=== PATIENT | female | born 1940 | race Caucasian/White ===

== ENCOUNTER 2018-02-23 13:32 | Inpatient (IN) | payer OTHER, MEDICARE ==
[~2018-02-23] VITALS: Ht 170.2 cm; Wt 103.4 kg
[~2018-02-23 13:32] MED LIST: ACTOS15 MG PO; ACTOS45 MG PO; FERROUS SULFATE65 MG PO; FISH OIL1000 MG PO; FUROSEMIDE40 MG PO; GEMFIBROZIL600 MG PO; GLIPIZIDE XL10 MG PO; LEVOTHYROXIN0.075 M1 PO; LOSARTAN POTASS50 MG PO; METFORMIN ER500 MG PO; MORPHINE SULFAT15 M2 PO; OXYCONTIN10 MG PO; PERCOCET 325 MG1 TA2 PO; POTASSIUM CHLO10 MEQ PO; ROZEREM8 MG PO; TRAMADOL HCL50 MG PO; TYLENOL #31 TAB PO; VITAMIN B-121000 MCG PO; VITAMIN D3 202000 IU PO; WARFARIN SODIUM5 MG PO
--- NOTE | 2018-02-23 13:56 | ED SYNCOPE COMPLAINT ---
History of Present Illness General Chief Complaint: Syncope and Near-Syncope Stated Complaint: BIBA SYNCOPE Source: patient, family, old records Exam Limitations: no limitations Vital Signs & Intake/Output Vital Signs & Intake/Output Vital Signs Date Time Temp Pulse Resp B/P B/P Pulse O2 O2 Flow FiO2 Mean Ox Delivery Rate 02/23 1523 155/67 02/23 1448 73 97/47 100 Room Air 02/23 1425 97.0 72 20 105/52 100 Room Air 02/23 1340 74 16 139/60 100 Room Air 02/23 1338 100 Room Air Allergies Coded Allergies: NO KNOWN ALLERGIES (06/01/14) Reconcile Medications Allopurinol 300 MG TABLET 1 TAB PO DAILY GOUT (Reported) Exenatide Microspheres (Bydureon Pen) (Unknown Strength) PEN.INJCTR (Unknown Dose) SC QWED DM (Reported) Furosemide 40 MG TABLET 2 TAB PO QAM DIURETIC (Reported) Gemfibrozil 600 MG TABLET 1 TAB PO BID CHOLESTEROL (Reported) Glipizide (Glipizide ER) 2.5 MG TAB.ER.24 1 TAB PO DAILY DM (Reported) Levothyroxine Sodium 75 MCG TABLET 1 TAB PO DAILY THYROID (Reported) Losartan Potassium 50 MG TABLET 1 TAB PO DAILY BP (Reported) Metformin HCl (Metformin HCl ER) 500 MG TAB.ER.24H 2 TAB PO BID DM (Reported) Potassium Chloride 10 MEQ CAPSULE.ER 1 CAP PO DAILY SUPPLEMENT (Reported) Warfarin Sodium 5 MG TABLET 7.5 MG PO MOWETRFRSASU BLOOD THINNER (Reported) Warfarin Sodium (Coumadin) 10 MG TABLET 1 TAB PO QTUES BLOOD THINNER ( Reported) Triage Note: 78 y/o FEMALE [facility]ODRIGUE[facility]IT[facility]ED SYNCOPE DURING SERVICES. PER FAMILY MEMBER WHO WAS PRESENT, STATES "SHE GOT UP OUT OF THE CAR AND JUST WENT DOWN. A DELICATESSEN DEPARTMENT MANAGER ASSISTED HER DOWN TO THE GROUND. HER LIPS TURNED BLUE AND SHE WAS COLD". PT AROUSABLE, ALERT AND ORIENTED X 3 UPON EMS ARRIVAL. [facility]. ARRIVES TO ED C/O L FLANK PAIN AND NAUSEA. DRY HEAVING IN ROOM EKG IN PROGESSS MD AT BEDSIDE Triage Nurses Notes Reviewed? yes HPI: Patient was at the of her grandson. [place] she is certainly felt very lightheaded and had a syncopal episode. Patient was caught and lowered to the ground. Patient states that while in the religious she developed a sharp stabbing pain in the left side of her back. The pain was constant however, it got much worse with any movement or deep breath. There is no radiation of the pain. At its worst the pain is 10 out of 10 however if she stays still the pain as a 4 out of 10. There is slight nausea but no vomiting. Past History Travel History Traveled to [place] past 21 day No Medical History Any Pertinent Medical History? 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 No Review of Systems Review of Systems Constitutional: Reports: no symptoms. EENTM: Reports: no symptoms. Respiratory: Reports: no symptoms. Cardiovascular: Reports: no symptoms. GI: Reports: see HPI, nausea. Genitourinary: Reports: no symptoms. Musculoskeletal: Reports: see HPI, back pain. Skin: Reports: no symptoms. Neurological/Psychological: Reports: no symptoms. All Other Systems: Reviewed and Negative Physical Exam Physical Exam General Appearance: well developed/nourished, alert, awake, anxious, moderate distress Head: atraumatic, normal appearance Eyes: Bilateral: PERRL, EOMI. Ears, Nose, Throat: normal pharynx, normal ENT inspection, DRY MUCOSA Neck: normal inspection, supple, full range of motion Respiratory: normal breath sounds, chest non-tender, no respiratory distress, lungs clear Cardiovascular: regular rate/rhythm, normal peripheral pulses Gastrointestinal: normal bowel sounds, soft, non-tender, no organomegaly Back: muscle spasm Extremities: normal inspection, normal capillary refill, normal range of motion, no edema Psychiatric: awake, alert, oriented x 3 Cranial Nerves: normal hearing, normal speech, PERRL Motor/Sensory: no motor/sensory deficits Skin: intact, normal color, diaphoresis Core Measures ACS in differential dx? Yes CVA/TIA Diagnosis: No Sepsis Present: No Sepsis Focused Exam Completed? No Progress Differential Diagnosis: AMI, aortic dissection, drug induced syncope, orthostatic syncope, pulmonary embolus, sick sinus syndrome Plan of Care: Orders Procedure Date/time Status Heart Healthy Diet 02/23 D Active ED Holding Orders 02/24 1600 Active Admit to inpatient 02/23 1600 Active Vital Signs 02/23 1600 Active Code Status 02/23 1600 Active PARTIAL THROMBOPLASTIN TIME 02/23 1355 Complete PROTHROMBIN TIME 02/23 1355 Complete URINALYSIS 02/23 1354 Complete TROPONIN LEVEL 02/23 1354 Complete COMPREHENSIVE METABOLIC PANEL 02/23 1354 Complete CBC WITHOUT DIFFERENTIAL 02/23 1354 Complete EKG 02/23 1333 Active Current Medications Sig/Mauro Start time Last Medication Dose Stop Time Status Admin Hydromorphone HCl 0.5 MG ONCE ONE 02/23 1600 AC (Dilaudid) 02/23 1601 Sodium Chloride 1,000 ML ONCE ONE 02/23 1415 AC 02/23 (Normal Saline 0.9%) 02/23 2214 1430 Morphine Sulfate 2 MG ONCE ONE 02/23 1400 CAN (MORPHINE SULFATE) 02/23 1401 Laboratory Tests 02/23/18 1452: Urinalysis LIGHT H, Urine Color YEL, Urine Clarity HAZY H, Urine pH 6.5, Ur Specific [place] 1.010, Urine Protein NEG, Urine Ketones NEG, Urine Nitrite NEG, Urine Bilirubin NEG, Urine Urobilinogen 0.2, Ur Leukocyte Esterase MOD H, Ur Microscopic SEDIMENT EXAMINED, Urine RBC RARE, Urine WBC 5-10 H, Ur Epithelial Cells MANY H, Urine Bacteria FEW H, Urine Mucus RARE, Urine Hemoglobin NEG, Urine Glucose NEG 02/23/18 1403: Anion Gap 14, Estimated GFR 33 L, BUN/Creatinine Ratio 28.7 H, Glucose 254 H, Calcium 9.5, Total Bilirubin 0.6, AST 40 H, ALT 30, Alkaline Phosphatase 74, Troponin I 0.15 *H, Total Protein 6.1 L, Albumin 3.7, Globulin 2.4, Albumin/ Globulin Ratio 1.5, PT 74.5 *H, INR 6.70 *H, APTT 68 H, CBC w Diff NO MAN DIFF REQ, RBC 3.23 L, MCV 95.1, MCH 31.7 H, MCHC 33.4, RDW 15.2 H, MPV 8.6, Gran % 84.4 H, Lymphocytes % 8.5 L, Monocytes % 6.3, Eosinophils % 0.3, Basophils % 0.5, Absolute Granulocytes 12.1 H, Absolute Lymphocytes 1.2, Absolute Monocytes 0.9 H, Absolute Eosinophils 0, Absolute Basophils 0.1 Diagnostic Imaging: Viewed by Me: CT Scan. Discussed w/RAD: CT Scan. Radiology Impression: PATIENT: JAKE MCCANN PRESENT AGE: 78 PATIENT ACCOUNT NO: [id number] : 38 LOCATION: [facility] ORDERING PHYSICIAN: Kodak Lund MD SERVICE DATE: 02/23/18 EXAM TYPE: CAT - CT ABD & PELVIS W/O IV CONTRAS EXAMINATION: CT ABDOMEN AND PELVIS WITHOUT CONTRAST CLINICAL INFORMATION: Flank pain. Syncope. COMPARISON: Pelvic CT 2013. TECHNIQUE: Multidetector volumetric imaging was performed from the superior aspect of the liver through the pubic symphysis. Sagittal and coronal reformatted images were obtained on the technologist's workstation. DLP: 1331 mGy-cm FINDINGS: LUNG BASES: Suspect mild subsegmental atelectasis in the left lower lobe and lingula. Possible trace left pleural fluid without large effusion. Small hiatal hernia. LIVER, GALLBLADDER, AND BILIARY TREE: Suspect mild focal fatty infiltration in segment 4 adjacent to the falciform ligament. There are calculi in the gallbladder fossa, either within the cystic duct or decompressed gallbladder (if no prior history of cholecystectomy). No significant biliary ductal dilatation. PANCREAS: Unremarkable. SPLEEN: Unremarkable. ADRENAL GLANDS: Unremarkable. KIDNEYS AND URETERS: There is heterogeneous material within and abutting the left kidney as well as extending within the left perinephric space. Favor a component of this heterogeneous material represents blood product. Local left perinephric stranding is demonstrated. There is either a heterogeneous fluid collection or mass arising from the posterior aspect of the left mid to lower kidney, measuring approximately 7.1 x 5.0 cm transaxially on image 36/98. Other seemingly loculated/organized fluid tracks along the posterior left pararenal space into the pelvis. No hydronephrosis. No renal or ureteral calculi. BLADDER: No focal abnormality. GASTROINTESTINAL TRACT: Bowel gas pattern is nonobstructive. No evidence of acute bowel inflammation. There are scattered clonic diverticula without evidence of diverticulitis. The appendix is unremarkable. ABDOMINAL WALL : No significant hernia is appreciated. LYMPH NODES: No bulky adenopathy. VASCULAR: Scattered atherosclerotic disease including coronary artery calcification. No AAA. PELVIC VISCERA: No free pelvic fluid. Calcified uterine fibroid. No suspicious adnexal mass. OSSEOUS STRUCTURES: No acute osseous abnormality. Multilevel degenerative changes of the spine. Right proximal femoral hardware is redemonstrated. Healed right pubic bone fracture. IMPRESSION : 1. Heterogeneous abnormal radiodensity extending from the left posterior kidney into the left pararenal space. Findings are concerning for local heterogeneous hemorrhage. The etiology is uncertain, and hemorrhage secondary to supratherapeutic INR or underlying neoplasm can be considered (i.e. renal cell carcinoma or AML). An infectious process is considered less likely. Consider correlation with urinalysis/urine cytology. Recommend short-term followup abdominal MRI or CT scan without and with contrast to assess for an underlying enhancing mass lesion. 2. No AAA. 3. Other nonacute findings as above. Findings and recommendations discussed with Dr. Lund at 3:35 PM on 02/23/2018. 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 <Electronically signed in Other Vendor System> SIGNED BY: Mahamed Driver MD 02/23/18 7444 Initial ED EKG: AFIB, nonspecific ST T wave chg Prior EKG: unchanged Departure Departure Disposition: STILL A PATIENT Condition: Guarded Clinical Impression Primary Impression: Supratherapeutic INR Secondary Impressions: Elevated troponin, Retroperitoneal bleed, Syncope Referrals: Nina Montalvo APRN (PCP/Family) Departure Forms: Customer Survey General Discharge Information Admission Note Spoke With: Samantha Baerd MD Documentation of Exam: Documentation of any treatments & extenuating circumstances including Concerns Regarding Discharge (functional status, medication knowledge or non-compliance, living conditions, etc.) that warrant an admission rather than observation: [ Admit to telemetry, hold Coumadin, cardiology consultation, urology consultation , pain control] Critical Care Note Critical Care Note Critical Care Time: mins: (90MIN)
[2018-02-23 14:35] LABS: ABSOLUTE BASOPHIL COUNT 0.1 /CUMM (0.0-0.2); ABSOLUTE EOSINOPHIL COUNT 0 /CUMM (0.0-0.7); ABSOLUTE GRANULOCYTE CT 12.1 /CUMM (1.4-6.5); ABSOLUTE LYMPH COUNT 1.2 /CUMM (1.2-3.4); ABSOLUTE MONOCYTE COUNT 0.9 /CUMM (0.10-0.60); BASOPHIL % 0.5 % (0.0-2.0); EOSINOPHIL % 0.3 % (0-5); GRANULOCYTE % 84.4 % (42.2-75.2); HEMATOCRIT 30.7 % (37-47); MEAN CORPUSCULAR HGB 31.7 PG (27.0-31.0); MEAN CORPUSCULAR HGB CONC 33.4 G/DL (33.0-37.0); MEAN CORPUSCULAR VOLUME 95.1 FL (81.0-99.0); MEAN PLATELET VOLUME 8.6 FL (7.4-10.4); PLATELET COUNT 264 /CUMM (130-400); RBC DISTRIBUTION WIDTH 15.2 % (11.5-14.5); RED BLOOD CELL CT 3.23 /CUMM (4.20-5.40); WHITE BLOOD CELL COUNT 14.3 /CUMM (4.8-10.8)
[2018-02-23 14:51] LABS: PTT 68 SEC (25-37)
[2018-02-23 14:54] LABS: PT 74.5 SEC (9.4-12.5)
[2018-02-23] MEDS ORDERED: FUROSEMIDE40 M1 PO (15:47)
[2018-02-23] MEDS ORDERED: WARFARIN SODIUM5 M1 PO (15:48)
[2018-02-23] MEDS ORDERED: COUMADIN10 M1 PO (15:48)
[2018-02-23] MEDS ORDERED: GEMFIBROZIL600 M1 PO (15:49)
[2018-02-23] MEDS ORDERED: LOSARTAN POTASS50 M1 PO (15:49)
[2018-02-23] MEDS ORDERED: GLIPIZIDE ER2.5 M1 PO (15:49)
[2018-02-23] MEDS ORDERED: ALLOPURINOL300 M1 PO (15:49)
[2018-02-23] MEDS ORDERED: POTASSIUM CHLO10 ME3 PO (15:49)
[2018-02-23] MEDS ORDERED: LEVOTHYROXINE75 MCG PO (15:49)
[2018-02-23] MEDS ORDERED: METFORMIN HCL500 M4 PO (15:50)
[2018-02-23] MEDS ORDERED: BYDUREON P2 MG/0.65 SC (15:51)
--- NOTE | 2018-02-23 15:52 | CT SCAN REPORT ---
EXAMINATION: CT ABDOMEN AND PELVIS WITHOUT CONTRAST CLINICAL INFORMATION: Flank pain. Syncope. COMPARISON: Pelvic CT 05/31/2014. TECHNIQUE: Multidetector volumetric imaging was performed from the superior aspect of the liver through the pubic symphysis. Sagittal and coronal reformatted images were obtained on the technologist's workstation. DLP: 1331 mGy-cm FINDINGS: LUNG BASES: Suspect mild subsegmental atelectasis in the left lower lobe and lingula. Possible trace left pleural fluid without large effusion. Small hiatal hernia. LIVER, GALLBLADDER, AND BILIARY TREE: Suspect mild focal fatty infiltration in segment 4 adjacent to the falciform ligament. There are calculi in the gallbladder fossa, either within the cystic duct or decompressed gallbladder (if no prior history of cholecystectomy). No significant biliary ductal dilatation. PANCREAS: Unremarkable. SPLEEN: Unremarkable. ADRENAL GLANDS: Unremarkable. KIDNEYS AND URETERS: There is heterogeneous material within and abutting the left kidney as well as extending within the left perinephric space. Favor a component of this heterogeneous material represents blood product. Local left perinephric stranding is demonstrated. There is either a heterogeneous fluid collection or mass arising from the posterior aspect of the left mid to lower kidney, measuring approximately 7.1 x 5.0 cm transaxially on image 36/98. Other seemingly loculated/organized fluid tracks along the posterior left pararenal space into the pelvis. No hydronephrosis. No renal or ureteral calculi. BLADDER: No focal abnormality. GASTROINTESTINAL TRACT: Bowel gas pattern is nonobstructive. No evidence of acute bowel inflammation. There are scattered clonic diverticula without evidence of diverticulitis. The appendix is unremarkable. ABDOMINAL WALL: No significant hernia is appreciated. LYMPH NODES: No bulky adenopathy. VASCULAR: Scattered atherosclerotic disease including coronary artery calcification. No AAA. PELVIC VISCERA: No free pelvic fluid. Calcified uterine fibroid. No suspicious adnexal mass. OSSEOUS STRUCTURES: No acute osseous abnormality. Multilevel degenerative changes of the spine. Right proximal femoral hardware is redemonstrated. Healed right pubic bone fracture. IMPRESSION: 1. Heterogeneous abnormal radiodensity extending from the left posterior kidney into the left pararenal space. Findings are concerning for local heterogeneous hemorrhage. The etiology is uncertain, and hemorrhage secondary to supratherapeutic INR or underlying neoplasm can be considered (i.e. renal cell carcinoma or AML). An infectious process is considered less likely. Consider correlation with urinalysis/urine cytology. Recommend short-term followup abdominal MRI or CT scan without and with contrast to assess for an underlying enhancing mass lesion. 2. No AAA. 3. Other nonacute findings as above. Findings and recommendations discussed with Dr. Lund at 3:35 PM on 02/23/2018.
--- NOTE | 2018-02-23 18:05 | PN- Att Addend ---
Attending Addendum Attending Brief Note 78-year-old female with history of atrial fibrillation on anticoagulation therapy brought in by ambulance for evaluation of syncope episode of low blood pressure. Apparently patient was at the of her grandson earlier on today when she complained of left flank pain. Later on she had a syncopal episode was assisted down by bystanders. She denies any trauma at the time of syncope. She denies any trauma prior to that. In the emergency room she was found to have a supratherapeutic INR. Imaging done to evaluate the cause of her abdominal pain raise concern for left-sided retroperitoneal hemorrhage. She was then referred to medical service for further management. Evaluation emergency room patient was lethargic. She had apparently received doses of morphine and then Dilaudid for pain control. Blood pressure was borderline in the low 100s. She was not tachycardic. EKG showed atrial fibrillation with no ischemic changes. Laboratory data shows hemoglobin of around 10. Examination she is lethargic but oriented 3. Complained of left-sided flank pain during the exam. Pupils were equal and reactive. Heart rate was regular. Lungs are clear to auscultation. Abdomen was soft nontender with normal bowel sounds. She did have left flank tenderness. She had no peripheral edema. Problems: 1. Abnormal troponin; probably secondary to demand ischemia. 2. Hypotension; with concern for hemorrhagic loss 3. Syncope 4. Retroperitoneal hemorrhage 5. Supratherapeutic INR 6. Atrial fibrillation on anticoagulation Plan: -Admit to inpatient medical service for further management. -Further management in the intensive care unit on account of concern for hemorrhage. -Urology Consultation. Differential from renal imaging include malignancy. -Administer 10 mg of vitamin K orally. Transfuse 2 units of FFP. -Place ayers and monitor urine output. -Hold Coumadin therapy for now in view of retroperitoneal hemorrhage and drop in hemoglobin level. -Type and screen 2 units of packed red blood cells. Transfuse for hemoglobin level less than 8. -Repeat CBC now and monitor CBC every 8 hours. -Trend troponins, obtain echocardiogram, cardiology consultation.
[2018-02-23 18:18] LABS: ABSOLUTE BASOPHIL COUNT 0 /CUMM (0.0-0.2); ABSOLUTE EOSINOPHIL COUNT 0 /CUMM (0.0-0.7); ABSOLUTE GRANULOCYTE CT 10.9 /CUMM (1.4-6.5); ABSOLUTE LYMPH COUNT 0.9 /CUMM (1.2-3.4); ABSOLUTE MONOCYTE COUNT 0.8 /CUMM (0.10-0.60); BASOPHIL % 0.3 % (0.0-2.0); EOSINOPHIL % 0 % (0-5); MEAN CORPUSCULAR HGB 31.8 PG (27.0-31.0); MEAN CORPUSCULAR HGB CONC 33.7 G/DL (33.0-37.0); MEAN CORPUSCULAR VOLUME 94.4 FL (81.0-99.0); MEAN PLATELET VOLUME 8.5 FL (7.4-10.4); PLATELET COUNT 266 /CUMM (130-400); RBC DISTRIBUTION WIDTH 15.1 % (11.5-14.5); WHITE BLOOD CELL COUNT 12.7 /CUMM (4.8-10.8)
[2018-02-23 18:33] LABS: HEMATOCRIT 20.7 % (37-47)
[2018-02-23 18:34] LABS: RED BLOOD CELL CT 2.19 /CUMM (4.20-5.40)
[2018-02-23 18:54] LABS: GRANULOCYTE % 86.2 % (42.2-75.2)
--- NOTE | 2018-02-23 19:05 | History & Physical ---
General Information and HPI MD Statement: I have seen and personally examined JAKE MCCANN and documented this H&P. The patient is a 78 year old F who presented with a patient stated chief complaint of [syncope]. Source of Information: patient, family Exam Limitations: no limitations History of Present Illness: Patient is 78 year old female with past medical history significant for atrial fibrillation on Coumadin, diabetes mellitus and spinal stenosis who presented to ED after a syncopal attack. The patient was attending a servces of her grandson who committed suicide last week, while she was in the hindu she felt dizzy and blurry vision, when she was stepping out from the car in the [place] she suddenly lost consciousness didn't fall as he was caught by her family. LOC for 1-2 minutes, when she woke up she was alert oriented, no seizure or urine and stool incontinence. Blood sugar was measured and it was 244, blood pressure was on low side. Patient denied any shortness of breath, chest pain, palpitation. Denied any similar past history. Reportedly patient had a poor oral intake and sleep over the last week because of the tragdy. During interview patient stated feeling blurry vision and feeling nauseated. She was very pale however she was alert oriented 3 and responded appropriately to all my questions. Also patient reported sudden onset of left flank pain while she was in the hindu, she didn't mention anything to the family because she didn't want to scare them, pain was on and off precipitated by emotional feelings. ED pain was severe. No burning with urination, no history of hematuria. Patient usually measured high INR at the cancer center, last visit was 2 weeks ago INR was 2.2. Patient reported education compliance denied any overdose on the warfarin. Allergies/Medications Allergies: Coded Allergies: NO KNOWN ALLERGIES (06/01/14) Home Med list Allopurinol 300 MG TABLET 1 TAB PO DAILY GOUT (Reported) Exenatide Microspheres (Bydureon Pen) (Unknown Strength) PEN.INJCTR (Unknown Dose) SC QWED DM (Reported) Furosemide 40 MG TABLET 2 TAB PO QAM DIURETIC (Reported) Gemfibrozil 600 MG TABLET 1 TAB PO BID CHOLESTEROL (Reported) Glipizide (Glipizide ER) 2.5 MG TAB.ER.24 1 TAB PO DAILY DM (Reported) Levothyroxine Sodium 75 MCG TABLET 1 TAB PO DAILY THYROID (Reported) Losartan Potassium 50 MG TABLET 1 TAB PO DAILY BP (Reported) Metformin HCl (Metformin HCl ER) 500 MG TAB.ER.24H 2 TAB PO BID DM (Reported) Potassium Chloride 10 MEQ CAPSULE.ER 1 CAP PO DAILY SUPPLEMENT (Reported) Warfarin Sodium 5 MG TABLET 7.5 MG PO MOWETRFRSASU BLOOD THINNER (Reported) Warfarin Sodium (Coumadin) 10 MG TABLET 1 TAB PO QTUES BLOOD THINNER ( Reported) Past History Travel History Traveled to [place] past 21 day No Medical History Neurological: NONE EENT: NONE Cardiovascular: AFIB, hypertension Respiratory: NONE Gastrointestinal: NONE Hepatic: NONE Renal: NONE Musculoskeletal: HIP FX Psychiatric: NONE Endocrine: diabetes Blood Disorders: NONE 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 EENTM: Reports: blurred vision. Denies: ear redness. Cardiovascular: Denies: chest pain, orthopena, palpitations, peripheral edema. Respiratory: Denies: cough, hemoptysis, orthopnea, short of breath. GI: Reports: nausea. Denies: abdominal pain, constipation, vomiting. Genitourinary: Denies: discharge, dysuria, frequency. Musculoskeletal: Denies: back pain, joint swelling. Skin: Denies: moles, rash. Neurological/Psychological: Denies: confusion, depressed, dementia. Hematologic/Endocrine: Denies: bruising, bleeding, polyuria. Exam & Diagnostic Data Last 24 Hrs of Vital Signs/I&O Vital Signs Date Time Temp Pulse Resp B/P B/P Pulse O2 O2 Flow FiO2 Mean Ox Delivery Rate 02/23 2056 93 Nasal 3.0L Cannula 02/23 1904 80 19 116/56 100 02/23 1814 110/53 02/23 181 99.1 81 29 114/50 100 02/23 1628 100 13 117/56 100 Room Air 02/23 1523 155/67 02/23 1448 73 97/47 100 Room Air 02/23 1425 97.0 72 20 105/52 100 Room Air 02/23 1340 74 16 139/60 100 Room Air 02/23 1338 100 Room Air Intake & Output 02/23 1600 02/23 0800 02/23 0000 Intake Total Output Total Balance Patient 75.75 kg Weight Weight Reported by Patient Measurement Method Physical Exam General Appearance Alert, Oriented X3, Cooperative, No Acute Distress Skin No Rashes, No Breakdown, No Significant Lesion Skin Temp/Moisture Exam: Warm/Dry HEENT Atraumatic, PERRLA, EOMI, Mucous Membr. moist/pink, Pale conjunctiva Neck Supple Cardiovascular Normal S1, Normal S2, No Murmurs, irregular irregular Lungs Clear to Auscultation, Normal Air Movement Abdomen Normal Bowel Sounds, Soft, No Tenderness, right flank tenderness Neurological Normal Speech, Strength at 5/5 X4 Ext, Normal Tone, Sensation Intact, Cranial Nerves 3-12 NL, Reflexes 2+ Extremities No Clubbing, No Cyanosis, No Edema, Normal Pulses Assessment/Plan Assessment: Patient is 78 year old female with past medical history significant for atrial fibrillation on Coumadin, diabetes mellitus and spinal stenosis who presented to ED after a syncopal attack. Problem list Syncopal attack Spontaneous retroperitoneal hemorrhage Atrial fibrillation with supratherapeutic INR Diabetes Plan Admit to ICU Vitals every hour 2 large IV ports Blood crossmatch Repeat CBC stat Vitamin K and fresh frozen plasma Blood transfusion if hemoglobin less than 8 Stat cardio consultation Stat urology consultation IV fluid bolus 500 mL Nothing by mouth Accu-Chek and NovoLog sliding scale Q6 hours Tramadol for severe pain Echocardiogram Troponins EKG Folic acid CODE STATUS DNR/DNI. CODE STATUS confirmed with the patient's daughter according to the filed living well As Ranked By This Provider Problem List: 1. ATRIAL FIBRILATION 2. Syncope 3. Elevated troponin 4. Retroperitoneal bleed 5. Supratherapeutic INR Core Measures/Misc (06/03) Acute Coronary Syndrome ACS Diagnosis: No Congestive Heart Failure Congestive Heart Failure Diagnosis No Cerebrovascular Accident CVA/TIA Diagnosis: No VTE (View Protocol) VTE Risk Factors Age>40 No Mechanical VTE Prophylaxis d/t N/A MechProphylax Ordered No VTE Pharm Prophylaxis d/t Bleeding (Active) Sepsis (View protocol) Sepsis Present: No If YES complete Sepsis Event Note If YES complete Sepsis Event Note
--- NOTE | 2018-02-23 20:07 | Cons- Cardiology ---
General Information and HPI Consulting Request Date of Consult: 02/23/18 Requested By: Samantha Beard MD Reason for Consult: Retroperitoneal bleed on anticoagulation for permanent atrial fibrillation. Source of Information: patient, old records Exam Limitations: clinical condition History of Present Illness: Mrs. Amna Giron is an 78-year-old female with a history of hypertension, dyslipidemia, diabetes mellitus, obstructive sleep apnea on CPAP, pulmonary nodules, chronic bilateral lower extremity edema, and permanent atrial fibrillation on warfarin anticoagulation who [place] following a witnessed syncopal episode while attending her grandson's service with subsequent complaints of left flank pain and who was discovered to be markedly anemic (hemoglobin 7.0 g/dl), supratherapeutic (INR 6.7), and acute renal failure, and with a positive troponin I (0.19 ng/ml) with a CT of the abdomen/pelvis suspicious for a retroperitoneal hematoma. Allergies/Medications Allergies: Coded Allergies: NO KNOWN ALLERGIES (06/01/14) Home Med List: Allopurinol 300 MG TABLET 1 TAB PO DAILY GOUT (Reported) Exenatide Microspheres (Bydureon Pen) (Unknown Strength) PEN.INJCTR (Unknown Dose) SC QWED DM (Reported) Furosemide 40 MG TABLET 2 TAB PO QAM DIURETIC (Reported) Gemfibrozil 600 MG TABLET 1 TAB PO BID CHOLESTEROL (Reported) Glipizide (Glipizide ER) 2.5 MG TAB.ER.24 1 TAB PO DAILY DM (Reported) Levothyroxine Sodium 75 MCG TABLET 1 TAB PO DAILY THYROID (Reported) Losartan Potassium 50 MG TABLET 1 TAB PO DAILY BP (Reported) Metformin HCl (Metformin HCl ER) 500 MG TAB.ER.24H 2 TAB PO BID DM (Reported) Potassium Chloride 10 MEQ CAPSULE.ER 1 CAP PO DAILY SUPPLEMENT (Reported) Warfarin Sodium 5 MG TABLET 7.5 MG PO MOWETRFRSASU BLOOD THINNER (Reported) Warfarin Sodium (Coumadin) 10 MG TABLET 1 TAB PO QTUES BLOOD THINNER ( Reported) Past History Travel History Traveled to [place] past 21 day No Medical History Neurological: NONE EENT: NONE Cardiovascular: AFIB, hypertension Respiratory: NONE Gastrointestinal: NONE Hepatic: NONE Renal: NONE Musculoskeletal: HIP FX Psychiatric: NONE Endocrine: diabetes Blood Disorders: NONE 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 Surgical History Surgical History: none, non-contributory Family History Relations & Conditions If Any: Relation not specified for: *No pertinent family history Psychosocial History Services at Home: None ETOH Use: denies use Illicit Drug Use: denies illicit drug use Exam & Diagnostic Data Vital Signs and I&O Vital Signs Date Time Temp Pulse Resp B/P B/P Pulse O2 O2 Flow FiO2 Mean Ox Delivery Rate 02/23 1904 80 19 116/56 100 02/23 1814 110/53 02/23 1812 99.1 81 29 114/50 100 02/23 1628 100 13 117/56 100 Room Air 02/23 1523 155/67 02/23 1448 73 97/47 100 Room Air 02/23 1425 97.0 72 20 105/52 100 Room Air 02/23 1340 74 16 139/60 100 Room Air 02/23 1338 100 Room Air Intake & Output 02/23 1600 09 0800 / 0000 / 1600 02/22 0800 /08 0000 Intake Total Output Total Balance Patient 167 lb Weight Weight Reported by Patient Measurement Method Physical Exam: Pale appearing elderly female in mild distress with nasal O2 in place. Vital signs: See above. HEENT: Normocephalic, atraumatic, EOMI, slightly dry mucous membranes. Neck: No JVD, no bruits. Lungs: Clear to auscultation anteriorly. Heart: S1, S2 with grade 1-2/6 systolic murmur best heard near the base. No gallop or rub. Abdomen: Soft, nontender, positive bowel sounds. Extremities: No edema. Labs/Sharan Results: Laboratory Tests 02/23 02/23 1810 1452 Chemistry Troponin I (< 0.11 ng/ml) 0.19 *H Hematology CBC w Diff NO MAN DIFF REQ WBC (4.8 - 10.8 /CUMM) 12.7 H RBC (4.20 - 5.40 /CUMM) 2.19 L Hgb (12.0 - 16.0 G/DL) 7.0 *L Hct (37 - 47 %) 20.7 L MCV (81.0 - 99.0 FL) 94.4 MCH (27.0 - 31.0 PG) 31.8 H MCHC (33.0 - 37.0 G/DL) 33.7 RDW (11.5 - 14.5 %) 15.1 H Plt Count (130 - 400 /CUMM) 266 MPV (7.4 - 10.4 FL) 8.5 Gran % (42.2 - 75.2 %) 86.2 H Lymphocytes % (20.5 - 51.1 %) 7.3 L Monocytes % (1.7 - 9.3 %) 6.2 Eosinophils % (0 - 5 %) 0 Basophils % (0.0 - 2.0 %) 0.3 Absolute Granulocytes (1.4 - 6.5 /CUMM) 10.9 H Absolute Lymphocytes (1.2 - 3.4 /CUMM) 0.9 L Absolute Monocytes (0.10 - 0.60 /CUMM) 0.8 H Absolute Eosinophils (0.0 - 0.7 /CUMM) 0 Absolute Basophils (0.0 - 0.2 /CUMM) 0 Urines Urinalysis LIGHT H Urine Color (YEL,AMB,STR) YEL Urine Clarity (CLEAR) HAZY H Urine pH (5.0 - 8.0) 6.5 Ur Specific [place] (1.001 - 1.035) 1.010 Urine Protein (NEG,<30 MG/DL) NEG Urine Ketones (NEG) NEG Urine Nitrite (NEG) NEG Urine Bilirubin (NEG) NEG Urine Urobilinogen (0.1 - 1.0 EU/dl) 0.2 Ur Leukocyte Esterase (NEG) MOD H Ur Microscopic SEDIMENT EXAMINED Urine RBC (0 - 5 /HPF) RARE Urine WBC (0 - 2 /HPF) 5-10 H Ur Epithelial Cells (NONE,FEW) MANY H Urine Bacteria (NEG/NONE) FEW H Urine Mucus (FEW,NONE) RARE Urine Hemoglobin (NEG) NEG Urine Glucose (N MG/DL) NEG 02/23 1403 Chemistry Sodium (137 - 145 mmol/L) 135 L Potassium (3.5 - 5.1 mmol/L) 4.0 Chloride (98 - 107 mmol/L) 100 Carbon Dioxide (22 - 30 mmol/L) 21 L Anion Gap (5 - 16) 14 BUN (7 - 17 mg/dL) 43 H Creatinine (0.5 - 1.0 mg/dL) 1.5 H Estimated GFR (>60 ml/min) 33 L BUN/Creatinine Ratio (7 - 25 %) 28.7 H Glucose (65 - 99 mg/dL) 254 H Calcium (8.4 - 10.2 mg/dL) 9.5 Total Bilirubin (0.2 - 1.3 mg/dL) 0.6 AST (14 - 36 U/L) 40 H ALT (9 - 52 U/L) 30 Alkaline Phosphatase (<127 U/L) 74 Troponin I (< 0.11 ng/ml) 0.15 *H Total Protein (6.3 - 8.2 g/dL) 6.1 L Albumin (3.5 - 5.0 g/dL) 3.7 Globulin (1.9 - 4.2 gm/dL) 2.4 Albumin/Globulin Ratio (1.1 - 2.2 %) 1.5 Coagulation PT (9.4 - 12.5 SEC) 74.5 *H INR (0.90 - 1.19) 6.70 *H APTT (25 - 37 SEC) 68 H Hematology CBC w Diff NO MAN DIFF REQ WBC (4.8 - 10.8 /CUMM) 14.3 H RBC (4.20 - 5.40 /CUMM) 3.23 L Hgb (12.0 - 16.0 G/DL) 10.3 L Hct (37 - 47 %) 30.7 L MCV (81.0 - 99.0 FL) 95.1 MCH (27.0 - 31.0 PG) 31.7 H MCHC (33.0 - 37.0 G/DL) 33.4 RDW (11.5 - 14.5 %) 15.2 H Plt Count (130 - 400 /CUMM) 264 MPV (7.4 - 10.4 FL) 8.6 Gran % (42.2 - 75.2 %) 84.4 H Lymphocytes % (20.5 - 51.1 %) 8.5 L Monocytes % (1.7 - 9.3 %) 6.3 Eosinophils % (0 - 5 %) 0.3 Basophils % (0.0 - 2.0 %) 0.5 Absolute Granulocytes (1.4 - 6.5 /CUMM) 12.1 H Absolute Lymphocytes (1.2 - 3.4 /CUMM) 1.2 Absolute Monocytes (0.10 - 0.60 /CUMM) 0.9 H Absolute Eosinophils (0.0 - 0.7 /CUMM) 0 Absolute Basophils (0.0 - 0.2 /CUMM) 0.1 Diagnostic Data EKG Results Atrial fibrillation, nondiagnostic ST segment depression, cannot exclude ischemia. Faster rate when compared to previous tracing from 06/08/2016. Other Results CT abdomen/pelvis 02/23/2018: 1. Heterogeneous abnormal radiodensity extending from the left posterior kidney into the left pararenal space. Findings are concerning for local heterogeneous hemorrhage. The etiology is uncertain, and hemorrhage secondary to supratherapeutic INR or underlying neoplasm can be considered (i.e. renal cell carcinoma or AML). An infectious process is considered less likely. Consider correlation with urinalysis/urine cytology. Recommend short-term followup abdominal MRI or CT scan without and with contrast to assess for an underlying enhancing mass lesion. 2. No AAA. 3. Other nonacute findings as above. Assessment/Plan Assessment/Plan [id number] w/ hx HTN, HLD, DM, GERSON on CPAP, pul nodules, ch bilat LE edema, & perm AF on warfarin AC who presented to the ED following a witnessed syncopal episode w/ subsequent c/o L flank pain & who was discovered to be pale, markedly anemic (hemoglobin 7.0 g/dl), w/ a supratherapeutic (INR 6.7), w/ acute renal failure, and a positive troponin I (0.19 ng/ml) w/ a CT of the abd/pelvis suspicious for a retroperitoneal hematoma. Recommendations: * ICU admission, follow-up troponins, follow-up ECGs. * Hold warfarin anticoagulation for the short-term and give fresh frozen plasma. * Hold diuretic, potassium supplements, & angiotensin receptor mi for the short-term. * Continue w/ volume resuscitation, packed red blood cell transfusion, etc. and frequent follow-up labs. * Surgical consultation. * Echocardiogram to assess left ventricular systolic function, given necessity for large amounts of volume. * Obtain CXR now and in a.m. * Mechanical DVT prophylaxis. Further recommendations will follow, Thank you. Consult Acknowledgment - Thank you for your consult request.
--- NOTE | 2018-02-23 20:21 | Cons- Urology ---
General Information and HPI Consulting Request Date of Consult: 02/23/18 Requested By: Kisha TERRY,Samantha Reason for Consult: Retroperitoneal bleed Source of Information: family, old records Exam Limitations: no limitations History of Present Illness: 78 year old female who developed L flank pain while at a and had subsequent syncopal episode. She was brought to the [facility] ER and a CT revealed a L perinephric hematoma with the origin being the posterolateral aspect of the L kidney. No obvious renal lesion seen on the non contrast CT scan. She has hx of A-fib and was found to have INR of 6.7. Initial hematocrit was 30.7 with baseline being 34-37. Hct four hours later was 20.7. There is no hx of gross hematuria and no hx of trauma to the area. Creat is 1.5 and troponin was mildly elevated. She has A-fib, DM, HTN, dyslipidemia and sleep apnea. Allergies/Medications Allergies: Coded Allergies: NO KNOWN ALLERGIES (06/01/14) Home Med List: Allopurinol 300 MG TABLET 1 TAB PO DAILY GOUT (Reported) Exenatide Microspheres (Bydureon Pen) (Unknown Strength) PEN.INJCTR (Unknown Dose) SC QWED DM (Reported) Furosemide 40 MG TABLET 2 TAB PO QAM DIURETIC (Reported) Gemfibrozil 600 MG TABLET 1 TAB PO BID CHOLESTEROL (Reported) Glipizide (Glipizide ER) 2.5 MG TAB.ER.24 1 TAB PO DAILY DM (Reported) Levothyroxine Sodium 75 MCG TABLET 1 TAB PO DAILY THYROID (Reported) Losartan Potassium 50 MG TABLET 1 TAB PO DAILY BP (Reported) Metformin HCl (Metformin HCl ER) 500 MG TAB.ER.24H 2 TAB PO BID DM (Reported) Potassium Chloride 10 MEQ CAPSULE.ER 1 CAP PO DAILY SUPPLEMENT (Reported) Warfarin Sodium 5 MG TABLET 7.5 MG PO MOWETRFRSASU BLOOD THINNER (Reported) Warfarin Sodium (Coumadin) 10 MG TABLET 1 TAB PO QTUES BLOOD THINNER ( Reported) Current Medications: Current Medications Sig/Mauro Start time Last Medication Dose Route Stop Time Status Admin Acetaminophen 650 MG Q6P PRN 02/23 1915 AC PO Acetaminophen 1,000 MG Q6P PRN 02/23 1915 AC IV Acetaminophen 1,000 MG ONCE ONE 02/23 1415 DC 02/23 N/A 1 UNIT IV 02/23 1429 1405 Acetaminophen 0 .STK-MED ONE 02/23 1410 DC IV Dextrose/Sodium 1,000 ML Q13H 02/23 1930 DC Chloride IV 02/24 2129 Hydromorphone HCl 0 .STK-MED ONE 02/23 1606 DC .ROUTE Hydromorphone HCl 0.5 MG ONCE ONE 02/23 1600 DC / IV 02/23 1601 1600 Insulin Aspart 0 TIDAC 02/24 0800 CANr SC Insulin Human Regular 0 Q6 02/23 2359 AC SC Morphine Sulfate 0 .STK-MED ONE 02/23 1536 DC .ROUTE Morphine Sulfate 2 MG ONCE ONE 02/23 1530 DC / IV 02/23 1531 1531 Morphine Sulfate 2 MG ONCE ONE 02/23 1445 DC / IV 02/23 1446 1438 Morphine Sulfate 0 .STK-MED ONE 02/23 1441 DC .ROUTE Morphine Sulfate 2 MG ONCE ONE 02/23 1400 CAN IV 02/23 1401 Ondansetron HCl 0 .STK-MED ONE 02/23 1407 DC .ROUTE Ondansetron HCl 4 MG ONCE ONE 02/23 1400 DC / IV 02/23 1401 1405 Phytonadione 10 MG DAILY 02/23 1744 AC 02/23 PO 1811 Sodium Chloride 500 ML BOLUS ONE 02/23 2015 UNVr IV / 2114 Sodium Chloride 1,000 ML Q10H 02/24 2000 UNVr IV / 1559 Sodium Chloride 500 ML BOLUS ONE 02/23 1745 DC / IV / 1844 1754 Sodium Chloride 1,000 ML ONCE ONE 02/23 1415 AC / IV 02/23 2214 1430 Sodium Chloride 1,000 ML BOLUS ONE 02/23 1400 DC / IV 02/23 1459 1409 Tramadol HCl 50 MG Q4 PRN 02/23 1915 AC PO Past History Medical History Neurological: NONE EENT: NONE Cardiovascular: AFIB, hypertension Respiratory: NONE Gastrointestinal: NONE Hepatic: NONE Renal: NONE Musculoskeletal: HIP FX Psychiatric: NONE Endocrine: diabetes Blood Disorders: NONE 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 Surgical History Pertinent Surgical History: none, non-contributory Family History Relations & Conditions If Any: Relation not specified for: *No pertinent family history Psychosocial History Services at Home: None ETOH Use: denies use Illicit Drug Use: denies illicit drug use Exam & Diagnostic Data Vital Signs and I&O Vital Signs Date Time Temp Pulse Resp B/P B/P Pulse O2 O2 Flow FiO2 Mean Ox Delivery Rate 02/23 1904 80 19 116/56 100 02/23 1814 110/53 02/23 1812 99.1 81 29 114/50 100 / 1628 100 13 117/56 100 Room Air 02/23 1523 155/67 02/23 1448 73 97/47 100 Room Air 02/23 1425 97.0 72 20 105/52 100 Room Air 02/23 1340 74 16 139/60 100 Room Air 02/23 1338 100 Room Air Intake & Output 02/23 1600 02/23 0800 02/23 0000 02/22 1600 02/22 0800 02/22 0000 Intake Total Output Total Balance Patient 167 lb Weight Weight Reported by Patient Measurement Method Back: No CVA tenderness Abd: soft, LUQ tenderness. No definite mass Laboratory Tests 02/23 02/23 1810 1452 Chemistry Troponin I (< 0.11 ng/ml) 0.19 *H Hematology CBC w Diff NO MAN DIFF REQ WBC (4.8 - 10.8 /CUMM) 12.7 H RBC (4.20 - 5.40 /CUMM) 2.19 L Hgb (12.0 - 16.0 G/DL) 7.0 *L Hct (37 - 47 %) 20.7 L MCV (81.0 - 99.0 FL) 94.4 MCH (27.0 - 31.0 PG) 31.8 H MCHC (33.0 - 37.0 G/DL) 33.7 RDW (11.5 - 14.5 %) 15.1 H Plt Count (130 - 400 /CUMM) 266 MPV (7.4 - 10.4 FL) 8.5 Gran % (42.2 - 75.2 %) 86.2 H Lymphocytes % (20.5 - 51.1 %) 7.3 L Monocytes % (1.7 - 9.3 %) 6.2 Eosinophils % (0 - 5 %) 0 Basophils % (0.0 - 2.0 %) 0.3 Absolute Granulocytes (1.4 - 6.5 /CUMM) 10.9 H Absolute Lymphocytes (1.2 - 3.4 /CUMM) 0.9 L Absolute Monocytes (0.10 - 0.60 /CUMM) 0.8 H Absolute Eosinophils (0.0 - 0.7 /CUMM) 0 Absolute Basophils (0.0 - 0.2 /CUMM) 0 Urines Urinalysis LIGHT H Urine Color (YEL,AMB,STR) YEL Urine Clarity (CLEAR) HAZY H Urine pH (5.0 - 8.0) 6.5 Ur Specific [place] (1.001 - 1.035) 1.010 Urine Protein (NEG,<30 MG/DL) NEG Urine Ketones (NEG) NEG Urine Nitrite (NEG) NEG Urine Bilirubin (NEG) NEG Urine Urobilinogen (0.1 - 1.0 EU/dl) 0.2 Ur Leukocyte Esterase (NEG) MOD H Ur Microscopic SEDIMENT EXAMINED Urine RBC (0 - 5 /HPF) RARE Urine WBC (0 - 2 /HPF) 5-10 H Ur Epithelial Cells (NONE,FEW) MANY H Urine Bacteria (NEG/NONE) FEW H Urine Mucus (FEW,NONE) RARE Urine Hemoglobin (NEG) NEG Urine Glucose (N MG/DL) NEG 02/23 1403 Chemistry Sodium (137 - 145 mmol/L) 135 L Potassium (3.5 - 5.1 mmol/L) 4.0 Chloride (98 - 107 mmol/L) 100 Carbon Dioxide (22 - 30 mmol/L) 21 L Anion Gap (5 - 16) 14 BUN (7 - 17 mg/dL) 43 H Creatinine (0.5 - 1.0 mg/dL) 1.5 H Estimated GFR (>60 ml/min) 33 L BUN/Creatinine Ratio (7 - 25 %) 28.7 H Glucose (65 - 99 mg/dL) 254 H Calcium (8.4 - 10.2 mg/dL) 9.5 Total Bilirubin (0.2 - 1.3 mg/dL) 0.6 AST (14 - 36 U/L) 40 H ALT (9 - 52 U/L) 30 Alkaline Phosphatase (<127 U/L) 74 Troponin I (< 0.11 ng/ml) 0.15 *H Total Protein (6.3 - 8.2 g/dL) 6.1 L Albumin (3.5 - 5.0 g/dL) 3.7 Globulin (1.9 - 4.2 gm/dL) 2.4 Albumin/Globulin Ratio (1.1 - 2.2 %) 1.5 Coagulation PT (9.4 - 12.5 SEC) 74.5 *H INR (0.90 - 1.19) 6.70 *H APTT (25 - 37 SEC) 68 H Hematology CBC w Diff NO MAN DIFF REQ WBC (4.8 - 10.8 /CUMM) 14.3 H RBC (4.20 - 5.40 /CUMM) 3.23 L Hgb (12.0 - 16.0 G/DL) 10.3 L Hct (37 - 47 %) 30.7 L MCV (81.0 - 99.0 FL) 95.1 MCH (27.0 - 31.0 PG) 31.7 H MCHC (33.0 - 37.0 G/DL) 33.4 RDW (11.5 - 14.5 %) 15.2 H Plt Count (130 - 400 /CUMM) 264 MPV (7.4 - 10.4 FL) 8.6 Gran % (42.2 - 75.2 %) 84.4 H Lymphocytes % (20.5 - 51.1 %) 8.5 L Monocytes % (1.7 - 9.3 %) 6.3 Eosinophils % (0 - 5 %) 0.3 Basophils % (0.0 - 2.0 %) 0.5 Absolute Granulocytes (1.4 - 6.5 /CUMM) 12.1 H Absolute Lymphocytes (1.2 - 3.4 /CUMM) 1.2 Absolute Monocytes (0.10 - 0.60 /CUMM) 0.9 H Absolute Eosinophils (0.0 - 0.7 /CUMM) 0 Absolute Basophils (0.0 - 0.2 /CUMM) 0.1 CT scan images reviewed with findings discussed above Assessment/Plan Assessment/Plan Imp: 1. Spontaneous L perinephric/retroperitoneal hematoma in setting of supratherapeutic INR with significant anemia Plan: 1. Hold coumadin and reverse coagulopathy with FFP 2. Transfuse PRBC's 3. Place ayers 4. Maintain at least 2 large bore IV's at all times 5. Treatment for retroperitoneal hematoma is conservative with fluid resusitation and transfusion. If patient continues to bleed when coagulopathy is corrected then next step is angiography and selective embolization by IR 6. Once patien recovers will need further imaging of kidneys with either CT or MRI without and with IV contrast Consult Acknowledgment - Thank you for your consult request.
--- NOTE | 2018-02-23 21:21 | RADIOLOGY REPORT ---
EXAMINATION: XR CHEST, PORTABLE CLINICAL INFORMATION: Right chest pain. Retroperitoneal bleeding. COMPARISON: Chest radiography 10/15/2017. TECHNIQUE: Portable frontal view of the chest was obtained. FINDINGS: The lungs are well expanded. Linear opacification in the left lower lung suggesting subsegmental atelectasis. Suspect a degree of bronchovascular crowding over the right lower lung (less likely consolidation). No pneumothorax or pleural effusion. No pulmonary edema. No mediastinal widening. No acute osseous abnormalities. Healed bilateral rib fractures. IMPRESSION: 1. Suspected focal bronchovascular crowding versus less likely parenchymal opacification overlying the right lower lung, which is of indeterminate/doubtful clinical significance. 2. Left lower lung subsegmental atelectasis.
[2018-02-24] VITALS: BP 80/40
[2018-02-24 05:34] LABS: ABSOLUTE BASOPHIL COUNT 0 /CUMM (0.0-0.2); ABSOLUTE EOSINOPHIL COUNT 0 /CUMM (0.0-0.7); ABSOLUTE GRANULOCYTE CT 16.4 /CUMM (1.4-6.5); ABSOLUTE MONOCYTE COUNT 1.2 /CUMM (0.10-0.60); BASOPHIL % 0.1 % (0.0-2.0); EOSINOPHIL % 0 % (0-5); GRANULOCYTE % 88.2 % (42.2-75.2); HEMATOCRIT 25.3 % (37-47); MEAN CORPUSCULAR HGB 31.2 PG (27.0-31.0); MEAN CORPUSCULAR HGB CONC 33.8 G/DL (33.0-37.0); MEAN CORPUSCULAR VOLUME 92.5 FL (81.0-99.0); MEAN PLATELET VOLUME 8.6 FL (7.4-10.4); PLATELET COUNT 198 /CUMM (130-400); RBC DISTRIBUTION WIDTH 15.6 % (11.5-14.5); RED BLOOD CELL CT 2.73 /CUMM (4.20-5.40); WHITE BLOOD CELL COUNT 18.6 /CUMM (4.8-10.8)
[2018-02-24 05:40] LABS: PT 34.7 SEC (9.4-12.5)
--- NOTE | 2018-02-24 07:19 | RADIOLOGY REPORT ---
EXAMINATION: XR PORTABLE CHEST CLINICAL INFORMATION: Syncope, right chest pain. COMPARISON: February 23, 2018 and October 15, 2017 TECHNIQUE: Portable frontal view of the chest was obtained. FINDINGS: There are small lung volumes. There is some scarring noted within the left lung. No definite acute parenchymal disease is identified. No pneumothorax or significant pleural effusion. The cardiopericardial silhouette appears mildly enlarged. No evidence of pulmonary edema. Old healed right rib fractures present. IMPRESSION: No acute disease.
--- NOTE | 2018-02-24 08:22 | PN- Att Addend ---
Attending Addendum Attending Brief Note Patient seen and examined. Blood pressure has improved although occasionally low. She received a total of 2 units of blood yesterday. She also received FFP transfusion and vitamin K. She reports that her left flank pain has improved with analgesic therapy although still present. Anxiety plays however urine output is significantly decreased. Gen. appearance: Not in acute distress. Heart: S1-S2 irregular Lungs: Adequate entry bilaterally with no added sounds. Abdomen: Obese, soft, left flank tenderness. No rebound or guarding. Extremities: No pedal edema. Skin: Intact Laboratory Tests 02/24/18 0903: Lactic Acid 1.8 02/24/18 0600: CBC w Diff Cancelled, WBC Cancelled, RBC Cancelled, Hgb Cancelled, Hct Cancelled , MCV Cancelled, MCH Cancelled, MCHC Cancelled, RDW Cancelled, Plt Count Cancelled, MPV Cancelled 02/24/18 0517: Lactic Acid 3.2 H 02/24/18 0517: Anion Gap 15, Estimated GFR 21 L, Glucose 175 H, Calcium 9.0, Phosphorus 7.2 H, Magnesium 2.7 H, Total Bilirubin 1.1, AST 151 H, ALT 79 H, Troponin I 0.23 *H, [id number] Pept 83459 H, Albumin 3.3 L, PT 34.7 H, INR 3.15 H, CBC w Diff NO MAN DIFF REQ, RBC 2.73 L, MCV 92.5, MCH 31.2 H, MCHC 33.8, RDW 15.6 H, MPV 8.6, Gran % 88.2 H, Lymphocytes % 5.5 L, Monocytes % 6.2, Eosinophils % 0, Basophils % 0.1, Absolute Granulocytes 16.4 H, Absolute Lymphocytes 1.0 L, Absolute Monocytes 1.2 H, Absolute Eosinophils 0, Absolute Basophils 0 02/24/18 0443: Gue-U-Qvydcafkipo Pept Cancelled 02/24/18 0047: Troponin I 0.23 *H 02/24/18 0047: Lactic Acid 8.8 H 02/23/18 1810: Troponin I 0.19 *H, CBC w Diff NO MAN DIFF REQ, RBC 2.19 L, MCV 94.4, MCH 31.8 H, MCHC 33.7, RDW 15.1 H, MPV 8.5, Gran % 86.2 H, Lymphocytes % 7.3 L, Monocytes % 6.2, Eosinophils % 0, Basophils % 0.3, Absolute Granulocytes 10.9 H , Absolute Lymphocytes 0.9 L, Absolute Monocytes 0.8 H, Absolute Eosinophils 0 , Absolute Basophils 0 02/23/18 1452: Urinalysis LIGHT H, Urine Color YEL, Urine Clarity HAZY H, Urine pH 6.5, Ur Specific [place] 1.010, Urine Protein NEG, Urine Ketones NEG, Urine Nitrite NEG, Urine Bilirubin NEG, Urine Urobilinogen 0.2, Ur Leukocyte Esterase MOD H, Ur Microscopic SEDIMENT EXAMINED, Urine RBC RARE, Urine WBC 5-10 H, Ur Epithelial Cells MANY H, Urine Bacteria FEW H, Urine Mucus RARE, Urine Hemoglobin NEG, Urine Glucose NEG 02/23/18 1403: Anion Gap 14, Estimated GFR 33 L, BUN/Creatinine Ratio 28.7 H, Glucose 254 H, Calcium 9.5, Total Bilirubin 0.6, AST 40 H, ALT 30, Alkaline Phosphatase 74, Troponin I 0.15 *H, Total Protein 6.1 L, Albumin 3.7, Globulin 2.4, Albumin/ Globulin Ratio 1.5, PT 74.5 *H, INR 6.70 *H, APTT 68 H, CBC w Diff NO MAN DIFF REQ, RBC 3.23 L, MCV 95.1, MCH 31.7 H, MCHC 33.4, RDW 15.2 H, MPV 8.6, Gran % 84.4 H, Lymphocytes % 8.5 L, Monocytes % 6.3, Eosinophils % 0.3, Basophils % 0.5, Absolute Granulocytes 12.1 H, Absolute Lymphocytes 1.2, Absolute Monocytes 0.9 H, Absolute Eosinophils 0, Absolute Basophils 0.1 Microbiology 02/24 545 BLOOD: Blood Culture - RECD 02/24 05 BLOOD: Blood Culture - RECD 02/24 0047 STOOL: Clostridium difficile Toxin A & B - RECD 02/23 2100 UPPER RESP: Surveillance Culture - RECD 02/23 1846 URINE ROUT: Urine Culture - COLB Problems: 1. Acute blood loss anemia 2. Demand ischemia 3. Retroperitoneal hematoma 4. Supratherapeutic INR 5. Acute kidney injury 6. Hypotension; resolved Plan: -Hemoglobin level improved following transfusion of 2 units of packed red blood cells yesterday. Repeat hemoglobin level at noon today. Transfuse to keep hemoglobin level greater than 8. -INR has improved following FFP transfusion and vitamin K administration yesterday. Continue to monitor INR daily. Hold off further reversal unless patient is showing signs of active bleeding. -Continue to trend troponin levels daily until trending downwards. Follow-up echocardiogram to evaluate for wall motion abnormality or other evidence of significant myocardial injury. Continue telemetry monitoring for now. -Patient reported to have low urine output overnight. Keep Christianson catheter in place. Continue to monitor input output. Continue fluid resuscitation. Repeat serum chemistry this afternoon. Follow-up with the urology service. -Obtain renal consultation given her poor urine output. Follow-up potassium level on repeat labs. No evidence of pulmonary congestion on x-ray this morning. -Continue current pain regimen with tramadol with Dilaudid for breakthrough. Discontinue IV Tylenol for now. -DVT prophylaxis with bilateral compression device. -
--- NOTE | 2018-02-24 08:44 | PN- Housestaff ---
Subjective Follow-up For: Supratherapeutic INR retroperitoneal hematoma Demand ischemia Complaints: pain scale (0-10), complaining of pain in the left side of the abdomen Tele-Events Since Last Visit: She had episodes of bradycardia in the range of 39, today, EKG showed atrial fibrillation with controlled ventricular rate, ST segment depression in flexion, aVF, V4. Review of Systems Constitutional: Reports: no symptoms. Gastrointestinal: Reports: abdominal pain, diarrhea, nausea, vomiting. Objective Last 24 Hrs of Vital Signs/I&O Vital Signs Date Time Temp Pulse Resp B/P B/P Pulse O2 O2 Flow FiO2 Mean Ox Delivery Rate 02/24 0910 97.4 90 30 102/58 98 Nasal 2.0L Cannula 02/24 0800 98 Room Air 02/24 0353 100 CPAP 2.0L 02/24 0018 100 CPAP 2.0L 02/24 0000 96.2 83 13 80/40 100 CPAP 2.0L 02/24 0000 100 CPAP 2.0L 02/23 2056 93 Nasal 3.0L Cannula 02/23 1904 80 19 116/56 100 02/23 1814 110/53 02/23 1812 99.1 81 29 114/50 100 / 1628 100 13 117/56 100 Room Air 02/23 1523 155/67 02/23 1448 73 97/47 100 Room Air 02/23 1425 97.0 72 20 105/52 100 Room Air 02/23 1340 74 16 139/60 100 Room Air 02/23 1338 100 Room Air Intake & Output 02/24 1600 /10 0800 02/24 0000 Intake Total 1226 2250 Output Total 210 200 Balance 1016 2049 Intake, Blood 694 650 Product Intake, IV 532 1600 Intake, Oral 0 0 Number 3 2 Bowel Movements Output, 150 Emesis Output, Urine 60 200 Patient 98 kg Weight Weight Bed scale Measurement Method Physical Exam General Appearance: Alert, Oriented X3, Cooperative, No Acute Distress Skin: No Rashes, pale HEENT: Atraumatic, PERRLA, EOMI Neck: Supple, No JVD Cardiovascular: Normal S1, Normal S2 Lungs: Clear to Auscultation, Normal Air Movement Abdomen: Soft, tender left flank Neurological: Normal Speech Extremities: No Clubbing, No Cyanosis, No Edema Vascular: Normal Pulses, Pulses Symmetrical Current Medications: Current Medications Sig/Mauro Start time Last Medication Dose Route Stop Time Status Admin Acetaminophen 650 MG Q6P PRN 02/23 1915 DC PO Acetaminophen 1,000 MG Q6P PRN 02/23 1915 DC 02/24 IV 0157 Acetaminophen 1,000 MG ONCE ONE 02/23 1415 DC 02/23 N/A 1 UNIT IV 02/23 1429 1405 Acetaminophen 0 .STK-MED ONE 02/23 1410 DC IV Dextrose/Sodium 1,000 ML Q13H 02/23 1930 DC Chloride IV 02/24 2129 Furosemide 20 MG ONCE ONE 02/24 0645 DC 02/24 IV 02/24 0646 0639 Hydromorphone HCl 0.2 MG Q4P PRN 02/24 1045 UNVr IV Hydromorphone HCl 0.5 MG ONCE ONE 02/24 0630 DC 02/24 IV 02/24 0631 0628 Hydromorphone HCl 0.5 MG ONCE ONE 02/24 0345 DC 02/24 IV 02/24 0346 0334 Hydromorphone HCl 0 .STK-MED ONE 02/23 1606 DC .ROUTE Hydromorphone HCl 0.5 MG ONCE ONE 02/23 1600 DC 02/23 IV 02/23 1601 1600 Insulin Aspart 0 TIDAC 02/24 0800 CAN SC Insulin Human Regular 0 Q6 02/23 2359 AC 02/24 SC 0613 Morphine Sulfate 0 .STK-MED ONE 02/23 1536 DC .ROUTE Morphine Sulfate 2 MG ONCE ONE 02/23 1530 DC 02/23 IV 02/23 1531 1531 Morphine Sulfate 2 MG ONCE ONE 02/23 1445 DC 02/23 IV 02/23 1446 1438 Morphine Sulfate 0 .STK-MED ONE 02/23 1441 DC .ROUTE Morphine Sulfate 2 MG ONCE ONE 02/23 1400 CAN IV 02/23 1401 Ondansetron HCl 4 MG Q6P PRN 02/24 1045 UNVr IV Ondansetron HCl 0 .STK-MED ONE 02/23 1407 DC .ROUTE Ondansetron HCl 4 MG ONCE ONE 02/23 1400 DC 02/23 IV 02/23 1401 1405 Phytonadione 10 MG DAILY 02/23 1744 r 02/24 PO 02/25 0901 0942 Sodium Chloride 500 ML BOLUS ONE 02/24 1045 UNVr 02/24 IV 06/10 1144 1049 Sodium Chloride 250 ML BOLUS ONE 02/24 0445 CAN IV 02/24 0624 Sodium Chloride 500 ML BOLUS ONE 02/23 2015 DC 02/23 IV 02/23 2114 2021 Sodium Chloride 1,000 ML Q10H 02/23 2000 r 02/24 IV 02/24 1359 0610 Sodium Chloride 500 ML BOLUS ONE 02/23 1745 DC / IV 02/23 1844 1754 Sodium Chloride 1,000 ML ONCE ONE 02/23 1415 DC 02/23 IV 02/23 2214 1430 Sodium Chloride 1,000 ML BOLUS ONE 02/23 1400 DC 02/23 IV 02/23 1459 1409 Tramadol HCl 50 MG Q6 02/24 1200 CANr PO Tramadol HCl 50 MG Q4 PRN 02/23 1915 DC 02/24 PO 0902 Trimethobenzamide HCl 200 MG ONCE ONE 02/23 2345 DC 02/23 IM 02/23 2346 2352 Last 24 Hrs of Lab/Sharan Results Last 24 Hrs of Labs/Mics: Laboratory Tests 02/24/18 0903: Lactic Acid 1.8 02/24/18 0600: CBC w Diff Cancelled, WBC Cancelled, RBC Cancelled, Hgb Cancelled, Hct Cancelled , MCV Cancelled, MCH Cancelled, MCHC Cancelled, RDW Cancelled, Plt Count Cancelled, MPV Cancelled 02/24/18 0517: Lactic Acid 3.2 H 02/24/18 0517: Anion Gap 15, Estimated GFR 21 L, Glucose 175 H, Calcium 9.0, Phosphorus 7.2 H, Magnesium 2.7 H, Total Bilirubin 1.1, AST 151 H, ALT 79 H, Troponin I 0.23 *H, Stx-E-Vzakpcmsgza Pept 65358 H, Albumin 3.3 L, PT 34.7 H, INR 3.15 H, CBC w Diff NO MAN DIFF REQ, RBC 2.73 L, MCV 92.5, MCH 31.2 H, MCHC 33.8, RDW 15.6 H, MPV 8.6, Gran % 88.2 H, Lymphocytes % 5.5 L, Monocytes % 6.2, Eosinophils % 0, Basophils % 0.1, Absolute Granulocytes 16.4 H, Absolute Lymphocytes 1.0 L, Absolute Monocytes 1.2 H, Absolute Eosinophils 0, Absolute Basophils 0 02/24/18 0443: Xgs-C-Vqtvglhince Pept Cancelled 02/24/18 0047: Troponin I 0.23 *H 02/24/18 0047: Lactic Acid 8.8 H 02/23/18 1810: Troponin I 0.19 *H, CBC w Diff NO MAN DIFF REQ, RBC 2.19 L, MCV 94.4, MCH 31.8 H, MCHC 33.7, RDW 15.1 H, MPV 8.5, Gran % 86.2 H, Lymphocytes % 7.3 L, Monocytes % 6.2, Eosinophils % 0, Basophils % 0.3, Absolute Granulocytes 10.9 H , Absolute Lymphocytes 0.9 L, Absolute Monocytes 0.8 H, Absolute Eosinophils 0 , Absolute Basophils 0 02/23/18 1452: Urinalysis LIGHT H, Urine Color YEL, Urine Clarity HAZY H, Urine pH 6.5, Ur Specific [place] 1.010, Urine Protein NEG, Urine Ketones NEG, Urine Nitrite NEG, Urine Bilirubin NEG, Urine Urobilinogen 0.2, Ur Leukocyte Esterase MOD H, Ur Microscopic SEDIMENT EXAMINED, Urine RBC RARE, Urine WBC 5-10 H, Ur Epithelial Cells MANY H, Urine Bacteria FEW H, Urine Mucus RARE, Urine Hemoglobin NEG, Urine Glucose NEG 02/23/18 1403: Anion Gap 14, Estimated GFR 33 L, BUN/Creatinine Ratio 28.7 H, Glucose 254 H, Calcium 9.5, Total Bilirubin 0.6, AST 40 H, ALT 30, Alkaline Phosphatase 74, Troponin I 0.15 *H, Total Protein 6.1 L, Albumin 3.7, Globulin 2.4, Albumin/ Globulin Ratio 1.5, PT 74.5 *H, INR 6.70 *H, APTT 68 H, CBC w Diff NO MAN DIFF REQ, RBC 3.23 L, MCV 95.1, MCH 31.7 H, MCHC 33.4, RDW 15.2 H, MPV 8.6, Gran % 84.4 H, Lymphocytes % 8.5 L, Monocytes % 6.3, Eosinophils % 0.3, Basophils % 0.5, Absolute Granulocytes 12.1 H, Absolute Lymphocytes 1.2, Absolute Monocytes 0.9 H, Absolute Eosinophils 0, Absolute Basophils 0.1 Microbiology 02/24 545 BLOOD: Blood Culture - RECD 02/24 517 BLOOD: Blood Culture - RECD 06/10 0047 STOOL: Clostridium difficile Toxin A & B - RECD 02/23 2100 UPPER RESP: Surveillance Culture - RECD 02/23 1846 URINE ROUT: Urine Culture - COLB Assessment/Plan Assessment: Patient is an 78-year-old female with significant past medical history of hypertension, hyperlipidemia, hypothyroidism, type 2 diabetes, obstructive sleep apnea on CPAP, hereditary Vitiligo, chronic atrial fibrillation on Coumadin, presented after an episode of emotional stress ( of grandson), leading to syncopal episode and left flank pain and found to have left-sided retroperitoneal/perinephric hematoma. Vital signs-afebrile, heart rate in the range of 86, blood pressure 111/44, SPO2 100%, intake/output-3476/410. Left retroperitoneal hematoma adjacent to left mid to lower kidney/left perinephric space - * She was complaining of pain, on the left flank region and nausea. * We will give inj Dilaudid, 0.2 mgs every 6 when necessary. Supratherapeutic INR - * Today's PT/INR is 2.15, after 2 units of FFP and Tab vitamin K 10 milligrams * We will repeat PT/INR tomorrow * Tab Vit K 10mg x 3 days. * Watch for bleeding. Type II IA, Demand ischemia - * Her troponins is now stabilized 0.23, we will recheck in the afternoon. Currently, EKG showing ST segment depression in second, third aVF and V4. * We will follow the echocardiogram -superficial report is preserved ejection fraction and no regional wall motion abnormality * We'll follow the cardiology recommendation Acute kidney injury, oliguric - * Her last echocardiogram shows ejection fraction of 65%(2012). * We gave injection normal saline 500 mL bolus, followed by normal saline 125 cc per hour. * We placed nephrology consultation and follow the recommendation * Strict intake output charting. * Continue Christianson catheterization. * Avoid nephrotoxic medication including NSAIDs Atrial fibrillation with controlled ventricular rate, Coumadin on hold - * Her primary mixer lever operator is Dr. Corley and she had follow-up on 02/27/2018 * We will follow echocardiogram. * We will follow cardiology recommendation and inform Dr. Corley tomorrow Type 2 diabetes mellitus- * Nothing by mouth * Blood sugar charting every 6 hourly. * NovoLog according to the sliding scale. * After IV fluids we will start patient on D5 half normal saline 50 mL per hour Chronic medical condition-hypothyroidism, hypertension, hyperlipidemia, obstructive sleep apnea- * We will start on tablet levothyroxin 75mcg daily * We will hold antihypertensive for now until she stabilized * CPAP overnight CODE STATUS -DNR/DNI. DVT prophylaxis -ALPS, avoid Coumadin, heparin Diet -nothing by mouth for now,if hemoglobin remained stable than will start on clear liquid diet Problem List: 1. Hypothyroidism 2. Obstructive sleep apnea syndrome 3. Supratherapeutic INR 4. Retroperitoneal bleed 5. Elevated troponin 6. Syncope Pain Ratin Pain Location: Left-sided flank Pain Goal: Remain pain free Pain Plan: Avoid NSAIDs Tomorrow's Labs & Rationales: Follow-up with CBC, BEP, magnesium, PT/INR DVT/Prophylaxis: mechanical Consulting Request: Consulting Specialty: Nephrology
--- NOTE | 2018-02-24 08:46 | PN- Urology ---
Subjective Subjective: No acute distress BP somewhat variable but more stable than last PM Objective Vital Signs and I&Os Vital Signs Date Time Temp Pulse Resp B/P B/P Pulse O2 O2 Flow FiO2 Mean Ox Delivery Rate 02/24 0353 100 CPAP 2.0L 02/24 0018 100 CPAP 2.0L 02/24 0000 96.2 83 13 80/40 100 CPAP 2.0L 02/24 0000 100 CPAP 2.0L 02/23 2056 93 Nasal 3.0L Cannula 02/23 1904 80 19 116/56 100 02/23 1814 110/53 02/23 1812 99.1 81 29 114/50 100 02/23 1628 100 13 117/56 100 Room Air 02/23 1523 155/67 02/23 1448 73 97/47 100 Room Air 02/23 1425 97.0 72 20 105/52 100 Room Air 02/23 1340 74 16 139/60 100 Room Air 02/23 1338 100 Room Air Intake & Output 02/24 1600 02/24 0800 02/24 0000 02/23 1600 02/23 0800 02/23 0000 Intake Total 1226 2250 1000 Output Total 210 200 Balance 1016 2050 1000 Intake, Blood 694 650 Product Intake, IV 532 1600 1000 Intake, Oral 0 0 Number 3 2 Bowel Movements Output, 150 Emesis Output, Urine 60 200 Patient 216 lb 167 lb Weight Weight Bed scale Reported by Patient Measurement Method Abd: soft, LUQ tenderness. No palpable mass Genitalia: ayers in place. Urine output is low Hct responded to 2 units of PRBC's. INR improved to 3.15 Laboratory Tests 02/24 02/24 02/24 0600 0517 0517 Chemistry Sodium (137 - 145 mmol/L) 137 Potassium (3.5 - 5.1 mmol/L) 5.2 H Chloride (98 - 107 mmol/L) 103 Carbon Dioxide (22 - 30 mmol/L) 19 L Anion Gap (5 - 16) 15 BUN (7 - 17 mg/dL) 52 H Creatinine (0.5 - 1.0 mg/dL) 2.2 H Estimated GFR (>60 ml/min) 21 L Glucose (65 - 99 mg/dL) 175 H Lactic Acid (0.7 - 2.1 mmol/L) 3.2 H Calcium (8.4 - 10.2 mg/dL) 9.0 Phosphorus (2.5 - 4.5 mg/dL) 7.2 H Magnesium (1.6 - 2.3 mg/dL) 2.7 H Total Bilirubin (0.2 - 1.3 mg/dL) 1.1 AST (14 - 36 U/L) 151 H ALT (9 - 52 U/L) 79 H Troponin I (< 0.11 ng/ml) 0.23 *H Tse-M-Vzhetbvcixw Pept (<125 pg/mL) 03090 H Albumin (3.5 - 5.0 g/dL) 3.3 L Coagulation PT (9.4 - 12.5 SEC) 34.7 H INR (0.90 - 1.19) 3.15 H Hematology CBC w Diff Cancelled NO MAN DIFF REQ WBC (4.8 - 10.8 /CUMM) Cancelled 18.6 H RBC (4.20 - 5.40 /CUMM) Cancelled 2.73 L Hgb (12.0 - 16.0 G/DL) Cancelled 8.5 L Hct (37 - 47 %) Cancelled 25.3 L MCV (81.0 - 99.0 FL) Cancelled 92.5 MCH (27.0 - 31.0 PG) Cancelled 31.2 H MCHC (33.0 - 37.0 G/DL) Cancelled 33.8 RDW (11.5 - 14.5 %) Cancelled 15.6 H Plt Count (130 - 400 /CUMM) Cancelled 198 MPV (7.4 - 10.4 FL) Cancelled 8.6 Gran % (42.2 - 75.2 %) 88.2 H Lymphocytes % (20.5 - 51.1 %) 5.5 L Monocytes % (1.7 - 9.3 %) 6.2 Eosinophils % (0 - 5 %) 0 Basophils % (0.0 - 2.0 %) 0.1 Absolute Granulocytes (1.4 - 6.5 /CUMM) 16.4 H Absolute Lymphocytes (1.2 - 3.4 /CUMM) 1.0 L Absolute Monocytes (0.10 - 0.60 /CUMM) 1.2 H Absolute Eosinophils (0.0 - 0.7 /CUMM) 0 Absolute Basophils (0.0 - 0.2 /CUMM) 0 02/24 02/24 02/24 0443 0047 0047 Chemistry Lactic Acid (0.7 - 2.1 mmol/L) 8.8 H Troponin I (< 0.11 ng/ml) 0.23 *H Xac-M-Aqygpininfo Pept Cancelled 02/23 02/23 1810 1452 Chemistry Troponin I (< 0.11 ng/ml) 0.19 *H Hematology CBC w Diff NO MAN DIFF REQ WBC (4.8 - 10.8 /CUMM) 12.7 H RBC (4.20 - 5.40 /CUMM) 2.19 L Hgb (12.0 - 16.0 G/DL) 7.0 *L Hct (37 - 47 %) 20.7 L MCV (81.0 - 99.0 FL) 94.4 MCH (27.0 - 31.0 PG) 31.8 H MCHC (33.0 - 37.0 G/DL) 33.7 RDW (11.5 - 14.5 %) 15.1 H Plt Count (130 - 400 /CUMM) 266 MPV (7.4 - 10.4 FL) 8.5 Gran % (42.2 - 75.2 %) 86.2 H Lymphocytes % (20.5 - 51.1 %) 7.3 L Monocytes % (1.7 - 9.3 %) 6.2 Eosinophils % (0 - 5 %) 0 Basophils % (0.0 - 2.0 %) 0.3 Absolute Granulocytes (1.4 - 6.5 /CUMM) 10.9 H Absolute Lymphocytes (1.2 - 3.4 /CUMM) 0.9 L Absolute Monocytes (0.10 - 0.60 /CUMM) 0.8 H Absolute Eosinophils (0.0 - 0.7 /CUMM) 0 Absolute Basophils (0.0 - 0.2 /CUMM) 0 Urines Urinalysis LIGHT H Urine Color (YEL,AMB,STR) YEL Urine Clarity (CLEAR) HAZY H Urine pH (5.0 - 8.0) 6.5 Ur Specific [place] (1.001 - 1.035) 1.010 Urine Protein (NEG,<30 MG/DL) NEG Urine Ketones (NEG) NEG Urine Nitrite (NEG) NEG Urine Bilirubin (NEG) NEG Urine Urobilinogen (0.1 - 1.0 EU/dl) 0.2 Ur Leukocyte Esterase (NEG) MOD H Ur Microscopic SEDIMENT EXAMINED Urine RBC (0 - 5 /HPF) RARE Urine WBC (0 - 2 /HPF) 5-10 H Ur Epithelial Cells (NONE,FEW) MANY H Urine Bacteria (NEG/NONE) FEW H Urine Mucus (FEW,NONE) RARE Urine Hemoglobin (NEG) NEG Urine Glucose (N MG/DL) NEG 02/23 1403 Chemistry Sodium (137 - 145 mmol/L) 135 L Potassium (3.5 - 5.1 mmol/L) 4.0 Chloride (98 - 107 mmol/L) 100 Carbon Dioxide (22 - 30 mmol/L) 21 L Anion Gap (5 - 16) 14 BUN (7 - 17 mg/dL) 43 H Creatinine (0.5 - 1.0 mg/dL) 1.5 H Estimated GFR (>60 ml/min) 33 L BUN/Creatinine Ratio (7 - 25 %) 28.7 H Glucose (65 - 99 mg/dL) 254 H Calcium (8.4 - 10.2 mg/dL) 9.5 Total Bilirubin (0.2 - 1.3 mg/dL) 0.6 AST (14 - 36 U/L) 40 H ALT (9 - 52 U/L) 30 Alkaline Phosphatase (<127 U/L) 74 Troponin I (< 0.11 ng/ml) 0.15 *H Total Protein (6.3 - 8.2 g/dL) 6.1 L Albumin (3.5 - 5.0 g/dL) 3.7 Globulin (1.9 - 4.2 gm/dL) 2.4 Albumin/Globulin Ratio (1.1 - 2.2 %) 1.5 Coagulation PT (9.4 - 12.5 SEC) 74.5 *H INR (0.90 - 1.19) 6.70 *H APTT (25 - 37 SEC) 68 H Hematology CBC w Diff NO MAN DIFF REQ WBC (4.8 - 10.8 /CUMM) 14.3 H RBC (4.20 - 5.40 /CUMM) 3.23 L Hgb (12.0 - 16.0 G/DL) 10.3 L Hct (37 - 47 %) 30.7 L MCV (81.0 - 99.0 FL) 95.1 MCH (27.0 - 31.0 PG) 31.7 H MCHC (33.0 - 37.0 G/DL) 33.4 RDW (11.5 - 14.5 %) 15.2 H Plt Count (130 - 400 /CUMM) 264 MPV (7.4 - 10.4 FL) 8.6 Gran % (42.2 - 75.2 %) 84.4 H Lymphocytes % (20.5 - 51.1 %) 8.5 L Monocytes % (1.7 - 9.3 %) 6.3 Eosinophils % (0 - 5 %) 0.3 Basophils % (0.0 - 2.0 %) 0.5 Absolute Granulocytes (1.4 - 6.5 /CUMM) 12.1 H Absolute Lymphocytes (1.2 - 3.4 /CUMM) 1.2 Absolute Monocytes (0.10 - 0.60 /CUMM) 0.9 H Absolute Eosinophils (0.0 - 0.7 /CUMM) 0 Absolute Basophils (0.0 - 0.2 /CUMM) 0.1 Assessment/Plan Assessment/Plan Imp: 1. L perinphric/retroperitoneal bleed originating from posterolateral aspect of L kidney in setting of supratherapeutic INR 2. Low urine output and azotemia likely multifactorial. Underlying CKD and episodes of hypotention during bleed Plan: 1. Continue to normalize INR 2. IV fluids and transfuse as needed. I suspect she will need more blood in the next day or 2 as fluids equilibrate 3. follow creatinine 4. f/u cultures 5. In a few weeks will need either CT or MRI of kidneys without and with IV contrast
[2018-02-24 09:10] VITALS: BP 102/58
--- NOTE | 2018-02-24 10:04 | Patient Discharge Instructions ---
Discharge Instructions General Discharge Information You were seen/treated for: Hemorrhagic shock secondary to retroperitoneal bleed Watch for these problems: Fever, chest pain, shortness of breath Special Instructions: Please take medications as directed. Please follow up with primary care, cardiology, and urology. In a few weeks will need either CT or MRI of kidneys without and with IV contrast. Diet Continue normal diet: Yes Activity Full Activity/No Limits: Yes Acute Coronary Syndrome Inclusion Criteria At DC or during hospital stay patient has or had the following: ACS DIAGNOSIS No Discharge Core Measures Meds if any: Prescribed or Continued at Discharge Meds if any: NOT Prescribed or Continued at Discharge Congestive Heart Failure Inclusion Criteria At DC or during hospital stay patient has or had the following: CHF DIAGNOSIS No Discharge Core Measures Meds if any: Prescribed or Continued at Discharge Meds if any: NOT Prescribed or Continued at Discharge Cerebrovascular accident Inclusion Criteria At DC or during hospital stay patient has or had the following: CVA/TIA Diagnosis No Discharge Core Measures Meds if any: Prescribed or Continued at Discharge Meds if any: NOT Prescribed or Continued at Discharge Venous thromboembolism Inclusion Criteria VTE Diagnosis No VTE Type NONE VTE Confirmed by (Test) NONE Discharge Core Measures - Per Current guidelines, there needs to be overlap - treatment for the first 5 days of Warfarin therapy. - If discharged on Warfarin prior to 5 days of - overlap therapy, the patient will need to be - assessed for post discharge needs including - *Post discharge parental anticoagulation - *Warfarin and/or parental anticoagulation education - *Follow up date to check INR post discharge At least 5 days overlap therapy as Inpatient No Meds if any: Prescribed or Continued at Discharge Note: Overlap Therapy is Warfarin and Anticoagulant Meds if any: NOT Prescribed or Continued at Discharge
--- NOTE | 2018-02-24 10:56 | Cons- CRCU ---
General Information and HPI Consulting Request Date of Consult: 02/24/18 Requested By: Dr. kahn Reason for Consult: Hemorrhagic shock secondary to coagulopathy History of Present Illness: Patient is 78-year-old on Coumadin for atrial fibrillation diabetes sleep apnea on CPAP who had a syncopal episode secondary to acute blood loss anemia secondary to retroperitoneal hemorrhage in the setting of coagulopathy. She was volume resuscitated transfused and coagulopathy improved with stabilization of her hemodynamics. She has however developed oligarchic acute renal failure. She has no respiratory symptoms remains comfortable chest x-ray showing no evidence of CHF though her BNP is markedly elevated. Allergies/Medications Allergies: Coded Allergies: NO KNOWN ALLERGIES (06/01/14) Home Med List: Allopurinol 300 MG TABLET 1 TAB PO DAILY GOUT (Reported) Exenatide Microspheres (Bydureon Pen) (Unknown Strength) PEN.INJCTR (Unknown Dose) SC QWED DM (Reported) Furosemide 40 MG TABLET 2 TAB PO QAM DIURETIC (Reported) Gemfibrozil 600 MG TABLET 1 TAB PO BID CHOLESTEROL (Reported) Glipizide (Glipizide ER) 2.5 MG TAB.ER.24 1 TAB PO DAILY DM (Reported) Levothyroxine Sodium 75 MCG TABLET 1 TAB PO DAILY THYROID (Reported) Losartan Potassium 50 MG TABLET 1 TAB PO DAILY BP (Reported) Metformin HCl (Metformin HCl ER) 500 MG TAB.ER.24H 2 TAB PO BID DM (Reported) Potassium Chloride 10 MEQ CAPSULE.ER 1 CAP PO DAILY SUPPLEMENT (Reported) Warfarin Sodium 5 MG TABLET 7.5 MG PO MOWETRFRSASU BLOOD THINNER (Reported) Warfarin Sodium (Coumadin) 10 MG TABLET 1 TAB PO QTUES BLOOD THINNER ( Reported) Review of Systems Review of Systems Constitutional: Denies: chills, fever. Cardiovascular: Denies: chest pain. Respiratory: Reports: cough, hemoptysis, short of breath, wheezing. GI: Reports: abdominal pain. Denies: diarrhea, melena, bloody stool. Genitourinary: Reports: pain. Past History Travel History Traveled to [place] past 21 day No Medical History Blood Transfusion Hx: Yes Neurological: NONE EENT: NONE Cardiovascular: AFIB, hypertension Respiratory: NONE, obstructive sleep apnea Gastrointestinal: NONE Hepatic: NONE Renal: NONE Musculoskeletal: HIP FX Psychiatric: NONE Endocrine: diabetes, hypothyroidism, osteoporosis, vitamin D deficiency Blood Disorders: NONE Cancer(s): NONE, melanoma, (NOSE) [employer]/Reproductive: NONE Surgical History Surgical History: R HIP (5 YRS AGO) REPAIR Family History Relations & Conditions If Any: Relation not specified for: *No pertinent family history Psychosocial History Where Do You Live? Home Services at Home: None Smoking Status: Never Smoked ETOH Use: denies use Illicit Drug Use: denies illicit drug use Exam & Diagnostic Data Last 24 Hrs of Vital Signs/I&O Vital Signs Date Time Temp Pulse Resp B/P B/P Pulse O2 O2 Flow FiO2 Mean Ox Delivery Rate 02/24 910 97.4 90 30 102/58 98 Nasal 2.0L Cannula 02/24 08 98 Room Air 02/24 0353 100 CPAP 2.0L 02/24 0018 100 CPAP 2.0L 02/24 0000 96.2 83 13 80/40 100 CPAP 2.0L 02/24 0000 100 CPAP 2.0L 02/23 2056 93 Nasal 3.0L Cannula 02/23 1904 80 19 116/56 100 02/23 1814 110/53 02/23 1812 99.1 81 29 114/50 100 02/23 1628 100 13 117/56 100 Room Air 02/23 1523 155/67 02/23 1448 73 97/47 100 Room Air 02/23 1425 97.0 72 20 105/52 100 Room Air 02/23 1340 74 16 139/60 100 Room Air 02/23 1338 100 Room Air Intake & Output 02/24 1600 02/24 0800 02/24 0000 Intake Total 1226 2250 Output Total 210 200 Balance 1016 2050 Intake, Blood 694 650 Product Intake, IV 532 1600 Intake, Oral 0 0 Number 3 2 Bowel Movements Output, 150 Emesis Output, Urine 60 200 Patient 216 lb Weight Weight Bed scale Measurement Method Oxygen saturation 2 L 98% exam for chest shows clear lung bustillo cardiac exam shows a regular rate controlled rhythm abdomen is tender. Last 48 Hrs of Labs/Sharan: Laboratory Tests 02/24/18 0903: Lactic Acid 1.8 02/24/18 0600: CBC w Diff Cancelled, WBC Cancelled, RBC Cancelled, Hgb Cancelled, Hct Cancelled , MCV Cancelled, MCH Cancelled, MCHC Cancelled, RDW Cancelled, Plt Count Cancelled, MPV Cancelled 02/24/18 0517: Lactic Acid 3.2 H 02/24/18 0517: Anion Gap 15, Estimated GFR 21 L, Glucose 175 H, Calcium 9.0, Phosphorus 7.2 H, Magnesium 2.7 H, Total Bilirubin 1.1, AST 151 H, ALT 79 H, Troponin I 0.23 *H, Pvs-T-Afhfazrqizj Pept 95589 H, Albumin 3.3 L, PT 34.7 H, INR 3.15 H, CBC w Diff NO MAN DIFF REQ, RBC 2.73 L, MCV 92.5, MCH 31.2 H, MCHC 33.8, RDW 15.6 H, MPV 8.6, Gran % 88.2 H, Lymphocytes % 5.5 L, Monocytes % 6.2, Eosinophils % 0, Basophils % 0.1, Absolute Granulocytes 16.4 H, Absolute Lymphocytes 1.0 L, Absolute Monocytes 1.2 H, Absolute Eosinophils 0, Absolute Basophils 0 02/24/18 0443: Nap-A-Meouzdtwqgz Pept Cancelled 02/24/18 0047: Troponin I 0.23 *H 02/24/18 0047: Lactic Acid 8.8 H 02/23/18 1810: Troponin I 0.19 *H, CBC w Diff NO MAN DIFF REQ, RBC 2.19 L, MCV 94.4, MCH 31.8 H, MCHC 33.7, RDW 15.1 H, MPV 8.5, Gran % 86.2 H, Lymphocytes % 7.3 L, Monocytes % 6.2, Eosinophils % 0, Basophils % 0.3, Absolute Granulocytes 10.9 H , Absolute Lymphocytes 0.9 L, Absolute Monocytes 0.8 H, Absolute Eosinophils 0 , Absolute Basophils 0 02/23/18 1452: Urinalysis LIGHT H, Urine Color YEL, Urine Clarity HAZY H, Urine pH 6.5, Ur Specific [place] 1.010, Urine Protein NEG, Urine Ketones NEG, Urine Nitrite NEG, Urine Bilirubin NEG, Urine Urobilinogen 0.2, Ur Leukocyte Esterase MOD H, Ur Microscopic SEDIMENT EXAMINED, Urine RBC RARE, Urine WBC 5-10 H, Ur Epithelial Cells MANY H, Urine Bacteria FEW H, Urine Mucus RARE, Urine Hemoglobin NEG, Urine Glucose NEG 02/23/18 1403: Anion Gap 14, Estimated GFR 33 L, BUN/Creatinine Ratio 28.7 H, Glucose 254 H, Calcium 9.5, Total Bilirubin 0.6, AST 40 H, ALT 30, Alkaline Phosphatase 74, Troponin I 0.15 *H, Total Protein 6.1 L, Albumin 3.7, Globulin 2.4, Albumin/ Globulin Ratio 1.5, PT 74.5 *H, INR 6.70 *H, APTT 68 H, CBC w Diff NO MAN DIFF REQ, RBC 3.23 L, MCV 95.1, MCH 31.7 H, MCHC 33.4, RDW 15.2 H, MPV 8.6, Gran % 84.4 H, Lymphocytes % 8.5 L, Monocytes % 6.3, Eosinophils % 0.3, Basophils % 0.5, Absolute Granulocytes 12.1 H, Absolute Lymphocytes 1.2, Absolute Monocytes 0.9 H, Absolute Eosinophils 0, Absolute Basophils 0.1 Assessment/Plan CRCU Impression/Plan: 78-year-old with history of atrial fibrillation on Coumadin presents with acute hemorrhagic shock secondary to retroperitoneal bleed in the setting of coagulopathy. She is clinically improved status post transfusion fresh frozen plasma and vitamin K and volume resuscitation. She remains oliguric likely secondary to ATN in the setting of hypotension diuretics and lisinopril. Recommendations: Cardiac ultrasound in view of abnormal troponin and elevated BMP. Renal evaluation for acute kidney injury. Continue IV fluids closely monitoring her physical exam for signs of congestive heart failure Continue serial CBCs and INR every 8 hours. If hematocrit falls further would transfuse in view of positive troponins. Continue nocturnal CPAP for sleep apnea. Consult Acknowledgment - Thank you for your consult request.
--- NOTE | 2018-02-24 13:03 | ECHOCARDIOGRAM REPORT ---
JAKE MCCANN Age: 78 : 1940 Gender: F Exam Date: 02/24/2018 10:50 Exam Location: [facility] Ht (in): 67 Wt (lb): 216 BSA: 2.19 BP: 102 / Ordering Physician: Rhonda Bear MD Referring Physician: Phillip Corley MD Technologist: Heike Topete [facility] Room Number: 109 Indications: CHEST PAIN Rhythm: Sinus Technical Quality: Fair FINDINGS Left Ventricle Normal size left ventricle. No obvious regional wall motion abnormalities. Normal left ventricular ejection fraction estimated at 60-65%. Right Ventricle Right ventricle at upper limits of normal. Right Atrium Mild right atrial dilatation. Left Atrium Mild to moderate left atrial dilatation. Mitral Valve Mitral valve thickened. Mitral annular calcification. Mild mitral regurgitation. Aortic Valve Trileaflet aortic valve. Diffuse thickening (sclerosis) of the aortic valve cusps without reduced excursion. No aortic stenosis. No aortic regurgitation. Tricuspid Valve Tricuspid valve not well visualized, grossly normal. Mild tricuspid regurgitation. Tricuspid regurgitation jet directed toward the septum. Right ventricular systolic pressure estimated to be elevated at 50 mmHg. Pulmonic Valve Structurally normal pulmonic valve. Trace to mild pulmonic regurgitation. Pericardium No pericardial effusion. Great Vessels Normal size aortic root and proximal ascending aorta. CONCLUSIONS 1. Moderate aortic sclerosis is present with no valvular stenosis or insufficiency 2. Mitral leaflet thickening is present with anular calcification and mild mitral insufficiency with mild to moderate left atrial enlargement. 3. There is no significant pericardial fluid present. 4. The left ventricular chamber size and systolic function appear normal. 5. Mild tricuspid insufficiency is present with right atrial enlargement, minimal to mild pulmonic insufficiency and pulmonary hypertension with an estimated RV systolic pressure of 60 mmHg. 6. Lipomatous hypertrophy of the interatrial septum is present. Phillip Corley M.D. (Electronically Signed) Final Date: 24 February 2018 13:02 MEASUREMENTS (Male / Female) Normal Values 2D ECHO LV Diastolic Diameter PLAX 3.7 cm 4.2 - 5.9 / 3.9 - 5.3 cm LV Systolic Diameter PLAX 2.2 cm 2.1 - 4.0 cm LV Fractional Shortening PLAX 40.5 % 25 - 46 % LV Ejection Fraction 2D Teich 72.1 % IVS Diastolic Thickness 1.3 cm LVPW Diastolic Thickness 1.3 cm LV Relative Wall Thickness 0.7 RV Internal Dim ED PLAX 2.6 cm 1.9 - 3.8 cm LVOT Diameter 2.0 cm Aortic Root Diameter 2.8 cm LA Systolic Diameter LX 5.3 cm 3.0 - 4.0 / 2.7 - 3.8 cm LA Volume 53.0 cm 18 - 58 / 22 - 52 cm Ascending Aorta Diameter 3.1 cm DOPPLER AV Peak Velocity 235.0 cm/s AV Peak Gradient 22.1 mmHg AV Mean Velocity 170.0 cm/s AV Mean Gradient 13.0 mmHg AV Velocity Time Integral 41.8 cm LVOT Peak Velocity 131.0 cm/s LVOT Peak Gradient 6.9 mmHg LVOT Mean Velocity 87.5 cm/s LVOT Mean Gradient 4.0 mmHg LVOT Velocity Time Integral 23.5 cm LVOT Stroke Volume 73.8 cm AV Area Cont Eq vti 1.8 cm AV Area Cont Eq pk 1.8 cm MV Peak Velocity 139.0 cm/s MV Peak Gradient 7.7 mmHg MV Mean Velocity 65.2 cm/s MV Mean Gradient 2.0 mmHg Mitral E Point Velocity 118.0 cm/s MV PHT Velocity 142.0 cm/s MV Deceleration Flat[place] 810.0 cm/s MV Pressure Half Time 52.6 ms MV Area PHT 4.2 cm MV Deceleration Time 232.0 ms TR Peak Velocity 377.0 cm/s TR Peak Gradient 56.9 mmHg Right Atrial Pressure 5.0 mmHg Pulmonary Artery Systolic Pressu 61.9 mmHg Right Ventricular Systolic Press 61.9 mmHg PV Peak Velocity 135.0 cm/s PV Peak Gradient 7.3 mmHg PV Mean Velocity 86.9 cm/s PV Mean Gradient 4.0 mmHg PV Velocity Time Integral 19.2 cm LV E' Lateral Velocity 9.5 cm/s Mitral E to LV E' Lateral Ratio 12.5 LV E' Septal Velocity 8.6 cm/s Mitral E to LV E' Septal Ratio 13.8
--- NOTE | 2018-02-24 13:07 | Cons- Nephrology ---
General Information and HPI Consulting Request Date of Consult: 02/24/18 Requested By: Kisha TERRY,Samantha Reason for Consult: MONSERRAT Source of Information: patient, old records Exam Limitations: no limitations History of Present Illness: 78 yr old female w mut med problems including DM, HTN, & A fib admit yesterday after developing L flank pain & syncope. Found hypotensive w L perirenal bleed in setting over warfarin related coagulopathy. Required volume resuscitation, transfusion prbcs & FFP, & Vit K, but oliguric w rising Cr from baseline 1.0 earlier this yr to 2.2. On outpt metformin, ARB, & Lasix w/o documented IV contrast or NSAIDs. Course complicated by lactic acidosis now improved. Denies hx stones or UTI. Allergies/Medications Allergies: Coded Allergies: NO KNOWN ALLERGIES (06/01/14) Home Med List: Allopurinol 300 MG TABLET 1 TAB PO DAILY GOUT (Reported) Exenatide Microspheres (Bydureon Pen) (Unknown Strength) PEN.INJCTR (Unknown Dose) SC QWED DM (Reported) Furosemide 40 MG TABLET 2 TAB PO QAM DIURETIC (Reported) Gemfibrozil 600 MG TABLET 1 TAB PO BID CHOLESTEROL (Reported) Glipizide (Glipizide ER) 2.5 MG TAB.ER.24 1 TAB PO DAILY DM (Reported) Levothyroxine Sodium 75 MCG TABLET 1 TAB PO DAILY THYROID (Reported) Losartan Potassium 50 MG TABLET 1 TAB PO DAILY BP (Reported) Metformin HCl (Metformin HCl ER) 500 MG TAB.ER.24H 2 TAB PO BID DM (Reported) Potassium Chloride 10 MEQ CAPSULE.ER 1 CAP PO DAILY SUPPLEMENT (Reported) Warfarin Sodium 5 MG TABLET 7.5 MG PO MOWETRFRSASU BLOOD THINNER (Reported) Warfarin Sodium (Coumadin) 10 MG TABLET 1 TAB PO QTUES BLOOD THINNER ( Reported) Current Medications: Current Medications Sig/Mauro Start time Last Medication Dose Route Stop Time Status Admin Acetaminophen 650 MG Q6P PRN 02/23 1915 DC PO Acetaminophen 1,000 MG Q6P PRN 02/23 191 DC 02/24 IV 0157 Acetaminophen 1,000 MG ONCE ONE 02/23 1415 DC 02/23 N/A 1 UNIT IV 02/23 1429 1405 Acetaminophen 0 .STK-MED ONE 02/23 1410 DC IV Dextrose/Sodium 1,000 ML Q13H 02/23 1930 DC Chloride IV 02/24 2129 Furosemide 20 MG ONCE ONE 02/24 0645 DC 02/24 IV 02/24 0646 0639 Hydromorphone HCl 0.2 MG Q4P PRN 02/24 1045 AC 02/24 IV 1149 Hydromorphone HCl 0.5 MG ONCE ONE 02/24 0630 DC 02/24 IV 02/24 0631 0628 Hydromorphone HCl 0.5 MG ONCE ONE 02/24 0345 DC 02/24 IV 02/24 0346 0334 Hydromorphone HCl 0 .STK-MED ONE 02/23 1606 DC .ROUTE Hydromorphone HCl 0.5 MG ONCE ONE 02/23 1600 DC 02/23 IV 02/23 1601 1600 Insulin Aspart 0 TIDAC 02/24 0800 CAN SC Insulin Human Regular 0 Q6 02/23 2359 AC 02/24 SC 1225 Levothyroxine Sodium 0.075 MG DAILY 02/24 1131 AC 02/24 PO 1225 Morphine Sulfate 0 .STK-MED ONE 02/23 1536 DC .ROUTE Morphine Sulfate 2 MG ONCE ONE 02/23 1530 DC 02/23 IV 02/23 1531 1531 Morphine Sulfate 2 MG ONCE ONE 02/23 1445 DC 02/23 IV 02/23 1446 1438 Morphine Sulfate 0 .STK-MED ONE 02/23 1441 DC .ROUTE Morphine Sulfate 2 MG ONCE ONE 02/23 1400 CAN IV 02/23 1401 Ondansetron HCl 4 MG Q6P PRN 02/24 1045 AC 02/24 IV 1149 Ondansetron HCl 0 .STK-MED ONE 02/23 1407 DC .ROUTE Ondansetron HCl 4 MG ONCE ONE 02/23 1400 DC 02/23 IV 02/23 1401 1405 Phytonadione 10 MG DAILY 02/23 1744 AC 02/24 PO 02/25 0901 0942 Sodium Chloride 500 ML BOLUS ONE 02/24 1045 DC 02/24 IV 02/24 1144 1049 Sodium Chloride 250 ML BOLUS ONE 02/24 0445 CAN IV 02/24 0624 Sodium Chloride 500 ML BOLUS ONE 02/23 2015 DC 02/23 IV 02/23 2114 2021 Sodium Chloride 1,000 ML Q10H 02/23 2000 AC 02/24 IV 02/24 1359 0610 Sodium Chloride 500 ML BOLUS ONE 02/23 1745 DC / IV 02/23 1844 1754 Sodium Chloride 1,000 ML ONCE ONE 02/23 1415 DC / IV 02/23 2214 1430 Sodium Chloride 1,000 ML BOLUS ONE 02/23 1400 DC / IV 02/23 1459 1409 Tramadol HCl 50 MG Q6 02/24 1200 CAN PO Tramadol HCl 50 MG Q4 PRN 02/23 1915 DC 02/24 PO 0902 Trimethobenzamide HCl 200 MG ONCE ONE 02/23 2345 DC 02/23 IM 02/23 2346 2352 Review of Systems Review of Systems Constitutional: Reports: malaise. EENTM: Reports: no symptoms. Cardiovascular: Reports: no symptoms. Respiratory: Reports: no symptoms. GI: Reports: no symptoms. Genitourinary: Reports: see HPI. Musculoskeletal: Reports: no symptoms. Skin: Reports: no symptoms. Neurological/Psychological: Reports: no symptoms. Hematologic/Endocrine: Reports: bruising. Immunologic/Allergic: Reports: no symptoms. All Other Systems: Reviewed and Negative Past History Travel History Traveled to [place] past 21 day No Medical History Blood Transfusion Hx: Yes Neurological: NONE EENT: NONE Cardiovascular: AFIB, hypertension Respiratory: NONE, obstructive sleep apnea Gastrointestinal: NONE Hepatic: NONE Renal: NONE Musculoskeletal: HIP FX Psychiatric: NONE Endocrine: diabetes, hypothyroidism, osteoporosis, vitamin D deficiency Blood Disorders: NONE Cancer(s): NONE, melanoma, (NOSE) [employer]/Reproductive: NONE Surgical History Surgical History: R HIP (5 YRS AGO) REPAIR Family History Relations & Conditions If Any: FH: hypertension Relation not specified FHx: diabetes mellitus Relation not specified Psychosocial History Where Do You Live? Home Services at Home: None Smoking Status: Never Smoked ETOH Use: denies use Illicit Drug Use: denies illicit drug use Exam & Diagnostic Data Vital Signs and I&O Vital Signs Date Time Temp Pulse Resp B/P B/P Pulse O2 O2 Flow FiO2 Mean Ox Delivery Rate 02/24 1200 98 Room Air 02/24 0910 97.4 90 30 102/58 98 Nasal 2.0L Cannula 02/24 0800 98 Room Air 02/24 0353 100 CPAP 2.0L 02/24 0018 100 CPAP 2.0L 02/24 0000 96.2 83 13 80/40 100 CPAP 2.0L 06/10 0000 100 CPAP 2.0L 02/24 2056 93 Nasal 3.0L Cannula 02/23 1904 80 19 116/56 100 02/23 1814 110/53 02/23 181 99.1 81 29 114/50 100 02/23 1628 100 13 117/56 100 Room Air 02/23 1523 155/67 02/23 1448 73 97/47 100 Room Air 02/23 1425 97.0 72 20 105/52 100 Room Air 02/23 1340 74 16 139/60 100 Room Air 02/23 1338 100 Room Air Intake & Output 02/24 0400 02/23 1600 02/23 0400 02/22 1600 02/22 0400 Intake Total 1226 2250 1000 Output Total 210 200 Balance 1016 2049 1000 Intake, Blood 694 650 Product Intake, IV 532 1600 1000 Intake, Oral 0 0 Number 3 2 Bowel Movements Output, 150 Emesis Output, Urine 60 200 Patient 216 lb 167 lb Weight Weight Bed scale Reported by Patient Measurement Method Physical Exam General Appearance: well developed/nourished, no apparent distress, alert Head: atraumatic, normal appearance Eyes: Bilateral: normal appearance. Ears, Nose, Throat: normal ENT inspection Neck: normal inspection Respiratory: normal breath sounds, no respiratory distress, quiet respiration, lungs clear Cardiovascular: friction rub (none), irregularly irregular Gastrointestinal: soft, no organomegaly, tender LUQ & flank Back: normal inspection Extremities: no edema Neurologic/Psych: no motor/sensory deficits, awake, alert, clinical research tech II-XII nml as tested Skin: ecchymosis Lymphatic: no anterior cervical ambar, no axil Results Pertinent Lab Results: Laboratory Tests 02/24 02/24 02/24 02/24 1300 0903 0600 0517 Chemistry Potassium (3.5 - 5.1 mmol/L) 5.2 H Lactic Acid (0.7 - 2.1 mmol/L) 1.8 3.2 H Magnesium Cancelled Hematology CBC w Diff Cancelled Cancelled WBC Cancelled Cancelled RBC Cancelled Cancelled Hgb Cancelled Cancelled Hct Cancelled Cancelled MCV Cancelled Cancelled MCH Cancelled Cancelled MCHC Cancelled Cancelled RDW Cancelled Cancelled Plt Count Cancelled Cancelled MPV Cancelled Cancelled 02/24 02/24 02/24 0517 0443 0047 Chemistry Sodium (137 - 145 mmol/L) 137 Potassium (3.5 - 5.1 mmol/L) 5.2 H Chloride (98 - 107 mmol/L) 103 Carbon Dioxide (22 - 30 mmol/L) 19 L Anion Gap (5 - 16) 15 BUN (7 - 17 mg/dL) 52 H Creatinine (0.5 - 1.0 mg/dL) 2.2 H Estimated GFR (>60 ml/min) 21 L Glucose (65 - 99 mg/dL) 175 H Calcium (8.4 - 10.2 mg/dL) 9.0 Phosphorus (2.5 - 4.5 mg/dL) 7.2 H Magnesium (1.6 - 2.3 mg/dL) 2.7 H Total Bilirubin (0.2 - 1.3 mg/dL) 1.1 AST (14 - 36 U/L) 151 H ALT (9 - 52 U/L) 79 H Troponin I (< 0.11 ng/ml) 0.23 *H 0.23 *H [id number] Pept (<125 pg/mL) 42731 H Cancelled Albumin (3.5 - 5.0 g/dL) 3.3 L Coagulation PT (9.4 - 12.5 SEC) 34.7 H INR (0.90 - 1.19) 3.15 H Hematology CBC w Diff NO MAN DIFF REQ WBC (4.8 - 10.8 /CUMM) 18.6 H RBC (4.20 - 5.40 /CUMM) 2.73 L Hgb (12.0 - 16.0 G/DL) 8.5 L Hct (37 - 47 %) 25.3 L MCV (81.0 - 99.0 FL) 92.5 MCH (27.0 - 31.0 PG) 31.2 H MCHC (33.0 - 37.0 G/DL) 33.8 RDW (11.5 - 14.5 %) 15.6 H Plt Count (130 - 400 /CUMM) 198 MPV (7.4 - 10.4 FL) 8.6 Gran % (42.2 - 75.2 %) 88.2 H Lymphocytes % (20.5 - 51.1 %) 5.5 L Monocytes % (1.7 - 9.3 %) 6.2 Eosinophils % (0 - 5 %) 0 Basophils % (0.0 - 2.0 %) 0.1 Absolute Granulocytes (1.4 - 6.5 /CUMM) 16.4 H Absolute Lymphocytes (1.2 - 3.4 /CUMM) 1.0 L Absolute Monocytes (0.10 - 0.60 /CUMM) 1.2 H Absolute Eosinophils (0.0 - 0.7 /CUMM) 0 Absolute Basophils (0.0 - 0.2 /CUMM) 0 02/24 02/23 0047 1810 Chemistry Lactic Acid (0.7 - 2.1 mmol/L) 8.8 H Troponin I (< 0.11 ng/ml) 0.19 *H Hematology CBC w Diff NO MAN DIFF REQ WBC (4.8 - 10.8 /CUMM) 12.7 H RBC (4.20 - 5.40 /CUMM) 2.19 L Hgb (12.0 - 16.0 G/DL) 7.0 *L Hct (37 - 47 %) 20.7 L MCV (81.0 - 99.0 FL) 94.4 MCH (27.0 - 31.0 PG) 31.8 H MCHC (33.0 - 37.0 G/DL) 33.7 RDW (11.5 - 14.5 %) 15.1 H Plt Count (130 - 400 /CUMM) 266 MPV (7.4 - 10.4 FL) 8.5 Gran % (42.2 - 75.2 %) 86.2 H Lymphocytes % (20.5 - 51.1 %) 7.3 L Monocytes % (1.7 - 9.3 %) 6.2 Eosinophils % (0 - 5 %) 0 Basophils % (0.0 - 2.0 %) 0.3 Absolute Granulocytes (1.4 - 6.5 /CUMM) 10.9 H Absolute Lymphocytes (1.2 - 3.4 /CUMM) 0.9 L Absolute Monocytes (0.10 - 0.60 /CUMM) 0.8 H Absolute Eosinophils (0.0 - 0.7 /CUMM) 0 Absolute Basophils (0.0 - 0.2 /CUMM) 0 02/23 02/23 1452 1403 Chemistry Sodium (137 - 145 mmol/L) 135 L Potassium (3.5 - 5.1 mmol/L) 4.0 Chloride (98 - 107 mmol/L) 100 Carbon Dioxide (22 - 30 mmol/L) 21 L Anion Gap (5 - 16) 14 BUN (7 - 17 mg/dL) 43 H Creatinine (0.5 - 1.0 mg/dL) 1.5 H Estimated GFR (>60 ml/min) 33 L BUN/Creatinine Ratio (7 - 25 %) 28.7 H Glucose (65 - 99 mg/dL) 254 H Calcium (8.4 - 10.2 mg/dL) 9.5 Total Bilirubin (0.2 - 1.3 mg/dL) 0.6 AST (14 - 36 U/L) 40 H ALT (9 - 52 U/L) 30 Alkaline Phosphatase (<127 U/L) 74 Troponin I (< 0.11 ng/ml) 0.15 *H Total Protein (6.3 - 8.2 g/dL) 6.1 L Albumin (3.5 - 5.0 g/dL) 3.7 Globulin (1.9 - 4.2 gm/dL) 2.4 Albumin/Globulin Ratio (1.1 - 2.2 %) 1.5 Coagulation PT (9.4 - 12.5 SEC) 74.5 *H INR (0.90 - 1.19) 6.70 *H APTT (25 - 37 SEC) 68 H Hematology CBC w Diff NO MAN DIFF REQ WBC (4.8 - 10.8 /CUMM) 14.3 H RBC (4.20 - 5.40 /CUMM) 3.23 L Hgb (12.0 - 16.0 G/DL) 10.3 L Hct (37 - 47 %) 30.7 L MCV (81.0 - 99.0 FL) 95.1 MCH (27.0 - 31.0 PG) 31.7 H MCHC (33.0 - 37.0 G/DL) 33.4 RDW (11.5 - 14.5 %) 15.2 H Plt Count (130 - 400 /CUMM) 264 MPV (7.4 - 10.4 FL) 8.6 Gran % (42.2 - 75.2 %) 84.4 H Lymphocytes % (20.5 - 51.1 %) 8.5 L Monocytes % (1.7 - 9.3 %) 6.3 Eosinophils % (0 - 5 %) 0.3 Basophils % (0.0 - 2.0 %) 0.5 Absolute Granulocytes (1.4 - 6.5 /CUMM) 12.1 H Absolute Lymphocytes (1.2 - 3.4 /CUMM) 1.2 Absolute Monocytes (0.10 - 0.60 /CUMM) 0.9 H Absolute Eosinophils (0.0 - 0.7 /CUMM) 0 Absolute Basophils (0.0 - 0.2 /CUMM) 0.1 Urines Urinalysis LIGHT H Urine Color (YEL,AMB,STR) YEL Urine Clarity (CLEAR) HAZY H Urine pH (5.0 - 8.0) 6.5 Ur Specific [place] (1.001 - 1.035) 1.010 Urine Protein (NEG,<30 MG/DL) NEG Urine Ketones (NEG) NEG Urine Nitrite (NEG) NEG Urine Bilirubin (NEG) NEG Urine Urobilinogen (0.1 - 1.0 EU/dl) 0.2 Ur Leukocyte Esterase (NEG) MOD H Ur Microscopic SEDIMENT EXAMINED Urine RBC (0 - 5 /HPF) RARE Urine WBC (0 - 2 /HPF) 5-10 H Ur Epithelial Cells (NONE,FEW) MANY H Urine Bacteria (NEG/NONE) FEW H Urine Mucus (FEW,NONE) RARE Urine Hemoglobin (NEG) NEG Urine Glucose (N MG/DL) NEG Imaging/Other Studies: CT: KIDNEYS AND URETERS: There is heterogeneous material within and abutting the left kidney as well as extending within the left perinephric space. Favor a component of this heterogeneous material represents blood product. Local left perinephric stranding is demonstrated. There is either a heterogeneous fluid collection or mass arising from the posterior aspect of the left mid to lower kidney, measuring approximately 7.1 x 5.0 cm transaxially on image 36/98. Other seemingly loculated/organized fluid tracks along the posterior left pararenal space into the pelvis. No hydronephrosis. No renal or ureteral calculi. CXR: There are small lung volumes. There is some scarring noted within the left lung. No definite acute parenchymal disease is identified. No pneumothorax or significant pleural effusion. The cardiopericardial silhouette appears mildly enlarged. No evidence of pulmonary edema. Old healed right rib fractures present. Assessment/Plan Assessment/Recommendations Assessment: 1. MONSERRAT: likely ATN related majoor hemodynamic insult; doubt still prerenal. No renal replacement indication. Need to avoid volume overload. 2. Met acid: lactic acidosis improved; prob has component renal failure associated met acidosis -> if worsens can add po Na bicarb. Recommendations: 1. Lower IV NS 50 ml/hr 2. Once taking po can stop IV 3. Two gram K diet retsriction 4. If bicarb fall lower --> add Na bicarb 1300 mg bid 5. Serial chemistries 6. No RAAS interruption; no metformin
[2018-02-24 13:56] LABS: ABSOLUTE BASOPHIL COUNT 0 /CUMM (0.0-0.2); ABSOLUTE EOSINOPHIL COUNT 0 /CUMM (0.0-0.7); ABSOLUTE GRANULOCYTE CT 13.1 /CUMM (1.4-6.5); ABSOLUTE MONOCYTE COUNT 1.2 /CUMM (0.10-0.60); BASOPHIL % 0 % (0.0-2.0); EOSINOPHIL % 0.1 % (0-5); GRANULOCYTE % 85.7 % (42.2-75.2); HEMATOCRIT 20.5 % (37-47); MEAN CORPUSCULAR HGB 31.4 PG (27.0-31.0); MEAN CORPUSCULAR VOLUME 92.5 FL (81.0-99.0); MEAN PLATELET VOLUME 8.8 FL (7.4-10.4); PLATELET COUNT 193 /CUMM (130-400); RBC DISTRIBUTION WIDTH 16.3 % (11.5-14.5); RED BLOOD CELL CT 2.22 /CUMM (4.20-5.40); WHITE BLOOD CELL COUNT 15.3 /CUMM (4.8-10.8)
--- NOTE | 2018-02-24 15:05 | PN- Cardiology ---
Subjective Subjective: More conversant. Complains of intermittent abdominal pain, but improved from yesterday. Objective Vital Signs and I&Os Vital Signs Date Time Temp Pulse Resp B/P B/P Pulse O2 O2 Flow FiO2 Mean Ox Delivery Rate 02/24 1200 98 Room Air 02/24 0910 97.4 90 30 102/58 98 Nasal 2.0L Cannula 02/24 0800 98 Room Air 02/24 0353 100 CPAP 2.0L 02/24 0018 100 CPAP 2.0L 02/24 0000 96.2 83 13 80/40 100 CPAP 2.0L 02/24 0000 100 CPAP 2.0L 02/23 2056 93 Nasal 3.0L Cannula 02/23 1904 80 19 116/56 100 02/23 1814 110/53 02/23 1812 99.1 81 29 114/50 100 02/23 1628 100 13 117/56 100 Room Air 02/23 1523 155/67 Intake & Output 02/24 1600 02/24 0800 02/24 0000 02/23 1600 02/23 0800 02/23 0000 Intake Total 1195 1226 2250 1000 Output Total 20 210 200 Balance 1175 1016 2050 1000 Intake, Blood 694 650 Product Intake, IV 8086 615 9928 1000 Intake, Oral 150 0 0 Number 2 3 2 Bowel Movements Output, 150 Emesis Output, Urine 20 60 200 Patient 216 lb 167 lb Weight Weight Bed scale Reported by Patient Measurement Method Physical Exam: Pale appearing elderly female in mild distress with nasal O2 in place. Vital signs: See above. HEENT: Normocephalic, atraumatic, EOMI, slightly dry mucous membranes. Neck: No JVD, no bruits. Lungs: Clear to auscultation anteriorly. Heart: S1, S2 with grade 1-2/6 systolic murmur best heard near the base. No gallop or rub. Abdomen: Soft, nontender, positive bowel sounds. Extremities: No edema. Results Last 48 Hrs of Labs/Mics: Laboratory Tests 02/24/18 1330: Troponin I Cancelled 02/24/18 1330: Anion Gap 13, Estimated GFR 18 L, Glucose 140 H, Calcium 8.3 L, Phosphorus 6.7 H, Magnesium 2.8 H, Total Bilirubin 0.6, AST 147 H, ALT 74 H, Troponin I 0.23 *H, Albumin 3.0 L, CBC w Diff NO MAN DIFF REQ, RBC 2.22 L, MCV 92.5, MCH 31.4 H, MCHC 34.0, RDW 16.3 H, MPV 8.8, Gran % 85.7 H, Lymphocytes % 6.3 L, Monocytes % 7.9, Eosinophils % 0.1, Basophils % 0, Absolute Granulocytes 13.1 H , Absolute Lymphocytes 1.0 L, Absolute Monocytes 1.2 H, Absolute Eosinophils 0 , Absolute Basophils 0 02/24/18 1300: Magnesium Cancelled, CBC w Diff Cancelled, WBC Cancelled, RBC Cancelled, Hgb Cancelled, Hct Cancelled, MCV Cancelled, MCH Cancelled, MCHC Cancelled, RDW Cancelled, Plt Count Cancelled, MPV Cancelled 02/24/18 0903: Lactic Acid 1.8 02/24/18 0600: CBC w Diff Cancelled, WBC Cancelled, RBC Cancelled, Hgb Cancelled, Hct Cancelled , MCV Cancelled, MCH Cancelled, MCHC Cancelled, RDW Cancelled, Plt Count Cancelled, MPV Cancelled 02/24/18 0517: Lactic Acid 3.2 H 02/24/18 0517: Anion Gap 15, Estimated GFR 21 L, Glucose 175 H, Calcium 9.0, Phosphorus 7.2 H, Magnesium 2.7 H, Total Bilirubin 1.1, AST 151 H, ALT 79 H, Troponin I 0.23 *H, Kih-P-Gtdaozbjqdf Pept 78250 H, Albumin 3.3 L, PT 34.7 H, INR 3.15 H, CBC w Diff NO MAN DIFF REQ, RBC 2.73 L, MCV 92.5, MCH 31.2 H, MCHC 33.8, RDW 15.6 H, MPV 8.6, Gran % 88.2 H, Lymphocytes % 5.5 L, Monocytes % 6.2, Eosinophils % 0, Basophils % 0.1, Absolute Granulocytes 16.4 H, Absolute Lymphocytes 1.0 L, Absolute Monocytes 1.2 H, Absolute Eosinophils 0, Absolute Basophils 0 02/24/18 0443: Fnw-T-Ydvbenrhjqe Pept Cancelled 02/24/18 0047: Troponin I 0.23 *H 02/24/18 0047: Lactic Acid 8.8 H 02/23/18 1810: Troponin I 0.19 *H, CBC w Diff NO MAN DIFF REQ, RBC 2.19 L, MCV 94.4, MCH 31.8 H, MCHC 33.7, RDW 15.1 H, MPV 8.5, Gran % 86.2 H, Lymphocytes % 7.3 L, Monocytes % 6.2, Eosinophils % 0, Basophils % 0.3, Absolute Granulocytes 10.9 H , Absolute Lymphocytes 0.9 L, Absolute Monocytes 0.8 H, Absolute Eosinophils 0 , Absolute Basophils 0 02/23/18 1452: Urinalysis LIGHT H, Urine Color YEL, Urine Clarity HAZY H, Urine pH 6.5, Ur Specific David 1.010, Urine Protein NEG, Urine Ketones NEG, Urine Nitrite NEG, Urine Bilirubin NEG, Urine Urobilinogen 0.2, Ur Leukocyte Esterase MOD H, Ur Microscopic SEDIMENT EXAMINED, Urine RBC RARE, Urine WBC 5-10 H, Ur Epithelial Cells MANY H, Urine Bacteria FEW H, Urine Mucus RARE, Urine Hemoglobin NEG, Urine Glucose NEG 02/23/18 1403: Anion Gap 14, Estimated GFR 33 L, BUN/Creatinine Ratio 28.7 H, Glucose 254 H, Calcium 9.5, Total Bilirubin 0.6, AST 40 H, ALT 30, Alkaline Phosphatase 74, Troponin I 0.15 *H, Total Protein 6.1 L, Albumin 3.7, Globulin 2.4, Albumin/ Globulin Ratio 1.5, PT 74.5 *H, INR 6.70 *H, APTT 68 H, CBC w Diff NO MAN DIFF REQ, RBC 3.23 L, MCV 95.1, MCH 31.7 H, MCHC 33.4, RDW 15.2 H, MPV 8.6, Gran % 84.4 H, Lymphocytes % 8.5 L, Monocytes % 6.3, Eosinophils % 0.3, Basophils % 0.5, Absolute Granulocytes 12.1 H, Absolute Lymphocytes 1.2, Absolute Monocytes 0.9 H, Absolute Eosinophils 0, Absolute Basophils 0.1 Microbiology 02/24 0047 STOOL: Clostridium difficile Toxin A & B - COMP Recent Imaging Studies: Echocardiogram 02/24/2018: 1. Moderate aortic sclerosis is present with no valvular stenosis or insufficiency 2. Mitral leaflet thickening is present with anular calcification and mild mitral insufficiency with mild to moderate left atrial enlargement. 3. There is no significant pericardial fluid present. 4. The left ventricular chamber size and systolic function appear normal. 5. Mild tricuspid insufficiency is present with right atrial enlargement, minimal to mild pulmonic insufficiency and pulmonary hypertension with an estimated RV systolic pressure of 60 mmHg. 6. Lipomatous hypertrophy of the interatrial septum is present. CXR 02/24/2018: No acute cardiopulmonary process. Assessment/Plan Assessment/Plan [id number] w/ hx HTN, HLD, DM, GERSON on CPAP, pul nodules, ch bilat LE edema, & perm AF on warfarin AC who presented to the ED following a witnessed syncopal episode w/ subsequent c/o L flank pain & who was discovered to be pale, markedly anemic (hemoglobin 7.0 g/dl), w/ a supratherapeutic (INR 6.7), w/ acute renal failure, and a positive troponin I (0.19 ng/ml) w/ a CT of the abd/pelvis suspicious for a retroperitoneal hematoma. Hemorrhagic shock 2/2 L perirenal bleed on AC w/ supratherapeutic INR. Hemodynamically improved with volume resuscitation, transfusion pRBCs, FFP, & vit K, but was oliguric and now is anuric w/ worsening BUN/creatinine 2/2 suspected ATN. Fortunately, her echocardiogram from earlier reveals preserved left ventricular function and although she has an elevated NT-PRO BNP she has no clinical or radiographic evidence of heart failure at this time. Recommendations: * Continue ICU admission. * Continue to hold anticoagulation, diuretic, potassium supplements, & angiotensin receptor mi for the short-term. * Maintain Hgb at or above 8.0 g/dl and frequent follow-up labs. * Obtain CXR in a.m. * Mechanical DVT prophylaxis. Continue telemetry? Not applicable (In ICU.)
[2018-02-24 16:00] VITALS: BP 120/52
[2018-02-24 22:42] LABS: ABSOLUTE BASOPHIL COUNT 0 /CUMM (0.0-0.2); ABSOLUTE EOSINOPHIL COUNT 0 /CUMM (0.0-0.7); ABSOLUTE LYMPH COUNT 0.7 /CUMM (1.2-3.4); ABSOLUTE MONOCYTE COUNT 1.3 /CUMM (0.10-0.60); BASOPHIL % 0 % (0.0-2.0); EOSINOPHIL % 0.1 % (0-5); GRANULOCYTE % 87.2 % (42.2-75.2); HEMATOCRIT 24.9 % (37-47); MEAN CORPUSCULAR HGB 30.4 PG (27.0-31.0); MEAN CORPUSCULAR HGB CONC 33.7 G/DL (33.0-37.0); MEAN CORPUSCULAR VOLUME 90.3 FL (81.0-99.0); MEAN PLATELET VOLUME 8.5 FL (7.4-10.4); PLATELET COUNT 165 /CUMM (130-400); RBC DISTRIBUTION WIDTH 15.6 % (11.5-14.5); RED BLOOD CELL CT 2.76 /CUMM (4.20-5.40)
[2018-02-24 22:47] LABS: PT 18.5 SEC (9.4-12.5)
[2018-02-25] VITALS: BP 154/59
[2018-02-25 05:21] LABS: ABSOLUTE BASOPHIL COUNT 0 /CUMM (0.0-0.2); ABSOLUTE EOSINOPHIL COUNT 0 /CUMM (0.0-0.7); ABSOLUTE GRANULOCYTE CT 16.2 /CUMM (1.4-6.5); ABSOLUTE LYMPH COUNT 0.8 /CUMM (1.2-3.4); ABSOLUTE MONOCYTE COUNT 1.6 /CUMM (0.10-0.60); BASOPHIL % 0 % (0.0-2.0); EOSINOPHIL % 0 % (0-5); GRANULOCYTE % 86.9 % (42.2-75.2); HEMATOCRIT 23.4 % (37-47); MEAN CORPUSCULAR HGB 30.7 PG (27.0-31.0); MEAN CORPUSCULAR HGB CONC 33.7 G/DL (33.0-37.0); MEAN PLATELET VOLUME 9.1 FL (7.4-10.4); PLATELET COUNT 188 /CUMM (130-400); RBC DISTRIBUTION WIDTH 16.4 % (11.5-14.5); RED BLOOD CELL CT 2.57 /CUMM (4.20-5.40); WHITE BLOOD CELL COUNT 18.7 /CUMM (4.8-10.8)
[2018-02-25 05:25] LABS: PT 17.7 SEC (9.4-12.5)
--- NOTE | 2018-02-25 07:45 | PN- Urology ---
Subjective Subjective: No acute distress. Complains of L flank pain when pain meds wear off. Hemodynamically stable. Continuing to require blood transfusions Objective Vital Signs and I&Os Vital Signs Date Time Temp Pulse Resp B/P B/P Pulse O2 O2 Flow FiO2 Mean Ox Delivery Rate 02/25 0520 93 Nasal 2.0L Cannula 02/25 0000 97.7 92 19 154/59 93 CPAP 2.0L 02/25 0000 94 CPAP 2.0L 02/24 2000 95 Nasal 2.0L Cannula 02/24 1600 98 Nasal 2.0L Cannula 02/24 1600 98.2 90 18 120/52 98 Nasal 2.0L Cannula 02/24 1200 98 Room Air 02/24 0910 97.4 90 30 102/58 98 Nasal 2.0L Cannula 02/24 0800 98 Room Air Intake & Output 02/25 0800 02/25 0000 02/24 1600 02/24 0800 02/24 0000 02/23 1600 Intake Total 120 1860 1195 1226 2250 1000 Output Total 500 250 20 210 200 Balance -380 1610 1175 1016 2050 1000 Intake, Blood 1310 694 650 Product Intake, IV 0 250 9575 980 2595 1000 Intake, Oral 120 300 150 0 0 Number 0 0 2 3 2 Bowel Movements Output, 150 Emesis Output, Urine 500 250 20 60 200 Patient 216 lb 167 lb Weight Weight Bed scale Reported by Patient Measurement Method Back: L CVA tenderness Abd: soft with LUQ tenderness radiating to the L flank Genitalia: ayers in place. Draining clear urine. Urine output improved following single dose of lasix last PM Laboratory Tests 02/25 02/24 0425 2220 Chemistry Sodium (137 - 145 mmol/L) 140 138 Potassium (3.5 - 5.1 mmol/L) 4.5 4.9 Chloride (98 - 107 mmol/L) 102 102 Carbon Dioxide (22 - 30 mmol/L) 22 21 L Anion Gap (5 - 16) 16 15 BUN (7 - 17 mg/dL) 65 H 59 H Creatinine (0.5 - 1.0 mg/dL) 2.8 H 2.8 H Estimated GFR (>60 ml/min) 16 L 16 L Glucose (65 - 99 mg/dL) 149 H 154 H Calcium (8.4 - 10.2 mg/dL) 8.7 8.6 Phosphorus (2.5 - 4.5 mg/dL) 5.8 H 6.3 H Magnesium (1.6 - 2.3 mg/dL) 2.9 H 2.9 H Total Bilirubin (0.2 - 1.3 mg/dL) 0.9 1.0 AST (14 - 36 U/L) 142 H 151 H ALT (9 - 52 U/L) 72 H 73 H Albumin (3.5 - 5.0 g/dL) 3.4 L 3.4 L Coagulation PT (9.4 - 12.5 SEC) 17.7 H 18.5 H INR (0.90 - 1.19) 1.62 H 1.69 H Hematology CBC w Diff MAN DIFF ORDERED NO MAN DIFF REQ WBC (4.8 - 10.8 /CUMM) 18.7 H 16.0 H RBC (4.20 - 5.40 /CUMM) 2.57 L 2.76 L Hgb (12.0 - 16.0 G/DL) 7.9 L 8.4 L Hct (37 - 47 %) 23.4 L 24.9 L MCV (81.0 - 99.0 FL) 91.0 90.3 MCH (27.0 - 31.0 PG) 30.7 30.4 MCHC (33.0 - 37.0 G/DL) 33.7 33.7 RDW (11.5 - 14.5 %) 16.4 H 15.6 H Plt Count (130 - 400 /CUMM) 188 165 MPV (7.4 - 10.4 FL) 9.1 8.5 Gran % (42.2 - 75.2 %) 86.9 H 87.2 H Lymphocytes % (20.5 - 51.1 %) 4.5 L 4.6 L Monocytes % (1.7 - 9.3 %) 8.6 8.1 Eosinophils % (0 - 5 %) 0 0.1 Basophils % (0.0 - 2.0 %) 0 0 Absolute Granulocytes (1.4 - 6.5 /CUMM) 16.2 H 14.0 H Segmented Neutrophils (42.2 - 75.2 %) 80 H Band Neutrophils (0.0 - 5.0 %) 2 Absolute Lymphocytes (1.2 - 3.4 /CUMM) 0.8 L 0.7 L Lymphocytes (20.5 - 51.1 %) 6 L Monocytes (1.7 - 9.3 %) 12 H Absolute Monocytes (0.10 - 0.60 /CUMM) 1.6 H 1.3 H Absolute Eosinophils (0.0 - 0.7 /CUMM) 0 0 Absolute Basophils (0.0 - 0.2 /CUMM) 0 0 Platelet Estimate (ADEQUATE) ADEQUATE Polychromasia 1+ Poikilocytosis 1+ Basophilic Stippling 1+ Ovalocytes 1+ Other Body Source Fld Total RBCs Counted (%) 100 02/24 02/24 02/24 1330 1330 1300 Chemistry Sodium (137 - 145 mmol/L) 140 Potassium (3.5 - 5.1 mmol/L) 5.1 Chloride (98 - 107 mmol/L) 105 Carbon Dioxide (22 - 30 mmol/L) 22 Anion Gap (5 - 16) 13 BUN (7 - 17 mg/dL) 58 H Creatinine (0.5 - 1.0 mg/dL) 2.6 H Estimated GFR (>60 ml/min) 18 L Glucose (65 - 99 mg/dL) 140 H Calcium (8.4 - 10.2 mg/dL) 8.3 L Phosphorus (2.5 - 4.5 mg/dL) 6.7 H Magnesium (1.6 - 2.3 mg/dL) 2.8 H Cancelled Total Bilirubin (0.2 - 1.3 mg/dL) 0.6 AST (14 - 36 U/L) 147 H ALT (9 - 52 U/L) 74 H Troponin I (< 0.11 ng/ml) Cancelled 0.23 *H Albumin (3.5 - 5.0 g/dL) 3.0 L Hematology CBC w Diff NO MAN DIFF REQ Cancelled WBC (4.8 - 10.8 /CUMM) 15.3 H Cancelled RBC (4.20 - 5.40 /CUMM) 2.22 L Cancelled Hgb (12.0 - 16.0 G/DL) 7.0 *L Cancelled Hct (37 - 47 %) 20.5 L Cancelled MCV (81.0 - 99.0 FL) 92.5 Cancelled MCH (27.0 - 31.0 PG) 31.4 H Cancelled MCHC (33.0 - 37.0 G/DL) 34.0 Cancelled RDW (11.5 - 14.5 %) 16.3 H Cancelled Plt Count (130 - 400 /CUMM) 193 Cancelled MPV (7.4 - 10.4 FL) 8.8 Cancelled Gran % (42.2 - 75.2 %) 85.7 H Lymphocytes % (20.5 - 51.1 %) 6.3 L Monocytes % (1.7 - 9.3 %) 7.9 Eosinophils % (0 - 5 %) 0.1 Basophils % (0.0 - 2.0 %) 0 Absolute Granulocytes (1.4 - 6.5 /CUMM) 13.1 H Absolute Lymphocytes (1.2 - 3.4 /CUMM) 1.0 L Absolute Monocytes (0.10 - 0.60 /CUMM) 1.2 H Absolute Eosinophils (0.0 - 0.7 /CUMM) 0 Absolute Basophils (0.0 - 0.2 /CUMM) 0 06/10 0903 Chemistry Potassium (3.5 - 5.1 mmol/L) 5.2 H Lactic Acid (0.7 - 2.1 mmol/L) 1.8 Assessment/Plan Assessment/Plan Imp: 1. Spontaneous L perinephric/retroperitoneal bleed in setting of supratherapeutic INR. (now corrected to 1.6). Hemodynamically stable but still requiring transfusion 2. Renal insufficiency likely related to some CKD and ATN from hypotension Plan: 1. Continue conservative management with transfusion as needed. Now that INR is approaching normal range bleeding is more likley to resolve. If bleeding does not resolve then angriography and selective embolization is next option. In view of elevated creatinine would hold off on this unless absolutely necessary.
--- NOTE | 2018-02-25 08:23 | PN- Housestaff ---
Chema TERRY,Tao 02/25/18 0822: Subjective Follow-up For: Supratherapeutic INR retroperitoneal hematoma Demand ischemia MONSERRAT/ATN Complaints: c/o pain in abdoman Subjective: Patient is seen and examined at the bedside. She was complaining of pain in the left lower abdomen. She was asking for the extra pain medication. We discussed about the side effects of pain medication including drowsiness and dosing changes in scenario of renal dysfunction. We changed the doses of injection Dilaudid and added tablet tramadol. Review of Systems Constitutional: Reports: no symptoms, weakness. Gastrointestinal: Reports: abdominal pain, bloating. Objective Last 24 Hrs of Vital Signs/I&O Vital Signs Date Time Temp Pulse Resp B/P B/P Pulse O2 O2 Flow FiO2 Mean Ox Delivery Rate 02/25 08 97.8 84 20 151/56 96 Nasal 2.0L Cannula 02/25 0800 95 Nasal 2.0L Cannula 02/25 0520 93 Nasal 2.0L Cannula 02/25 0400 96 CPAP 2.0L 02/25 0000 97.7 92 19 154/59 93 CPAP 2.0L 02/25 0000 94 CPAP 2.0L 02/24 2000 95 Nasal 2.0L Cannula 02/24 1600 98 Nasal 2.0L Cannula 02/24 1600 98.2 90 18 120/52 98 Nasal 2.0L Cannula 02/24 1200 98 Room Air Intake & Output 02/25 1600 02/25 0800 02/25 0000 Intake Total 120 1860 Output Total 500 250 Balance -380 1610 Intake, Blood 1310 Product Intake, IV 0 250 Intake, Oral 120 300 Number 0 0 Bowel Movements Output, Urine 500 250 Physical Exam General Appearance: Alert, Oriented X3, Cooperative, No Acute Distress Skin: pale, areas of hypo and hyperpigmentation Neck: Supple, No JVD Cardiovascular: Normal S1, Normal S2 Lungs: Clear to Auscultation, Normal Air Movement Abdomen: Soft, tender in left upper/ middle and lower area Neurological: Normal Speech Extremities: No Clubbing, No Cyanosis, No Edema Vascular: Normal Pulses, Pulses Symmetrical Current Medications: Current Medications Sig/Mauro Start time Last Medication Dose Route Stop Time Status Admin Acetaminophen 650 MG Q6P PRN 02/23 1915 DC PO Acetaminophen 1,000 MG Q6P PRN 02/23 1915 DC 02/24 IV 0157 Furosemide 40 MG ONCE ONE 02/24 1500 DC 02/24 IV 02/24 1501 1747 Hydromorphone HCl 0.4 MG Q6 02/25 1200 AC IV Hydromorphone HCl 0.2 MG Q4P PRN 02/24 1045 DC 02/25 IV 0521 Insulin Aspart 0 TIDAC 02/25 1200 AC SC Insulin Human Regular 4 UNITS .STK-MED ONE 02/24 2324 DC IV 02/24 2325 Insulin Human Regular 0 Q6 02/23 2359 DC 02/25 SC 0557 Levothyroxine Sodium 0.075 MG DAILY 02/24 1131 AC 02/25 PO 0859 Ondansetron HCl 4 MG Q6P PRN 02/24 1045 AC 02/24 IV 1644 Phytonadione 10 MG DAILY 02/23 1744 DC 02/25 PO 02/25 0901 0859 Sodium Chloride 500 ML BOLUS ONE 02/24 1045 DC 02/24 IV 02/24 1144 1049 Sodium Chloride 1,000 ML Q10H 02/23 2000 DC 02/24 IV 02/24 1559 0610 Tramadol HCl 50 MG BID 02/25 0900 AC 02/25 PO 0811 Tramadol HCl 50 MG Q6 02/24 1200 CAN PO Tramadol HCl 50 MG Q4 PRN 02/23 1915 DC 02/24 PO 0902 Last 24 Hrs of Lab/Sharan Results Last 24 Hrs of Labs/Mics: Laboratory Tests 02/25/18 0425: Anion Gap 16, Estimated GFR 16 L, Glucose 149 H, Calcium 8.7, Phosphorus 5.8 H, Magnesium 2.9 H, Total Bilirubin 0.9, AST 142 H, ALT 72 H, Albumin 3.4 L, PT 17.7 H, INR 1.62 H, CBC w Diff MAN DIFF ORDERED, RBC 2.57 L, MCV 91.0, MCH 30.7, MCHC 33.7, RDW 16.4 H, MPV 9.1, Gran % 86.9 H, Lymphocytes % 4.5 L, Monocytes % 8.6, Eosinophils % 0, Basophils % 0, Absolute Granulocytes 16.2 H, Segmented Neutrophils 80 H, Band Neutrophils 2, Absolute Lymphocytes 0.8 L, Lymphocytes 6 L, Monocytes 12 H, Absolute Monocytes 1.6 H, Absolute Eosinophils 0, Absolute Basophils 0, Platelet Estimate ADEQUATE, Polychromasia 1 +, Poikilocytosis 1+, Basophilic Stippling 1+, Ovalocytes 1+, Fld Total RBCs Counted 100 02/24/18 2220: Anion Gap 15, Estimated GFR 16 L, Glucose 154 H, Calcium 8.6, Phosphorus 6.3 H, Magnesium 2.9 H, Total Bilirubin 1.0, AST 151 H, ALT 73 H, Albumin 3.4 L, PT 18.5 H, INR 1.69 H, CBC w Diff NO MAN DIFF REQ, RBC 2.76 L, MCV 90.3, MCH 30.4, MCHC 33.7, RDW 15.6 H, MPV 8.5, Gran % 87.2 H, Lymphocytes % 4.6 L, Monocytes % 8.1, Eosinophils % 0.1, Basophils % 0, Absolute Granulocytes 14.0 H , Absolute Lymphocytes 0.7 L, Absolute Monocytes 1.3 H, Absolute Eosinophils 0 , Absolute Basophils 0 02/24/18 1330: Troponin I Cancelled 02/24/18 1330: Anion Gap 13, Estimated GFR 18 L, Glucose 140 H, Calcium 8.3 L, Phosphorus 6.7 H, Magnesium 2.8 H, Total Bilirubin 0.6, AST 147 H, ALT 74 H, Troponin I 0.23 *H, Albumin 3.0 L, CBC w Diff NO MAN DIFF REQ, RBC 2.22 L, MCV 92.5, MCH 31.4 H, MCHC 34.0, RDW 16.3 H, MPV 8.8, Gran % 85.7 H, Lymphocytes % 6.3 L, Monocytes % 7.9, Eosinophils % 0.1, Basophils % 0, Absolute Granulocytes 13.1 H , Absolute Lymphocytes 1.0 L, Absolute Monocytes 1.2 H, Absolute Eosinophils 0 , Absolute Basophils 0 02/24/18 1300: Magnesium Cancelled, CBC w Diff Cancelled, WBC Cancelled, RBC Cancelled, Hgb Cancelled, Hct Cancelled, MCV Cancelled, MCH Cancelled, MCHC Cancelled, RDW Cancelled, Plt Count Cancelled, MPV Cancelled Assessment/Plan Assessment: Patient is an 78-year-old female with significant past medical history of hypertension, hyperlipidemia, hypothyroidism, type 2 diabetes, obstructive sleep apnea on CPAP, hereditary Vitiligo, chronic atrial fibrillation on Coumadin, presented after an episode of emotional stress ( of grandson), leading to syncopal episode and left flank pain and found to have left-sided retroperitoneal/perinephric hematoma. Vital signs-afebrile, blood pressure in the range of 170/63, pulse rate 90, atrial fibrillation, SPO2 96% on 2 L of nasal cannula intake/output-3175/770 Left retroperitoneal hematoma adjacent to left mid to lower kidney/left perinephric space, hemodynamically stable - * Goal of Hb >8; incentive spiromery, ALPS * She was complaining of pain, on the left flank region and nausea. * We increased the dose of injection Dilaudid 0.4 mg IV every 6 hourly, and added tablet tramadol 50 mg twice daily. * We will avoid nephrotoxic medications * If patient becomes hemodynamically unstable then we will need to CT/MR to know the size of hematoma transferred the patient to the higher facility. * Patient is awair of all her situation and want to have treatment in the [facility]. * We will stop IV fluids. * f/u Hb is 7.2. we will transfuse 2 units of PRBC. Supratherapeutic INR -resolved * Today's PT/INR is 1.62 * We will regularly monitor PT/INR * Tab Vit K 10mg stopped today after 3 doses * Watch for bleeding. Type II IN, Demand ischemia - * Her troponins is stabilized 0.23, she is asymptomatic. * Follow-up echocardiogram -LVEF 60-65, no regional wall motion abnormality, RVSP 60. * Her last echocardiogram shows ejection fraction of 65%(2012). * We'll follow the cardiology recommendation Acute kidney injury, anuric converted to oliguric possible ATN- * Will follow nephrology recommendations * Strict intake output charting. * Continue Christianson catheterization. * Avoid nephrotoxic medication including NSAIDs Atrial fibrillation with controlled ventricular rate, Coumadin on hold - * We continue to hold anticoagulant * If needed then we will give FFP according to the INR and hemoglobin status. * Patient is at high risk of stroke, we discussed about the use of ALPS. Type 2 diabetes mellitus- * Blood sugar charting 3 times daily/at bedtime. * NovoLog according to the sliding scale. Chronic medical condition-hypothyroidism, hypertension, hyperlipidemia, obstructive sleep apnea- * Continue tablet levothyroxin 75mcg daily * We will hold antihypertensive for now until she stabilized * CPAP overnight CODE STATUS -DNR/DNI. DVT prophylaxis -ALPS, avoid Coumadin, heparin Diet -carbohydrate type II diet Problem List: 1. Syncope 2. Retroperitoneal bleed 3. Supratherapeutic INR Pain Ratin Pain Location: left mushtaq of abdomen Pain Goal: Pain 4 or less Pain Plan: avoid NSAIDs Tomorrow's Labs & Rationales: f/u CBC,ICU bundle DVT/Prophylaxis: mechanical Consulting Request: Consulting Specialty: Nephrology Jonas Choudhary MD 02/25/18 1116: Attending MD Review Statement Attending Statement Attending MD Statement: examined this patient, discuss w/resident/PA/MANAGER AEROSPACE, agreed w/resident/PA/MANAGER AEROSPACE, discussed with family, reviewed EMR data (avail), discussed with nursing, discussed with case mgmt, reviewed images, amended to note Attending Assessment/Plan: Jonas Nieto M.D. have examined this patient, reviewed available EMR data, personally reviewed images, discussed with resident/PA/MANAGER AEROSPACE, discussed management plan with housestaff and nursing staff, discussed managment plan all of healthcare providers, discussed management plan with patient and/or family, agreed with resident/PA/MANAGER AEROSPACE. The past history and parts of the chart have been autopopulated. Impression 78 year old woman * left sided retroperitoneal localized bleed * acute blood loss anemia * MONSERRAT/ATN * a.fib Plan -a/c held, risk understood for lack of a/c for a.fib in setting of acute anemia/ bleed -cardiology, nephorlogy, urology consultations reviewed and will follow recommendations -monitor cbc, coags -blood transfusion - goal hgb >8 -monitor urine output -pain control -incentive spirometry ALPS for DVT prophylaxis at all times TTS 40 min Discussed with patient, housestaff, family at bedside
[2018-02-25 08:25] VITALS: BP 151/56
--- NOTE | 2018-02-25 08:37 | RADIOLOGY REPORT ---
EXAMINATION: XR PORTABLE CHEST CLINICAL INFORMATION: Atrial fibrillation. Suspected fluid overload. COMPARISON: Chest x-ray done on 02/24/2018 TECHNIQUE: Portable frontal view of the chest was obtained. FINDINGS: Persistent stable linear pleural parenchymal opacities are noted at the left lung base, most consistent with pleural parenchymal scar, atelectasis or a combination thereof. No other discrete focal airspace disease is noted. There is no evidence of any pulmonary venous hypertension or pleural effusion. The cardiomediastinal silhouette remains moderately enlarged. The visualized upper abdomen is unremarkable. IMPRESSION: Persistent stable enlargement of the cardiomediastinal silhouette without any radiographic evidence of CHF/fluid overload. No radiographic evidence of pneumonia.
--- NOTE | 2018-02-25 10:31 | PN- Nephrology ---
Assessment/Plan Nephrology Assessment: MONSERRAT - 2/2 ATN in the setting of hypotension from L perirenal bleed while on outpatient ARB/Lasix. Renal function starting to stabilize. L perirenal bleed - No clear mass on non-contrast CT imaging. Once she stabilizes, should probably have more dedicated imaging (preferably MR once renal function back to baseline) to see exactly what may have led to the bleeding. Should note that Hg continues to downtrend although hemodynamically stable - further downtrending of Hg and/or hemodynamic instability may warrant repeat imaging and/or hospital transfer. Suggestion: -Would hold off on further IVF at this time -Cont to closely monitor Hg and hemodynamics - would repeat CT imaging if Hg significantly downtrends and/or hemodynamic instability develops -Will eventually need more dedicated renal imaging once clinically back to baseline (preferably MR when renal function back to baseline) -Cont to hold ARB/Metformin Please call [phone] with ?'s Subjective Subjective: SCr stable at 2.8 330cc UOP yesterday; 500cc thus far today Hg 7.9; INR 1.62 Still with significant pain No fluid on chest x-ray Objective Vital Signs and I&Os Vital Signs Date Time Temp Pulse Resp B/P B/P Pulse O2 O2 Flow FiO2 Mean Ox Delivery Rate 02/25 0825 97.8 84 20 151/56 96 Nasal 2.0L Cannula 02/25 0800 95 Nasal 2.0L Cannula 02/25 0520 93 Nasal 2.0L Cannula 02/25 0400 96 CPAP 2.0L 02/25 0000 97.7 92 19 154/59 93 CPAP 2.0L 02/25 0000 94 CPAP 2.0L 02/24 2000 95 Nasal 2.0L Cannula 02/24 1600 98 Nasal 2.0L Cannula 02/24 1600 98.2 90 18 120/52 98 Nasal 2.0L Cannula 02/24 1200 98 Room Air Intake & Output 02/25 1600 02/25 0400 02/24 1600 02/24 0400 02/23 1600 02/23 0400 Intake Total 120 1860 2421 2250 1000 Output Total 500 250 230 200 Balance -380 1610 2191 2050 1000 Intake, Blood 1310 694 650 Product Intake, IV 0 250 1577 1600 1000 Intake, Oral 120 300 150 0 Number 0 0 5 2 Bowel Movements Output, 150 Emesis Output, Urine 500 250 80 200 Patient 216 lb 167 lb Weight Weight Bed scale Reported by Patient Measurement Method Physical Exam: Gen - in pain HEENT - supple CV - RRR, no m/r/g Chest - clear, no w/r/r Abd - soft, NTND Ext - warm, no edema Neuro - AOX3, grossly nonfocal Current Medications: Current Medications Sig/Mauro Start time Last Medication Dose Route Stop Time Status Admin Furosemide 40 MG ONCE ONE 02/24 1500 DC 02/24 IV 02/24 1501 1747 Hydromorphone HCl 0.4 MG Q6 02/25 1200 AC 02/25 IV 1101 Hydromorphone HCl 0.2 MG Q4P PRN 02/24 1045 DC 02/25 IV 0521 Insulin Aspart 0 TIDAC 02/25 1200 AC SC Insulin Human Regular 4 UNITS .STK-MED ONE 02/24 2324 DC IV 02/24 2325 Insulin Human Regular 0 Q6 02/23 2359 DC 02/25 SC 0557 Levothyroxine Sodium 0.075 MG DAILY 02/24 1131 AC 02/25 PO 0859 Ondansetron HCl 4 MG Q6P PRN 02/24 1045 AC 02/24 IV 1644 Phytonadione 10 MG DAILY 02/23 1744 DC 02/25 PO 02/25 0901 0859 Sodium Chloride 500 ML BOLUS ONE 02/24 1045 DC 02/24 IV 02/24 1144 1049 Sodium Chloride 1,000 ML Q10H 02/23 2000 DC 02/24 IV 02/24 1559 0610 Tramadol HCl 50 MG BID 02/25 0900 02/25 PO 0811 Results Pertinent Lab Results: Laboratory Tests 02/25 02/24 0425 2220 Chemistry Sodium (137 - 145 mmol/L) 140 138 Potassium (3.5 - 5.1 mmol/L) 4.5 4.9 Chloride (98 - 107 mmol/L) 102 102 Carbon Dioxide (22 - 30 mmol/L) 22 21 L Anion Gap (5 - 16) 16 15 BUN (7 - 17 mg/dL) 65 H 59 H Creatinine (0.5 - 1.0 mg/dL) 2.8 H 2.8 H Estimated GFR (>60 ml/min) 16 L 16 L Glucose (65 - 99 mg/dL) 149 H 154 H Calcium (8.4 - 10.2 mg/dL) 8.7 8.6 Phosphorus (2.5 - 4.5 mg/dL) 5.8 H 6.3 H Magnesium (1.6 - 2.3 mg/dL) 2.9 H 2.9 H Total Bilirubin (0.2 - 1.3 mg/dL) 0.9 1.0 AST (14 - 36 U/L) 142 H 151 H ALT (9 - 52 U/L) 72 H 73 H Albumin (3.5 - 5.0 g/dL) 3.4 L 3.4 L Coagulation PT (9.4 - 12.5 SEC) 17.7 H 18.5 H INR (0.90 - 1.19) 1.62 H 1.69 H Hematology CBC w Diff MAN DIFF ORDERED NO MAN DIFF REQ WBC (4.8 - 10.8 /CUMM) 18.7 H 16.0 H RBC (4.20 - 5.40 /CUMM) 2.57 L 2.76 L Hgb (12.0 - 16.0 G/DL) 7.9 L 8.4 L Hct (37 - 47 %) 23.4 L 24.9 L MCV (81.0 - 99.0 FL) 91.0 90.3 MCH (27.0 - 31.0 PG) 30.7 30.4 MCHC (33.0 - 37.0 G/DL) 33.7 33.7 RDW (11.5 - 14.5 %) 16.4 H 15.6 H Plt Count (130 - 400 /CUMM) 188 165 MPV (7.4 - 10.4 FL) 9.1 8.5 Gran % (42.2 - 75.2 %) 86.9 H 87.2 H Lymphocytes % (20.5 - 51.1 %) 4.5 L 4.6 L Monocytes % (1.7 - 9.3 %) 8.6 8.1 Eosinophils % (0 - 5 %) 0 0.1 Basophils % (0.0 - 2.0 %) 0 0 Absolute Granulocytes (1.4 - 6.5 /CUMM) 16.2 H 14.0 H Segmented Neutrophils (42.2 - 75.2 %) 80 H Band Neutrophils (0.0 - 5.0 %) 2 Absolute Lymphocytes (1.2 - 3.4 /CUMM) 0.8 L 0.7 L Lymphocytes (20.5 - 51.1 %) 6 L Monocytes (1.7 - 9.3 %) 12 H Absolute Monocytes (0.10 - 0.60 /CUMM) 1.6 H 1.3 H Absolute Eosinophils (0.0 - 0.7 /CUMM) 0 0 Absolute Basophils (0.0 - 0.2 /CUMM) 0 0 Platelet Estimate (ADEQUATE) ADEQUATE Polychromasia 1+ Poikilocytosis 1+ Basophilic Stippling 1+ Ovalocytes 1+ Other Body Source Fld Total RBCs Counted (%) 100 02/24 02/24 02/24 1330 1330 1300 Chemistry Sodium (137 - 145 mmol/L) 140 Potassium (3.5 - 5.1 mmol/L) 5.1 Chloride (98 - 107 mmol/L) 105 Carbon Dioxide (22 - 30 mmol/L) 22 Anion Gap (5 - 16) 13 BUN (7 - 17 mg/dL) 58 H Creatinine (0.5 - 1.0 mg/dL) 2.6 H Estimated GFR (>60 ml/min) 18 L Glucose (65 - 99 mg/dL) 140 H Calcium (8.4 - 10.2 mg/dL) 8.3 L Phosphorus (2.5 - 4.5 mg/dL) 6.7 H Magnesium (1.6 - 2.3 mg/dL) 2.8 H Cancelled Total Bilirubin (0.2 - 1.3 mg/dL) 0.6 AST (14 - 36 U/L) 147 H ALT (9 - 52 U/L) 74 H Troponin I (< 0.11 ng/ml) Cancelled 0.23 *H Albumin (3.5 - 5.0 g/dL) 3.0 L Hematology CBC w Diff NO MAN DIFF REQ Cancelled WBC (4.8 - 10.8 /CUMM) 15.3 H Cancelled RBC (4.20 - 5.40 /CUMM) 2.22 L Cancelled Hgb (12.0 - 16.0 G/DL) 7.0 *L Cancelled Hct (37 - 47 %) 20.5 L Cancelled MCV (81.0 - 99.0 FL) 92.5 Cancelled MCH (27.0 - 31.0 PG) 31.4 H Cancelled MCHC (33.0 - 37.0 G/DL) 34.0 Cancelled RDW (11.5 - 14.5 %) 16.3 H Cancelled Plt Count (130 - 400 /CUMM) 193 Cancelled MPV (7.4 - 10.4 FL) 8.8 Cancelled Gran % (42.2 - 75.2 %) 85.7 H Lymphocytes % (20.5 - 51.1 %) 6.3 L Monocytes % (1.7 - 9.3 %) 7.9 Eosinophils % (0 - 5 %) 0.1 Basophils % (0.0 - 2.0 %) 0 Absolute Granulocytes (1.4 - 6.5 /CUMM) 13.1 H Absolute Lymphocytes (1.2 - 3.4 /CUMM) 1.0 L Absolute Monocytes (0.10 - 0.60 /CUMM) 1.2 H Absolute Eosinophils (0.0 - 0.7 /CUMM) 0 Absolute Basophils (0.0 - 0.2 /CUMM) 0 02/24 02/24 02/24 0903 0600 0517 Chemistry Potassium (3.5 - 5.1 mmol/L) 5.2 H Lactic Acid (0.7 - 2.1 mmol/L) 1.8 3.2 H Hematology CBC w Diff Cancelled WBC Cancelled RBC Cancelled Hgb Cancelled Hct Cancelled MCV Cancelled MCH Cancelled MCHC Cancelled RDW Cancelled Plt Count Cancelled MPV Cancelled 02/24 02/24 02/24 0517 0443 0047 Chemistry Sodium (137 - 145 mmol/L) 137 Potassium (3.5 - 5.1 mmol/L) 5.2 H Chloride (98 - 107 mmol/L) 103 Carbon Dioxide (22 - 30 mmol/L) 19 L Anion Gap (5 - 16) 15 BUN (7 - 17 mg/dL) 52 H Creatinine (0.5 - 1.0 mg/dL) 2.2 H Estimated GFR (>60 ml/min) 21 L Glucose (65 - 99 mg/dL) 175 H Calcium (8.4 - 10.2 mg/dL) 9.0 Phosphorus (2.5 - 4.5 mg/dL) 7.2 H Magnesium (1.6 - 2.3 mg/dL) 2.7 H Total Bilirubin (0.2 - 1.3 mg/dL) 1.1 AST (14 - 36 U/L) 151 H ALT (9 - 52 U/L) 79 H Troponin I (< 0.11 ng/ml) 0.23 *H 0.23 *H [id number] Pept (<125 pg/mL) 34937 H Cancelled Albumin (3.5 - 5.0 g/dL) 3.3 L Coagulation PT (9.4 - 12.5 SEC) 34.7 H INR (0.90 - 1.19) 3.15 H Hematology CBC w Diff NO MAN DIFF REQ WBC (4.8 - 10.8 /CUMM) 18.6 H RBC (4.20 - 5.40 /CUMM) 2.73 L Hgb (12.0 - 16.0 G/DL) 8.5 L Hct (37 - 47 %) 25.3 L MCV (81.0 - 99.0 FL) 92.5 MCH (27.0 - 31.0 PG) 31.2 H MCHC (33.0 - 37.0 G/DL) 33.8 RDW (11.5 - 14.5 %) 15.6 H Plt Count (130 - 400 /CUMM) 198 MPV (7.4 - 10.4 FL) 8.6 Gran % (42.2 - 75.2 %) 88.2 H Lymphocytes % (20.5 - 51.1 %) 5.5 L Monocytes % (1.7 - 9.3 %) 6.2 Eosinophils % (0 - 5 %) 0 Basophils % (0.0 - 2.0 %) 0.1 Absolute Granulocytes (1.4 - 6.5 /CUMM) 16.4 H Absolute Lymphocytes (1.2 - 3.4 /CUMM) 1.0 L Absolute Monocytes (0.10 - 0.60 /CUMM) 1.2 H Absolute Eosinophils (0.0 - 0.7 /CUMM) 0 Absolute Basophils (0.0 - 0.2 /CUMM) 0 02/24 02/23 0047 1810 Chemistry Lactic Acid (0.7 - 2.1 mmol/L) 8.8 H Troponin I (< 0.11 ng/ml) 0.19 *H Hematology CBC w Diff NO MAN DIFF REQ WBC (4.8 - 10.8 /CUMM) 12.7 H RBC (4.20 - 5.40 /CUMM) 2.19 L Hgb (12.0 - 16.0 G/DL) 7.0 *L Hct (37 - 47 %) 20.7 L MCV (81.0 - 99.0 FL) 94.4 MCH (27.0 - 31.0 PG) 31.8 H MCHC (33.0 - 37.0 G/DL) 33.7 RDW (11.5 - 14.5 %) 15.1 H Plt Count (130 - 400 /CUMM) 266 MPV (7.4 - 10.4 FL) 8.5 Gran % (42.2 - 75.2 %) 86.2 H Lymphocytes % (20.5 - 51.1 %) 7.3 L Monocytes % (1.7 - 9.3 %) 6.2 Eosinophils % (0 - 5 %) 0 Basophils % (0.0 - 2.0 %) 0.3 Absolute Granulocytes (1.4 - 6.5 /CUMM) 10.9 H Absolute Lymphocytes (1.2 - 3.4 /CUMM) 0.9 L Absolute Monocytes (0.10 - 0.60 /CUMM) 0.8 H Absolute Eosinophils (0.0 - 0.7 /CUMM) 0 Absolute Basophils (0.0 - 0.2 /CUMM) 0 02/23 02/23 1452 1403 Chemistry Sodium (137 - 145 mmol/L) 135 L Potassium (3.5 - 5.1 mmol/L) 4.0 Chloride (98 - 107 mmol/L) 100 Carbon Dioxide (22 - 30 mmol/L) 21 L Anion Gap (5 - 16) 14 BUN (7 - 17 mg/dL) 43 H Creatinine (0.5 - 1.0 mg/dL) 1.5 H Estimated GFR (>60 ml/min) 33 L BUN/Creatinine Ratio (7 - 25 %) 28.7 H Glucose (65 - 99 mg/dL) 254 H Calcium (8.4 - 10.2 mg/dL) 9.5 Total Bilirubin (0.2 - 1.3 mg/dL) 0.6 AST (14 - 36 U/L) 40 H ALT (9 - 52 U/L) 30 Alkaline Phosphatase (<127 U/L) 74 Troponin I (< 0.11 ng/ml) 0.15 *H Total Protein (6.3 - 8.2 g/dL) 6.1 L Albumin (3.5 - 5.0 g/dL) 3.7 Globulin (1.9 - 4.2 gm/dL) 2.4 Albumin/Globulin Ratio (1.1 - 2.2 %) 1.5 Coagulation PT (9.4 - 12.5 SEC) 74.5 *H INR (0.90 - 1.19) 6.70 *H APTT (25 - 37 SEC) 68 H Hematology CBC w Diff NO MAN DIFF REQ WBC (4.8 - 10.8 /CUMM) 14.3 H RBC (4.20 - 5.40 /CUMM) 3.23 L Hgb (12.0 - 16.0 G/DL) 10.3 L Hct (37 - 47 %) 30.7 L MCV (81.0 - 99.0 FL) 95.1 MCH (27.0 - 31.0 PG) 31.7 H MCHC (33.0 - 37.0 G/DL) 33.4 RDW (11.5 - 14.5 %) 15.2 H Plt Count (130 - 400 /CUMM) 264 MPV (7.4 - 10.4 FL) 8.6 Gran % (42.2 - 75.2 %) 84.4 H Lymphocytes % (20.5 - 51.1 %) 8.5 L Monocytes % (1.7 - 9.3 %) 6.3 Eosinophils % (0 - 5 %) 0.3 Basophils % (0.0 - 2.0 %) 0.5 Absolute Granulocytes (1.4 - 6.5 /CUMM) 12.1 H Absolute Lymphocytes (1.2 - 3.4 /CUMM) 1.2 Absolute Monocytes (0.10 - 0.60 /CUMM) 0.9 H Absolute Eosinophils (0.0 - 0.7 /CUMM) 0 Absolute Basophils (0.0 - 0.2 /CUMM) 0.1 Urines Urinalysis LIGHT H Urine Color (YEL,AMB,STR) YEL Urine Clarity (CLEAR) HAZY H Urine pH (5.0 - 8.0) 6.5 Ur Specific [place] (1.001 - 1.035) 1.010 Urine Protein (NEG,<30 MG/DL) NEG Urine Ketones (NEG) NEG Urine Nitrite (NEG) NEG Urine Bilirubin (NEG) NEG Urine Urobilinogen (0.1 - 1.0 EU/dl) 0.2 Ur Leukocyte Esterase (NEG) MOD H Ur Microscopic SEDIMENT EXAMINED Urine RBC (0 - 5 /HPF) RARE Urine WBC (0 - 2 /HPF) 5-10 H Ur Epithelial Cells (NONE,FEW) MANY H Urine Bacteria (NEG/NONE) FEW H Urine Mucus (FEW,NONE) RARE Urine Hemoglobin (NEG) NEG Urine Glucose (N MG/DL) NEG Imaging/Other Studies: EXAM TYPE: RAD - XRY-PORTABLE CHEST XRAY EXAMINATION: XR PORTABLE CHEST CLINICAL INFORMATION: Atrial fibrillation. Suspected fluid overload. COMPARISON: Chest x-ray done on 02/24/2018 TECHNIQUE: Portable frontal view of the chest was obtained. FINDINGS: Persistent stable linear pleural parenchymal opacities are noted at the left lung base, most consistent with pleural parenchymal scar, atelectasis or a combination thereof. No other discrete focal airspace disease is noted. There is no evidence of any pulmonary venous hypertension or pleural effusion. The cardiomediastinal silhouette remains moderately enlarged. The visualized upper abdomen is unremarkable. IMPRESSION: Persistent stable enlargement of the cardiomediastinal silhouette without any radiographic evidence of CHF/fluid overload. No radiographic evidence of pneumonia. CT IMPRESSION: 1. Heterogeneous abnormal radiodensity extending from the left posterior kidney into the left pararenal space. Findings are concerning for local heterogeneous hemorrhage. The etiology is uncertain, and hemorrhage secondary to supratherapeutic INR or underlying neoplasm can be considered (i.e. renal cell carcinoma or AML). An infectious process is considered less likely. Consider correlation with urinalysis/urine cytology. Recommend short-term followup abdominal MRI or CT scan without and with contrast to assess for an underlying enhancing mass lesion. 2. No AAA. 3. Other nonacute findings as above.
--- NOTE | 2018-02-25 12:19 | PN- Cardiology ---
Subjective Subjective: No chest pain. No palpitations. Intermittent abdominal pain. No shortness of breath. Objective Vital Signs and I&Os Vital Signs Date Time Temp Pulse Resp B/P B/P Pulse O2 O2 Flow FiO2 Mean Ox Delivery Rate 02/25 1706 99.3 90 26 150/64 02/25 1600 95 Nasal 2.0L Cannula 02/25 1600 99.3 90 26 150/64 95 Nasal 2.0L Cannula 02/25 1329 Nasal 2.0L Cannula 02/25 1320 Nasal 2.0L Cannula 02/25 1312 Nasal 2.0L Cannula 02/25 1200 95 Nasal 2.0L Cannula 02/25 0825 97.8 84 20 151/56 96 Nasal 2.0L Cannula 02/25 0800 95 Nasal 2.0L Cannula 02/25 0520 93 Nasal 2.0L Cannula 02/25 0400 96 CPAP 2.0L 02/25 0000 97.7 92 19 154/59 93 CPAP 2.0L 02/25 0000 94 CPAP 2.0L 02/24 2000 95 Nasal 2.0L Cannula Intake & Output 02/25 1600 02/25 0800 02/25 0000 02/24 1600 02/24 0800 02/24 0000 Intake Total 894 199 8090 1195 1226 2250 Output Total 500 500 250 20 210 200 Balance 20 -380 1610 1175 1016 2050 Intake, Blood 1310 694 650 Product Intake, IV 20 0 250 2488 286 0183 Intake, Oral 500 120 300 150 0 0 Number 0 0 2 3 2 Bowel Movements Output, 150 Emesis Output, Urine 500 500 250 20 60 200 Patient 216 lb Weight Weight Bed scale Measurement Method Physical Exam: Gen: The patient is in no acute distress HEENT: Normal nose, ears, and oropharynx. Pupils equal bilaterally. Conjunctiva normal. Neck: Supple with no JVD, no masses, and no thyromegaly Lungs: Clear to auscultation with normal respiratory effort Heart: RRR, S1, S2, 1/6 systolic murmur. No peripheral edema, 2+ pulses in the lower extremities bilaterally Abdomen: Soft, nontender, no masses. No hepatomegaly. No splenomegaly Extremities: No clubbing or cyanosis. Normal muscle strength in the upper and lower extremities Skin: Normal skin turgor with no skin ulcers or lesions noted. Current Medications: Current Medications Sig/Mauro Start time Last Medication Dose Route Stop Time Status Admin Hydromorphone HCl 0.4 MG Q6 02/25 1200 AC 02/25 IV 1101 Hydromorphone HCl 0.2 MG Q4P PRN 02/24 1045 DC 02/25 IV 0521 Insulin Aspart 0 TIDAC 02/25 1200 AC 02/25 SC 1713 Insulin Human Regular 4 UNITS .STK-MED ONE 02/25 0527 DC IV 02/25 0528 Insulin Human Regular 4 UNITS .STK-MED ONE 02/24 2324 DC IV 02/24 2325 Insulin Human Regular 0 Q6 02/23 2359 DC 02/25 SC 0557 Levothyroxine Sodium 0.075 MG DAILY 02/24 1131 AC 02/25 PO 0859 Ondansetron HCl 4 MG Q6P PRN 02/24 1045 AC 02/24 IV 1644 Phytonadione 10 MG DAILY 02/23 1744 DC 02/25 PO 02/25 0901 0859 Tramadol HCl 50 MG BID 02/25 0900 AC 02/25 PO 0811 Results Last 48 Hrs of Labs/Mics: Laboratory Tests 02/25/18 1430: Anion Gap 12, Estimated GFR 18 L, Glucose 167 H, Calcium 8.8, Phosphorus 4.7 H, Magnesium 2.9 H, Total Bilirubin 1.2, AST 101 H, ALT 71 H, Albumin 3.3 L, CBC w Diff MAN DIFF ORDERED, RBC 2.32 L, MCV 91.0, MCH 30.8, MCHC 33.9, RDW 16.4 H, MPV 8.5, Gran % 87.5 H, Lymphocytes % 3.7 L, Monocytes % 8.7, Eosinophils % 0, Basophils % 0.1, Absolute Granulocytes 18.2 H, Segmented Neutrophils 89 H, Band Neutrophils 5, Absolute Lymphocytes 0.8 L, Lymphocytes 2 L, Monocytes 4, Absolute Monocytes 1.8 H, Absolute Eosinophils 0, Absolute Basophils 0, Platelet Estimate VERIFIED BY SMEAR, Normocytic RBCs VERIFIED, Normochromic RBCs VERIFIED 02/25/18 0425: Anion Gap 16, Estimated GFR 16 L, Glucose 149 H, Calcium 8.7, Phosphorus 5.8 H, Magnesium 2.9 H, Total Bilirubin 0.9, AST 142 H, ALT 72 H, Albumin 3.4 L, PT 17.7 H, INR 1.62 H, CBC w Diff MAN DIFF ORDERED, RBC 2.57 L, MCV 91.0, MCH 30.7, MCHC 33.7, RDW 16.4 H, MPV 9.1, Gran % 86.9 H, Lymphocytes % 4.5 L, Monocytes % 8.6, Eosinophils % 0, Basophils % 0, Absolute Granulocytes 16.2 H, Segmented Neutrophils 80 H, Band Neutrophils 2, Absolute Lymphocytes 0.8 L, Lymphocytes 6 L, Monocytes 12 H, Absolute Monocytes 1.6 H, Absolute Eosinophils 0, Absolute Basophils 0, Platelet Estimate ADEQUATE, Polychromasia 1 +, Poikilocytosis 1+, Basophilic Stippling 1+, Ovalocytes 1+, Fld Total RBCs Counted 100 02/24/18 2220: Anion Gap 15, Estimated GFR 16 L, Glucose 154 H, Calcium 8.6, Phosphorus 6.3 H, Magnesium 2.9 H, Total Bilirubin 1.0, AST 151 H, ALT 73 H, Albumin 3.4 L, PT 18.5 H, INR 1.69 H, CBC w Diff NO MAN DIFF REQ, RBC 2.76 L, MCV 90.3, MCH 30.4, MCHC 33.7, RDW 15.6 H, MPV 8.5, Gran % 87.2 H, Lymphocytes % 4.6 L, Monocytes % 8.1, Eosinophils % 0.1, Basophils % 0, Absolute Granulocytes 14.0 H , Absolute Lymphocytes 0.7 L, Absolute Monocytes 1.3 H, Absolute Eosinophils 0 , Absolute Basophils 0 02/24/18 1330: Troponin I Cancelled 02/24/18 1330: Anion Gap 13, Estimated GFR 18 L, Glucose 140 H, Calcium 8.3 L, Phosphorus 6.7 H, Magnesium 2.8 H, Total Bilirubin 0.6, AST 147 H, ALT 74 H, Troponin I 0.23 *H, Albumin 3.0 L, CBC w Diff NO MAN DIFF REQ, RBC 2.22 L, MCV 92.5, MCH 31.4 H, MCHC 34.0, RDW 16.3 H, MPV 8.8, Gran % 85.7 H, Lymphocytes % 6.3 L, Monocytes % 7.9, Eosinophils % 0.1, Basophils % 0, Absolute Granulocytes 13.1 H , Absolute Lymphocytes 1.0 L, Absolute Monocytes 1.2 H, Absolute Eosinophils 0 , Absolute Basophils 0 02/24/18 1300: Magnesium Cancelled, CBC w Diff Cancelled, WBC Cancelled, RBC Cancelled, Hgb Cancelled, Hct Cancelled, MCV Cancelled, MCH Cancelled, MCHC Cancelled, RDW Cancelled, Plt Count Cancelled, MPV Cancelled 02/24/18 0903: Lactic Acid 1.8 02/24/18 0600: CBC w Diff Cancelled, WBC Cancelled, RBC Cancelled, Hgb Cancelled, Hct Cancelled , MCV Cancelled, MCH Cancelled, MCHC Cancelled, RDW Cancelled, Plt Count Cancelled, MPV Cancelled 02/24/18 0517: Lactic Acid 3.2 H 02/24/18 0517: Anion Gap 15, Estimated GFR 21 L, Glucose 175 H, Calcium 9.0, Phosphorus 7.2 H, Magnesium 2.7 H, Total Bilirubin 1.1, AST 151 H, ALT 79 H, Troponin I 0.23 *H, [id number]-Xlsrdllxxqa Pept 99610 H, Albumin 3.3 L, PT 34.7 H, INR 3.15 H, CBC w Diff NO MAN DIFF REQ, RBC 2.73 L, MCV 92.5, MCH 31.2 H, MCHC 33.8, RDW 15.6 H, MPV 8.6, Gran % 88.2 H, Lymphocytes % 5.5 L, Monocytes % 6.2, Eosinophils % 0, Basophils % 0.1, Absolute Granulocytes 16.4 H, Absolute Lymphocytes 1.0 L, Absolute Monocytes 1.2 H, Absolute Eosinophils 0, Absolute Basophils 0 02/24/18 0443: [id number]-Bxffswccxxe Pept Cancelled 02/24/18 0047: Troponin I 0.23 *H 02/24/18 0047: Lactic Acid 8.8 H 02/23/18 1810: Troponin I 0.19 *H, CBC w Diff NO MAN DIFF REQ, RBC 2.19 L, MCV 94.4, MCH 31.8 H, MCHC 33.7, RDW 15.1 H, MPV 8.5, Gran % 86.2 H, Lymphocytes % 7.3 L, Monocytes % 6.2, Eosinophils % 0, Basophils % 0.3, Absolute Granulocytes 10.9 H , Absolute Lymphocytes 0.9 L, Absolute Monocytes 0.8 H, Absolute Eosinophils 0 , Absolute Basophils 0 Microbiology 02/24 0047 STOOL: Clostridium difficile Toxin A & B - COMP 02/23 2100 UPPER RESP: Surveillance Culture - COMP Recent Imaging Studies: chest x-ray: Persistent stable enlargement of the cardiomediastinal silhouette without any radiographic evidence of CHF/fluid overload. No radiographic evidence of pneumonia Assessment/Plan Assessment/Plan Assessment: 1. Atrial fibrillation, anticoagulated on warfarin 2. Supratherapeutic INR, improved 3. Mild troponin elevation 4. hemorrhagic shock l secondary to likely retroperitoneal hematoma recommendations: * Anticoagulation on hold. status post therapy with vitamin K. * Angiotensin receptor mi and diuretic on hold as well. * Transfuse as needed for Anemia Continue telemetry? Yes
[2018-02-25 14:50] LABS: ABSOLUTE BASOPHIL COUNT 0 /CUMM (0.0-0.2); ABSOLUTE EOSINOPHIL COUNT 0 /CUMM (0.0-0.7); ABSOLUTE GRANULOCYTE CT 18.2 /CUMM (1.4-6.5); ABSOLUTE LYMPH COUNT 0.8 /CUMM (1.2-3.4); ABSOLUTE MONOCYTE COUNT 1.8 /CUMM (0.10-0.60); BASOPHIL % 0.1 % (0.0-2.0); EOSINOPHIL % 0 % (0-5); GRANULOCYTE % 87.5 % (42.2-75.2); MEAN CORPUSCULAR HGB 30.8 PG (27.0-31.0); MEAN CORPUSCULAR HGB CONC 33.9 G/DL (33.0-37.0); MEAN PLATELET VOLUME 8.5 FL (7.4-10.4); PLATELET COUNT 192 /CUMM (130-400); RBC DISTRIBUTION WIDTH 16.4 % (11.5-14.5); RED BLOOD CELL CT 2.32 /CUMM (4.20-5.40); WHITE BLOOD CELL COUNT 20.8 /CUMM (4.8-10.8)
[2018-02-25 15:02] LABS: HEMATOCRIT 21.1 % (37-47)
[2018-02-25 16:00] VITALS: BP 150/64
[2018-02-25 17:06] VITALS: BP 150/64
--- NOTE | 2018-02-25 17:20 | CT SCAN REPORT ---
EXAMINATION: CT ABDOMEN AND PELVIS WITHOUT CONTRAST CLINICAL INFORMATION: Hemorrhage. Dropping hemoglobin and hematocrit. Transfusion required. Evaluate for interval change. ATN COMPARISON: 02/23/18 TECHNIQUE: Multidetector volumetric imaging was performed from the superior aspect of the liver through the pubic symphysis. Sagittal and coronal reformatted images were obtained on the technologist's workstation. 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 Jewelry obscures some of the anatomy. Previous right proximal femoral instrumentation. Visualized lower chest: There are calcifications in the region of the aortic and mitral valve and there is coronary calcification. The central vessels are prominent. There is new bilateral pleural fluid. There is bilateral lung base disease. Interval worsening in the lower chest. LIVER, GALLBLADDER, AND BILIARY TREE: No suspicious focal liver lesion. The liver contour appears smooth. Multiple gallstones. No definite biliary dilation. PANCREAS: No definite mass. SPLEEN: No focal abnormality. ADRENAL GLANDS: The right adrenal gland is normal. The left adrenal gland is displaced ventrally. KIDNEYS AND URETERS: There is no dilation of the intrarenal collecting system on the right. No right renal calculus or suspicious right renal mass. The left kidney is distorted and displaced. There is a heterogeneous hyperdense perinephric hematoma. This extends throughout the perinephric and posterior pararenal spaces into the extraperitoneal space in the deep left pelvis. There is blood in the pelvic recesses. There are fluid levels. This has increased. At the level of the lower pole of the kidney this measures 02/25/18-8.2 x 11.0 cm. 02/23/18-7.5 x 8.7 cm The blood is larger in the extraperitoneal space of the left lower quadrant ventral to the left iliac is and ventral to the distal left psoas and the amount of intraperitoneal blood is new or increased. There is now fluid around the liver and a small amount around the spleen. The tissue planes around the abdominal aorta are maintained. No convincing evidence of hemorrhage into the thigh. BLADDER: Catheter decompresses the urinary bladder GASTROINTESTINAL TRACT: No localized area of colonic wall thickening. No small bowel transition. No definite abnormality of stomach. ABDOMINAL WALL: There is stranding. No definite hernia. LYMPH NODES: There are no measurably enlarged abdominal or pelvic lymph nodes. VASCULAR: There is no abdominal aortic aneurysm. There is extensive atherosclerotic calcification. PELVIC VISCERA: Limited assessment. Calcified uterine fibroid. OSSEOUS STRUCTURES: Artifact related to the right proximal femoral instrumentation. Heterotopic ossification adjacent to the right lesser trochanter. IMPRESSION: There is a large left perinephric and para renal hemorrhage which is increasing and now extends into the extraperitoneal space and intraperitoneal spaces including the pelvis. The left kidney is misshapen and displaced. New worsening abnormality in the lower chest bilaterally. Diagnostic options and management options were briefly discussed with the ordering service. The patient is in renal failure making close correlation necessary regarding risks and benefits. This critical result was discussed with the ordering physician Dr. Bear at 1706 on 02/25/18 and it was ascertained that the content and urgency of the report was understood at the time of direct communication. Dr. Leach was notified electronically at the same time
--- NOTE | 2018-02-25 18:28 | Event Note ---
Event Note Event Note: On 02/25/2018; 2:30 p.m. Follow-up hemoglobin was 7.2. It seems that patient was having continuous bleed despite of the blood transfusion. Differentials were arterial bleed/venous bleed/AV malformation/renal mass. Discussed with Dr. Quintanilla and Dr. Choudhary. Advised for 2 units of blood transfusion and 2 units of FFP followed by repeated blood workup including CBC. We discussed again in detail and decided to do CT abdomen pelvis to see the size of the intra-abdominal bleed. Repeated CT scan did show distorted and displaced left kidney along with heterogeneous hyperdense perinephric hematoma extending to the pelvic recess.The size has been increased. Discussed with radiologist Dr. Leach about intervention in terms of angiography. According to him patient has severe atherosclerosis and conventional angiogram will increase the chances of atherosclerotic plaque rupture, dissection of renal artery. She may need more dye, that can affect the kidney function and lead to worsening kidney function. He advised that patient should undergo CTA and if there is any active bleed than he will redirect patient to IR. Discussed in detail about the patient's situation with the family including daughter Ms. Adamson. They were ready to take the risk of CTA/conventional angiogram. They were aware that there is a risk of kidney injury. They also told us about the patient views regarding further management. According to them, patient is ready to undergo CTA/angiogram but does not want to undergo surgery if needed in the future. According to them if there is any need of surgery then patient will rather change to palliative care/hospice care.
--- NOTE | 2018-02-25 19:32 | CT SCAN REPORT ---
EXAMINATION: CT ANGIOGRAM ABDOMEN AND PELVIS CLINICAL INFORMATION: Supratherapeutic INR. Perinephric hematoma. Decreasing hemoglobin. Enlarging hemorrhage on CT The previous CT findings were discussed with the ordering service. The patient is critically ill in the ICU with renal failure and an enlarging perinephric hematoma. The ordering service determined that the risk benefit ratio supported IV contrast administration for CT angiography COMPARISON: Earlier same day TECHNIQUE: CT angiography of the abdomen and pelvis. Multiple axial images were obtained through the abdomen and pelvis following the administration of 95 mL of Optiray 320 intravenous contrast. Images were reviewed on a dedicated 3-D workstation. DLP: 929 mGy-cm FINDINGS: There is artifact related to positioning the upper extremities Vascular: Abdominal aorta: There is atherosclerotic irregularity. No abdominal aortic aneurysm. No dissection. The tissue planes around the abdominal aorta are maintained. Celiac axis: There is some plaque at the origin of the celiac. The celiac enhances. SMA: The hepatic artery arises from the SMA. There is plaque at the origin of some of the colic branches. Right renal artery: There is at least moderate narrowing at the origin of the right renal artery. Left renal artery: The left renal artery enhances. There is no active extravasation from the left renal artery. JOYA: There is plaque at the origin of the JOYA. The JOYA enhances. Right lower extremity: The right common iliac artery is patent with atherosclerotic plaque. The internal iliac artery is patent. The external iliac artery is patent. The right superficial femoral artery and profunda femoral artery are patent. Left lower extremity: The left common iliac artery is patent. The left internal iliac artery is patent. The left external iliac artery is patent. Left superficial femoral and profunda femoral artery are patent. There is no active extravasation in the left retroperitoneum Venous: The venous system was not enhanced. Nonvascular: No suspicious abnormality demonstrated in the liver, spleen, adrenal glands, pancreas or right kidney. There is a left perinephric, retroperitoneal, and extraperitoneal hemorrhage with hemoperitoneum again demonstrated. There are rim calcifications in the expected region of the gallbladder. There may be a diverticulum in the region of the descending duodenum. There is a urinary bladder catheter. Partially calcified uterine fibroid. No evidence of small bowel obstruction. There is bibasilar pleural and parenchymal disease. Metallic artifact related to right proximal femoral instrumentation. IMPRESSION: There is no evidence of arterial extravasation to identify the source of bleeding related to the known left perinephric, retroperitoneal, extraperitoneal and intraperitoneal hemorrhage. This critical result was discussed with the physician on the housestaff caring for the patient at [facility] at 1918 on 02/25/18 and it was ascertained that the content and urgency of the report was understood at the time of direct communication.
[2018-02-25 23:41] LABS: ABSOLUTE BASOPHIL COUNT 0.1 /CUMM (0.0-0.2); ABSOLUTE EOSINOPHIL COUNT 0 /CUMM (0.0-0.7); ABSOLUTE LYMPH COUNT 0.8 /CUMM (1.2-3.4); ABSOLUTE MONOCYTE COUNT 1.2 /CUMM (0.10-0.60); BASOPHIL % 0.3 % (0.0-2.0); EOSINOPHIL % 0 % (0-5); GRANULOCYTE % 89.3 % (42.2-75.2); HEMATOCRIT 22.9 % (37-47); MEAN CORPUSCULAR HGB 30.2 PG (27.0-31.0); MEAN CORPUSCULAR HGB CONC 34.4 G/DL (33.0-37.0); MEAN CORPUSCULAR VOLUME 87.8 FL (81.0-99.0); MEAN PLATELET VOLUME 8.5 FL (7.4-10.4); PLATELET COUNT 163 /CUMM (130-400); RBC DISTRIBUTION WIDTH 16.6 % (11.5-14.5); WHITE BLOOD CELL COUNT 19.1 /CUMM (4.8-10.8)
[2018-02-26] VITALS: BP 154/58
[2018-02-26 04:32] LABS: ABSOLUTE BASOPHIL COUNT 0.1 /CUMM (0.0-0.2); ABSOLUTE EOSINOPHIL COUNT 0 /CUMM (0.0-0.7); ABSOLUTE GRANULOCYTE CT 16.9 /CUMM (1.4-6.5); ABSOLUTE LYMPH COUNT 0.6 /CUMM (1.2-3.4); ABSOLUTE MONOCYTE COUNT 1.3 /CUMM (0.10-0.60); BASOPHIL % 0.4 % (0.0-2.0); EOSINOPHIL % 0 % (0-5); GRANULOCYTE % 89.4 % (42.2-75.2); HEMATOCRIT 22.9 % (37-47); MEAN CORPUSCULAR HGB 30.7 PG (27.0-31.0); MEAN CORPUSCULAR HGB CONC 34.3 G/DL (33.0-37.0); MEAN CORPUSCULAR VOLUME 89.5 FL (81.0-99.0); MEAN PLATELET VOLUME 8.4 FL (7.4-10.4); PLATELET COUNT 181 /CUMM (130-400); RBC DISTRIBUTION WIDTH 16.7 % (11.5-14.5); RED BLOOD CELL CT 2.56 /CUMM (4.20-5.40); WHITE BLOOD CELL COUNT 18.9 /CUMM (4.8-10.8)
--- NOTE | 2018-02-26 07:24 | PN- Urology ---
Subjective Subjective: Sleepy. Hemodynamically stable. Still requiring transfusions to maintain Hct Objective Vital Signs and I&Os Vital Signs Date Time Temp Pulse Resp B/P B/P Pulse O2 O2 Flow FiO2 Mean Ox Delivery Rate 02/26 0400 96 Nasal 3.0L Cannula 02/26 0000 96 Nasal 3.0L Cannula 02/26 0000 98.3 85 20 154/58 96 Nasal 3.0L Cannula 02/25 2000 91 Nasal 2.0L Cannula 02/25 1706 99.3 90 26 150/64 02/25 1600 95 Nasal 2.0L Cannula 02/25 1600 99.3 90 26 150/64 95 Nasal 2.0L Cannula 02/25 1329 Nasal 2.0L Cannula 02/25 1320 Nasal 2.0L Cannula 02/25 1312 Nasal 2.0L Cannula 02/25 1200 95 Nasal 2.0L Cannula 02/25 0825 97.8 84 20 151/56 96 Nasal 2.0L Cannula 02/25 0800 95 Nasal 2.0L Cannula Intake & Output 02/26 0800 02/26 0000 02/25 1600 02/25 0800 02/25 0000 02/24 1600 Intake Total 711.0 1506 296 314 1463 1195 Output Total 800 325 500 500 250 20 Balance -89.0 1181 20 -380 1610 1175 Intake, Blood 1406 1310 Product Intake, IV 711.0 20 0 250 1045 Intake, Oral 100 500 120 300 150 Number 0 0 0 0 2 Bowel Movements Output, Urine 800 325 500 500 250 20 Abd: LUQ tenderness Genitalia: ayers in place draining clear urine Laboratory Tests 02/26 02/26 0350 0005 Chemistry Sodium (137 - 145 mmol/L) 136 L Potassium (3.5 - 5.1 mmol/L) 4.3 Chloride (98 - 107 mmol/L) 99 Carbon Dioxide (22 - 30 mmol/L) 20 L Anion Gap (5 - 16) 18 H BUN (7 - 17 mg/dL) 71 H Creatinine (0.5 - 1.0 mg/dL) 2.4 H Estimated GFR (>60 ml/min) 19 L Glucose (65 - 99 mg/dL) 186 H Calcium (8.4 - 10.2 mg/dL) 8.9 Phosphorus (2.5 - 4.5 mg/dL) 4.7 H Magnesium (1.6 - 2.3 mg/dL) 2.8 H Total Bilirubin (0.2 - 1.3 mg/dL) 1.4 H AST (14 - 36 U/L) 63 H ALT (9 - 52 U/L) 57 H Albumin (3.5 - 5.0 g/dL) 3.4 L Hematology CBC w Diff MAN DIFF ORDERED Cancelled WBC (4.8 - 10.8 /CUMM) 18.9 H Cancelled RBC (4.20 - 5.40 /CUMM) 2.56 L Cancelled Hgb (12.0 - 16.0 G/DL) 7.9 L Cancelled Hct (37 - 47 %) 22.9 L Cancelled MCV (81.0 - 99.0 FL) 89.5 Cancelled MCH (27.0 - 31.0 PG) 30.7 Cancelled MCHC (33.0 - 37.0 G/DL) 34.3 Cancelled RDW (11.5 - 14.5 %) 16.7 H Cancelled Plt Count (130 - 400 /CUMM) 181 Cancelled MPV (7.4 - 10.4 FL) 8.4 Cancelled Gran % (42.2 - 75.2 %) 89.4 H Lymphocytes % (20.5 - 51.1 %) 3.2 L Monocytes % (1.7 - 9.3 %) 7.0 Eosinophils % (0 - 5 %) 0 Basophils % (0.0 - 2.0 %) 0.4 Absolute Granulocytes (1.4 - 6.5 /CUMM) 16.9 H Absolute Lymphocytes (1.2 - 3.4 /CUMM) 0.6 L Absolute Monocytes (0.10 - 0.60 /CUMM) 1.3 H Absolute Eosinophils (0.0 - 0.7 /CUMM) 0 Absolute Basophils (0.0 - 0.2 /CUMM) 0.1 Platelet Estimate (ADEQUATE) ADEQUATE Poikilocytosis 1+ Basophilic Stippling 1+ Anisocytosis 1+ Ovalocytes 1+ 02/25 02/25 2320 1430 Chemistry Sodium (137 - 145 mmol/L) 133 L Potassium (3.5 - 5.1 mmol/L) 4.2 Chloride (98 - 107 mmol/L) 99 Carbon Dioxide (22 - 30 mmol/L) 22 Anion Gap (5 - 16) 12 BUN (7 - 17 mg/dL) 64 H Creatinine (0.5 - 1.0 mg/dL) 2.6 H Estimated GFR (>60 ml/min) 18 L Glucose (65 - 99 mg/dL) 167 H Calcium (8.4 - 10.2 mg/dL) 8.8 Phosphorus (2.5 - 4.5 mg/dL) 4.7 H Magnesium (1.6 - 2.3 mg/dL) 2.9 H Total Bilirubin (0.2 - 1.3 mg/dL) 1.2 AST (14 - 36 U/L) 101 H ALT (9 - 52 U/L) 71 H Albumin (3.5 - 5.0 g/dL) 3.3 L Hematology CBC w Diff MAN DIFF ORDERED MAN DIFF ORDERED WBC (4.8 - 10.8 /CUMM) 19.1 H 20.8 H RBC (4.20 - 5.40 /CUMM) 2.60 L 2.32 L Hgb (12.0 - 16.0 G/DL) 7.9 L 7.2 *L Hct (37 - 47 %) 22.9 L 21.1 L MCV (81.0 - 99.0 FL) 87.8 91.0 MCH (27.0 - 31.0 PG) 30.2 30.8 MCHC (33.0 - 37.0 G/DL) 34.4 33.9 RDW (11.5 - 14.5 %) 16.6 H 16.4 H Plt Count (130 - 400 /CUMM) 163 192 MPV (7.4 - 10.4 FL) 8.5 8.5 Gran % (42.2 - 75.2 %) 89.3 H 87.5 H Lymphocytes % (20.5 - 51.1 %) 3.9 L 3.7 L Monocytes % (1.7 - 9.3 %) 6.5 8.7 Eosinophils % (0 - 5 %) 0 0 Basophils % (0.0 - 2.0 %) 0.3 0.1 Absolute Granulocytes (1.4 - 6.5 /CUMM) 17.0 H 18.2 H Segmented Neutrophils (42.2 - 75.2 %) 89 H Band Neutrophils (0.0 - 5.0 %) 5 Absolute Lymphocytes (1.2 - 3.4 /CUMM) 0.8 L 0.8 L Lymphocytes (20.5 - 51.1 %) 2 L Monocytes (1.7 - 9.3 %) 4 Absolute Monocytes (0.10 - 0.60 /CUMM) 1.2 H 1.8 H Absolute Eosinophils (0.0 - 0.7 /CUMM) 0 0 Absolute Basophils (0.0 - 0.2 /CUMM) 0.1 0 Platelet Estimate (ADEQUATE) ADEQUATE VERIFIED BY SMEAR Normocytic RBCs VERIFIED Normochromic RBCs VERIFIED Polychromasia 1+ CT of abd and pelvis: L retroperitoneal hematoma has increased in size compared to original study CTA done per radiology: Hematoma confirmed. No active site of bleeding seen Assessment/Plan Assessment/Plan Imp: 1. L perinephric/retroperitoneal hematoma originating from posterolateral aspect of L kidney in setting of coagulopathy at onset. Still requiring transfusion but hemodynamically stable 2. MONSERRAT due to ATN from hypotension. Improving Plan: 1. Continue to transfuse as needed and maintain normal coags. This type of bleed usually resolves with conservative management. Surgery for this would result in nephrectomy
[2018-02-26 08:00] VITALS: BP 144/52
--- NOTE | 2018-02-26 08:05 | PN- Housestaff ---
Objective Last 24 Hrs of Vital Signs/I&O Vital Signs Date Time Temp Pulse Resp B/P B/P Pulse O2 O2 Flow FiO2 Mean Ox Delivery Rate 02/26 0400 96 Nasal 3.0L Cannula 02/26 0000 96 Nasal 3.0L Cannula 02/26 0000 98.3 85 20 154/58 96 Nasal 3.0L Cannula 02/25 2000 91 Nasal 2.0L Cannula 02/25 1706 99.3 90 26 150/64 02/25 1600 95 Nasal 2.0L Cannula 02/25 1600 99.3 90 26 150/64 95 Nasal 2.0L Cannula 02/25 1329 Nasal 2.0L Cannula 02/25 1320 Nasal 2.0L Cannula 02/25 1312 Nasal 2.0L Cannula 02/25 1200 95 Nasal 2.0L Cannula 02/25 0825 97.8 84 20 151/56 96 Nasal 2.0L Cannula Intake & Output 02/26 1600 02/26 0800 06 0000 Intake Total 711.0 1506 Output Total 800 325 Balance -89.0 1181 Intake, Blood 1406 Product Intake, IV 711.0 Intake, Oral 100 Number 0 0 Bowel Movements Output, Urine 800 325 Assessment/Plan Assessment: Vital signs-afebrile, heart rate in the range of 80-90, atrial fibrillation, pressure 146/57, oxygen by nasal cannula 3 L saturating 97%. Intake/output 20 383/1225. Assessment and plan- Repeat CBC every 4 hourly Repeat PT/INR Consulting Request: Consulting Specialty: Nephrology
[2018-02-26 09:59] LABS: ABSOLUTE BASOPHIL COUNT 0 /CUMM (0.0-0.2); ABSOLUTE EOSINOPHIL COUNT 0 /CUMM (0.0-0.7); ABSOLUTE GRANULOCYTE CT 16.8 /CUMM (1.4-6.5); ABSOLUTE LYMPH COUNT 0.6 /CUMM (1.2-3.4); ABSOLUTE MONOCYTE COUNT 1.5 /CUMM (0.10-0.60); BASOPHIL % 0.1 % (0.0-2.0); EOSINOPHIL % 0 % (0-5); MEAN CORPUSCULAR HGB 30.3 PG (27.0-31.0); MEAN CORPUSCULAR HGB CONC 34.2 G/DL (33.0-37.0); MEAN CORPUSCULAR VOLUME 88.6 FL (81.0-99.0); MEAN PLATELET VOLUME 8.2 FL (7.4-10.4); RBC DISTRIBUTION WIDTH 17.1 % (11.5-14.5); RED BLOOD CELL CT 2.44 /CUMM (4.20-5.40)
[2018-02-26 10:03] LABS: HEMATOCRIT 21.6 % (37-47)
[2018-02-26 10:20] LABS: GRANULOCYTE % 88.8 % (42.2-75.2); PLATELET COUNT 183 /CUMM (130-400)
--- NOTE | 2018-02-26 10:57 | PN- Resident CRCU ---
Chema TERRY,Tao 02/26/18 1057: Subjective HPI/CRCU Issues: Patient is seen and examined at the bedside. Patient was drowsy but responding to all verbal command. She denies for any active complaints. We decided to decrease the pain medicine. 24 Hour Events: Vital signs-afebrile, heart rate in the range of 80-90, atrial fibrillation, pressure 146/57, oxygen by nasal cannula 3 L saturating 97%. Intake/output 20 383/1225. Objective Vital Signs & I&O Last 8 Hrs of Vitals and I&O: Intake & Output 02/26 1600 Intake Total Output Total Balance Patient 98 kg Weight Exam General Appearance: no apparent distress, awake, comfortable, sedated Head: atraumatic, normal appearance Neck: supple Respiratory: normal breath sounds, chest non-tender Cardiovascular: regular rate/rhythm Gastrointestinal: soft, tenderness, distended, bowel sounds positive Extremities: normal inspection, normal capillary refill Current Medications: Current Medications Sig/Mauro Start time Last Medication Dose Route Stop Time Status Admin Al Hydroxide/Mg 30 ML Q4-6 PRN PRN 02/26 0930 DC Hydroxide PO Hydromorphone HCl 0.2 MG Q6P PRN 02/26 0815 AC IV Hydromorphone HCl 0.2 MG Q6 02/25 2359 DC 02/26 IV 0526 Hydromorphone HCl 0.4 MG Q6 02/25 1200 DC 02/25 IV 1747 Insulin Aspart 0 TIDAC 02/25 1200 AC 02/26 SC 1151 Levothyroxine Sodium 0.075 MG DAILY 02/24 1131 AC 02/26 PO 0917 Ondansetron HCl 4 MG Q6P PRN 02/24 1045 AC 02/24 IV 1644 Polyethylene Glycol 17 GM ONCE ONE 02/255 DC 02/25 PO 02/25 2116 2234 Simethicone 40 MG Q4P PRN 02/26 1100 AC 02/26 PO 1140 Sodium Chloride 1,000 ML Q20H 02/25 1900 DC 02/25 IV 2252 Tramadol HCl 50 MG Q12P PRN 02/26 0945 AC PO Tramadol HCl 50 MG BID 02/25 0900 DC 02/[address] Scan Findings: There is a large left perinephric and para renal hemorrhage which is increasing and now extends into the extraperitoneal space and intraperitoneal spaces including the pelvis. The left kidney is misshapen and displaced. New worsening abnormality in the lower chest bilaterally. Impression/Plan Impression/Problem List Impression: Patient is an 78-year-old female with significant past medical history of hypertension, hyperlipidemia, hypothyroidism, type 2 diabetes, obstructive sleep apnea on CPAP, hereditary Vitiligo, chronic atrial fibrillation on Coumadin, presented after an episode of emotional stress ( of grandson), leading to syncopal episode and left flank pain and found to have left-sided retroperitoneal/perinephric hematoma. Vital signs-afebrile, heart rate in the range of 80-90, atrial fibrillation, pressure 146/57, oxygen by nasal cannula 3 L saturating 97%. Intake/output 20 383/1225. Assessment and plan- Left retroperitoneal hematoma adjacent to left mid to lower kidney/left perinephric space, hemodynamically stable - CTA neg for arterial bleed * Goal of Hb >8; incentive spiromery, ALPS * CBC every 4 hourly * monitor PT/INR * Her pain has been improved and denies for any nausea. * We stopped tramadol amd dose of inj Dilaudid 0.2 mg IV every 6 hourly as needed. * We will avoid nephrotoxic medications * Patient is awair of all her situation and want to have treatment in the [facility], doesnt want surgery, and if needed than change care to palliative/comfort care. * We will stop IV fluids. * f/u Hb is 7.4. we will transfuse 1 units of PRBC. Supratherapeutic INR -resolved * Today's PT/INR is 1.2 * We will regularly monitor PT/INR * Completed course of Tab Vit K 10mg x 3 doses * Watch for bleeding. Type II IA, Demand ischemia - * Her troponins was stabilized 0.23, she is asymptomatic. * Follow-up echocardiogram -LVEF 60-65, no regional wall motion abnormality, RVSP 60. * Her last echocardiogram shows ejection fraction of 65%(2012). * We'll follow the cardiology recommendation Acute kidney injury, anuric converted to oliguric possible ATN- Cr -2.5 ( improved) * Will follow nephrology recommendations * Strict intake output charting. * Continue Christianson catheterization. * Avoid nephrotoxic medication including NSAIDs Atrial fibrillation with controlled ventricular rate, Coumadin on hold - * We will continue to hold anticoagulant * If needed then we will give FFP according to the INR and hemoglobin status. * Patient is at high risk of stroke,continue ALPS. Type 2 diabetes mellitus- * Blood sugar charting 3 times daily/at bedtime. * NovoLog according to the sliding scale. * Clear liquid diet Chronic medical condition-hypothyroidism, hypertension, hyperlipidemia, obstructive sleep apnea- * Continue tablet levothyroxin 75mcg daily * We will hold antihypertensive for now until she stabilized * CPAP while sleeping. CODE STATUS -DNR/DNI. DVT prophylaxis -ALPS, avoid Coumadin, heparin Diet -clear liquid. Problem List: 1. Supratherapeutic INR 2. Retroperitoneal bleed Pain Ratin Pain Location: left side of abdoman Tomorrow's Labs & Rationales: f/u CBC, ICU bundle Plan DVT/Prophylaxis: Jonas Madera MD 02/26/18 1101: Attending MD Review Statement Attending Sign Off Attending Cosign Statement: I have: examined this patient, reviewed avalbl EMR data, personally reviewd images, discussd w/resident/PA/AUDITOR SUPERVISOR, discussed mgmt plan w/mariusz, discussed mgmt plan w/CM, discussed mgmt plan w/pt, agreed w/resident/PA/AUDITOR SUPERVISOR, amended to note. Other Findings: IJonas M.D. have examined this patient, reviewed available EMR data, personally reviewed images, discussed with resident/PA/AUDITOR SUPERVISOR, discussed management plan with housestaff and nursing staff, discussed managment plan all of healthcare providers, discussed management plan with patient and/or family, agreed with resident/PA/AUDITOR SUPERVISOR. The past history and parts of the chart have been autopopulated. Impression 78 year old woman * left sided retroperitoneal localized bleed * acute blood loss anemia * MONSERRAT/ATN * a.fib Plan -a/c held, risk understood for lack of a/c for a.fib in setting of acute anemia/ bleed -cardiology, nephorlogy, urology consultations reviewed and will follow recommendations -monitor cbc, coags -blood transfusion - goal hgb >8 -monitor urine output -pain control -incentive spirometry -no brisk bleed was seen on CTA, pt has decided against any surgical interventions, she would agree with conservative medical management at this time ALPS for DVT prophylaxis at all times TTS 35 min Discussed with patient, housestaff, family at bedside
--- NOTE | 2018-02-26 12:37 | PN- Nephrology ---
Assessment/Plan Nephrology Assessment: MONSERRAT - 2/2 ATN in the setting of hypotension from L perirenal bleed while on outpatient ARB/Lasix. Renal function improving a bit. Should note that she needed to receive contrast for an emergent CTA last night - at risk for contrast induced nephropathy in the next 24-48hrs. L perirenal bleed - Worsening on CT imaging but no arterial bleeding on CTA. No clear mass on non-contrast CT imaging. Once she stabilizes, should probably have more dedicated imaging (preferably MR once renal function back to baseline) to see exactly what may have led to the bleeding. Suggestion: -Would hold off on further IVF at this time given pleural effusions -Cont to closely monitor Hg and hemodynamics -Will eventually need more dedicated renal imaging once clinically back to baseline (preferably MR when renal function back to baseline) -Cont to hold ARB/Metformin Please call [phone] with ?'s Subjective Subjective: Hg continued to drop prompting repeat CT - increased hematoma B/l pleural fluid on CT Underwent CTA - no bleed SCr 2.4 Pt feeling tired Objective Vital Signs and I&Os Vital Signs Date Time Temp Pulse Resp B/P B/P Pulse O2 O2 Flow FiO2 Mean Ox Delivery Rate 02/26 1200 CPAP 02/26 0800 Nasal 3.0L Cannula 02/26 0800 97.8 81 16 144/52 96 Nasal 3.0L Cannula 02/26 0400 96 Nasal 3.0L Cannula 02/26 0000 96 Nasal 3.0L Cannula 02/26 0000 98.3 85 20 154/58 96 Nasal 3.0L Cannula 02/25 2000 91 Nasal 2.0L Cannula 02/25 1706 99.3 90 26 150/64 02/25 1600 95 Nasal 2.0L Cannula 02/25 1600 99.3 90 26 150/64 95 Nasal 2.0L Cannula 02/25 1329 Nasal 2.0L Cannula 02/25 1320 Nasal 2.0L Cannula 02/25 1312 Nasal 2.0L Cannula Intake & Output 02/26 1600 02/26 0400 02/25 1600 02/25 0400 02/24 1600 02/24 0400 Intake Total 711.0 0456 543 3148 2421 2250 Output Total 595 413 6289 250 230 200 Balance -89.0 1181 -360 1610 2191 2050 Intake, Blood 1406 1310 694 650 Product Intake, IV 711.0 20 250 1577 1600 Intake, Oral 100 620 300 150 0 Number 0 0 0 0 5 2 Bowel Movements Output, 150 Emesis Output, Urine 210 527 5478 250 80 200 Patient 216 lb 216 lb Weight Weight Bed scale Measurement Method Physical Exam: Gen - weak appearing HEENT - supple CV - RRR, no m/r/g Chest - clear, no w/r/r Abd - soft, NTND Ext - warm, no edema Neuro - drowsy but oriented, grossly nonfocal Current Medications: Current Medications Sig/Mauro Start time Last Medication Dose Route Stop Time Status Admin Al Hydroxide/Mg 30 ML Q4-6 PRN PRN 02/26 0930 DC Hydroxide PO Hydromorphone HCl 0.2 MG Q6P PRN 02/26 0815 AC IV Hydromorphone HCl 0.2 MG Q6 02/25 2359 LA 02/26 IV 0526 Hydromorphone HCl 0.4 MG Q6 02/25 1200 DC 02/25 IV 1747 Insulin Aspart 0 TIDAC 02/25 1200 02/26 SC 1151 Levothyroxine Sodium 0.075 MG DAILY 02/24 1131 AC 02/26 PO 0917 Ondansetron HCl 4 MG Q6P PRN 02/24 1045 AC 02/24 IV 1644 Polyethylene Glycol 17 GM ONCE ONE 02/25 2115 DC 02/25 PO 02/26 2116 2234 Simethicone 40 MG Q4P PRN 02/26 1100 AC 02/26 PO 1140 Sodium Chloride 1,000 ML Q20H 02/25 1900 AC 02/25 IV 2252 Tramadol HCl 50 MG Q12P PRN 02/26 0945 AC PO Tramadol HCl 50 MG BID 02/25 0900 LA 02/26 PO 0921 Results Pertinent Lab Results: Laboratory Tests 02/26 02/26 0915 0905 Coagulation PT (9.4 - 12.5 SEC) 14.0 H INR (0.90 - 1.19) 1.28 H Hematology CBC w Diff NO MAN DIFF REQ WBC (4.8 - 10.8 /CUMM) 19.0 H RBC (4.20 - 5.40 /CUMM) 2.44 L Hgb (12.0 - 16.0 G/DL) 7.4 *L Hct (37 - 47 %) 21.6 L MCV (81.0 - 99.0 FL) 88.6 MCH (27.0 - 31.0 PG) 30.3 MCHC (33.0 - 37.0 G/DL) 34.2 RDW (11.5 - 14.5 %) 17.1 H Plt Count (130 - 400 /CUMM) 183 MPV (7.4 - 10.4 FL) 8.2 Gran % (42.2 - 75.2 %) 88.8 H Lymphocytes % (20.5 - 51.1 %) 3.0 L Monocytes % (1.7 - 9.3 %) 8.1 Eosinophils % (0 - 5 %) 0 Basophils % (0.0 - 2.0 %) 0.1 Absolute Granulocytes (1.4 - 6.5 /CUMM) 16.8 H Absolute Lymphocytes (1.2 - 3.4 /CUMM) 0.6 L Absolute Monocytes (0.10 - 0.60 /CUMM) 1.5 H Absolute Eosinophils (0.0 - 0.7 /CUMM) 0 Absolute Basophils (0.0 - 0.2 /CUMM) 0 12 02/26 0350 0005 Chemistry Sodium (137 - 145 mmol/L) 136 L Potassium (3.5 - 5.1 mmol/L) 4.3 Chloride (98 - 107 mmol/L) 99 Carbon Dioxide (22 - 30 mmol/L) 20 L Anion Gap (5 - 16) 18 H BUN (7 - 17 mg/dL) 71 H Creatinine (0.5 - 1.0 mg/dL) 2.4 H Estimated GFR (>60 ml/min) 19 L Glucose (65 - 99 mg/dL) 186 H Calcium (8.4 - 10.2 mg/dL) 8.9 Phosphorus (2.5 - 4.5 mg/dL) 4.7 H Magnesium (1.6 - 2.3 mg/dL) 2.8 H Total Bilirubin (0.2 - 1.3 mg/dL) 1.4 H AST (14 - 36 U/L) 63 H ALT (9 - 52 U/L) 57 H Albumin (3.5 - 5.0 g/dL) 3.4 L Hematology CBC w Diff MAN DIFF ORDERED Cancelled WBC (4.8 - 10.8 /CUMM) 18.9 H Cancelled RBC (4.20 - 5.40 /CUMM) 2.56 L Cancelled Hgb (12.0 - 16.0 G/DL) 7.9 L Cancelled Hct (37 - 47 %) 22.9 L Cancelled MCV (81.0 - 99.0 FL) 89.5 Cancelled MCH (27.0 - 31.0 PG) 30.7 Cancelled MCHC (33.0 - 37.0 G/DL) 34.3 Cancelled RDW (11.5 - 14.5 %) 16.7 H Cancelled Plt Count (130 - 400 /CUMM) 181 Cancelled MPV (7.4 - 10.4 FL) 8.4 Cancelled Gran % (42.2 - 75.2 %) 89.4 H Lymphocytes % (20.5 - 51.1 %) 3.2 L Monocytes % (1.7 - 9.3 %) 7.0 Eosinophils % (0 - 5 %) 0 Basophils % (0.0 - 2.0 %) 0.4 Absolute Granulocytes (1.4 - 6.5 /CUMM) 16.9 H Absolute Lymphocytes (1.2 - 3.4 /CUMM) 0.6 L Absolute Monocytes (0.10 - 0.60 /CUMM) 1.3 H Absolute Eosinophils (0.0 - 0.7 /CUMM) 0 Absolute Basophils (0.0 - 0.2 /CUMM) 0.1 Platelet Estimate (ADEQUATE) ADEQUATE Poikilocytosis 1+ Basophilic Stippling 1+ Anisocytosis 1+ Ovalocytes 1+ 02/25 02/25 2320 1430 Chemistry Sodium (137 - 145 mmol/L) 133 L Potassium (3.5 - 5.1 mmol/L) 4.2 Chloride (98 - 107 mmol/L) 99 Carbon Dioxide (22 - 30 mmol/L) 22 Anion Gap (5 - 16) 12 BUN (7 - 17 mg/dL) 64 H Creatinine (0.5 - 1.0 mg/dL) 2.6 H Estimated GFR (>60 ml/min) 18 L Glucose (65 - 99 mg/dL) 167 H Calcium (8.4 - 10.2 mg/dL) 8.8 Phosphorus (2.5 - 4.5 mg/dL) 4.7 H Magnesium (1.6 - 2.3 mg/dL) 2.9 H Total Bilirubin (0.2 - 1.3 mg/dL) 1.2 AST (14 - 36 U/L) 101 H ALT (9 - 52 U/L) 71 H Albumin (3.5 - 5.0 g/dL) 3.3 L Hematology CBC w Diff MAN DIFF ORDERED MAN DIFF ORDERED WBC (4.8 - 10.8 /CUMM) 19.1 H 20.8 H RBC (4.20 - 5.40 /CUMM) 2.60 L 2.32 L Hgb (12.0 - 16.0 G/DL) 7.9 L 7.2 *L Hct (37 - 47 %) 22.9 L 21.1 L MCV (81.0 - 99.0 FL) 87.8 91.0 MCH (27.0 - 31.0 PG) 30.2 30.8 MCHC (33.0 - 37.0 G/DL) 34.4 33.9 RDW (11.5 - 14.5 %) 16.6 H 16.4 H Plt Count (130 - 400 /CUMM) 163 192 MPV (7.4 - 10.4 FL) 8.5 8.5 Gran % (42.2 - 75.2 %) 89.3 H 87.5 H Lymphocytes % (20.5 - 51.1 %) 3.9 L 3.7 L Monocytes % (1.7 - 9.3 %) 6.5 8.7 Eosinophils % (0 - 5 %) 0 0 Basophils % (0.0 - 2.0 %) 0.3 0.1 Absolute Granulocytes (1.4 - 6.5 /CUMM) 17.0 H 18.2 H Segmented Neutrophils (42.2 - 75.2 %) 89 H Band Neutrophils (0.0 - 5.0 %) 5 Absolute Lymphocytes (1.2 - 3.4 /CUMM) 0.8 L 0.8 L Lymphocytes (20.5 - 51.1 %) 2 L Monocytes (1.7 - 9.3 %) 4 Absolute Monocytes (0.10 - 0.60 /CUMM) 1.2 H 1.8 H Absolute Eosinophils (0.0 - 0.7 /CUMM) 0 0 Absolute Basophils (0.0 - 0.2 /CUMM) 0.1 0 Platelet Estimate (ADEQUATE) ADEQUATE VERIFIED BY SMEAR Normocytic RBCs VERIFIED Normochromic RBCs VERIFIED Polychromasia 1+ 06/11 06/10 6299 2220 Chemistry Sodium (137 - 145 mmol/L) 140 138 Potassium (3.5 - 5.1 mmol/L) 4.5 4.9 Chloride (98 - 107 mmol/L) 102 102 Carbon Dioxide (22 - 30 mmol/L) 22 21 L Anion Gap (5 - 16) 16 15 BUN (7 - 17 mg/dL) 65 H 59 H Creatinine (0.5 - 1.0 mg/dL) 2.8 H 2.8 H Estimated GFR (>60 ml/min) 16 L 16 L Glucose (65 - 99 mg/dL) 149 H 154 H Calcium (8.4 - 10.2 mg/dL) 8.7 8.6 Phosphorus (2.5 - 4.5 mg/dL) 5.8 H 6.3 H Magnesium (1.6 - 2.3 mg/dL) 2.9 H 2.9 H Total Bilirubin (0.2 - 1.3 mg/dL) 0.9 1.0 AST (14 - 36 U/L) 142 H 151 H ALT (9 - 52 U/L) 72 H 73 H Albumin (3.5 - 5.0 g/dL) 3.4 L 3.4 L Coagulation PT (9.4 - 12.5 SEC) 17.7 H 18.5 H INR (0.90 - 1.19) 1.62 H 1.69 H Hematology CBC w Diff MAN DIFF ORDERED NO MAN DIFF REQ WBC (4.8 - 10.8 /CUMM) 18.7 H 16.0 H RBC (4.20 - 5.40 /CUMM) 2.57 L 2.76 L Hgb (12.0 - 16.0 G/DL) 7.9 L 8.4 L Hct (37 - 47 %) 23.4 L 24.9 L MCV (81.0 - 99.0 FL) 91.0 90.3 MCH (27.0 - 31.0 PG) 30.7 30.4 MCHC (33.0 - 37.0 G/DL) 33.7 33.7 RDW (11.5 - 14.5 %) 16.4 H 15.6 H Plt Count (130 - 400 /CUMM) 188 165 MPV (7.4 - 10.4 FL) 9.1 8.5 Gran % (42.2 - 75.2 %) 86.9 H 87.2 H Lymphocytes % (20.5 - 51.1 %) 4.5 L 4.6 L Monocytes % (1.7 - 9.3 %) 8.6 8.1 Eosinophils % (0 - 5 %) 0 0.1 Basophils % (0.0 - 2.0 %) 0 0 Absolute Granulocytes (1.4 - 6.5 /CUMM) 16.2 H 14.0 H Segmented Neutrophils (42.2 - 75.2 %) 80 H Band Neutrophils (0.0 - 5.0 %) 2 Absolute Lymphocytes (1.2 - 3.4 /CUMM) 0.8 L 0.7 L Lymphocytes (20.5 - 51.1 %) 6 L Monocytes (1.7 - 9.3 %) 12 H Absolute Monocytes (0.10 - 0.60 /CUMM) 1.6 H 1.3 H Absolute Eosinophils (0.0 - 0.7 /CUMM) 0 0 Absolute Basophils (0.0 - 0.2 /CUMM) 0 0 Platelet Estimate (ADEQUATE) ADEQUATE Polychromasia 1+ Poikilocytosis 1+ Basophilic Stippling 1+ Ovalocytes 1+ Other Body Source Fld Total RBCs Counted (%) 100 06/10 06 06 1330 1330 1300 Chemistry Sodium (137 - 145 mmol/L) 140 Potassium (3.5 - 5.1 mmol/L) 5.1 Chloride (98 - 107 mmol/L) 105 Carbon Dioxide (22 - 30 mmol/L) 22 Anion Gap (5 - 16) 13 BUN (7 - 17 mg/dL) 58 H Creatinine (0.5 - 1.0 mg/dL) 2.6 H Estimated GFR (>60 ml/min) 18 L Glucose (65 - 99 mg/dL) 140 H Calcium (8.4 - 10.2 mg/dL) 8.3 L Phosphorus (2.5 - 4.5 mg/dL) 6.7 H Magnesium (1.6 - 2.3 mg/dL) 2.8 H Cancelled Total Bilirubin (0.2 - 1.3 mg/dL) 0.6 AST (14 - 36 U/L) 147 H ALT (9 - 52 U/L) 74 H Troponin I (< 0.11 ng/ml) Cancelled 0.23 *H Albumin (3.5 - 5.0 g/dL) 3.0 L Hematology CBC w Diff NO MAN DIFF REQ Cancelled WBC (4.8 - 10.8 /CUMM) 15.3 H Cancelled RBC (4.20 - 5.40 /CUMM) 2.22 L Cancelled Hgb (12.0 - 16.0 G/DL) 7.0 *L Cancelled Hct (37 - 47 %) 20.5 L Cancelled MCV (81.0 - 99.0 FL) 92.5 Cancelled MCH (27.0 - 31.0 PG) 31.4 H Cancelled MCHC (33.0 - 37.0 G/DL) 34.0 Cancelled RDW (11.5 - 14.5 %) 16.3 H Cancelled Plt Count (130 - 400 /CUMM) 193 Cancelled MPV (7.4 - 10.4 FL) 8.8 Cancelled Gran % (42.2 - 75.2 %) 85.7 H Lymphocytes % (20.5 - 51.1 %) 6.3 L Monocytes % (1.7 - 9.3 %) 7.9 Eosinophils % (0 - 5 %) 0.1 Basophils % (0.0 - 2.0 %) 0 Absolute Granulocytes (1.4 - 6.5 /CUMM) 13.1 H Absolute Lymphocytes (1.2 - 3.4 /CUMM) 1.0 L Absolute Monocytes (0.10 - 0.60 /CUMM) 1.2 H Absolute Eosinophils (0.0 - 0.7 /CUMM) 0 Absolute Basophils (0.0 - 0.2 /CUMM) 0 02/24 02/24 02/24 0903 0600 0517 Chemistry Potassium (3.5 - 5.1 mmol/L) 5.2 H Lactic Acid (0.7 - 2.1 mmol/L) 1.8 3.2 H Hematology CBC w Diff Cancelled WBC Cancelled RBC Cancelled Hgb Cancelled Hct Cancelled MCV Cancelled MCH Cancelled MCHC Cancelled RDW Cancelled Plt Count Cancelled MPV Cancelled 02/24 02/24 02/24 0517 0443 0047 Chemistry Sodium (137 - 145 mmol/L) 137 Potassium (3.5 - 5.1 mmol/L) 5.2 H Chloride (98 - 107 mmol/L) 103 Carbon Dioxide (22 - 30 mmol/L) 19 L Anion Gap (5 - 16) 15 BUN (7 - 17 mg/dL) 52 H Creatinine (0.5 - 1.0 mg/dL) 2.2 H Estimated GFR (>60 ml/min) 21 L Glucose (65 - 99 mg/dL) 175 H Calcium (8.4 - 10.2 mg/dL) 9.0 Phosphorus (2.5 - 4.5 mg/dL) 7.2 H Magnesium (1.6 - 2.3 mg/dL) 2.7 H Total Bilirubin (0.2 - 1.3 mg/dL) 1.1 AST (14 - 36 U/L) 151 H ALT (9 - 52 U/L) 79 H Troponin I (< 0.11 ng/ml) 0.23 *H 0.23 *H Mxz-L-Rohypdccouy Pept (<125 pg/mL) 56284 H Cancelled Albumin (3.5 - 5.0 g/dL) 3.3 L Coagulation PT (9.4 - 12.5 SEC) 34.7 H INR (0.90 - 1.19) 3.15 H Hematology CBC w Diff NO MAN DIFF REQ WBC (4.8 - 10.8 /CUMM) 18.6 H RBC (4.20 - 5.40 /CUMM) 2.73 L Hgb (12.0 - 16.0 G/DL) 8.5 L Hct (37 - 47 %) 25.3 L MCV (81.0 - 99.0 FL) 92.5 MCH (27.0 - 31.0 PG) 31.2 H MCHC (33.0 - 37.0 G/DL) 33.8 RDW (11.5 - 14.5 %) 15.6 H Plt Count (130 - 400 /CUMM) 198 MPV (7.4 - 10.4 FL) 8.6 Gran % (42.2 - 75.2 %) 88.2 H Lymphocytes % (20.5 - 51.1 %) 5.5 L Monocytes % (1.7 - 9.3 %) 6.2 Eosinophils % (0 - 5 %) 0 Basophils % (0.0 - 2.0 %) 0.1 Absolute Granulocytes (1.4 - 6.5 /CUMM) 16.4 H Absolute Lymphocytes (1.2 - 3.4 /CUMM) 1.0 L Absolute Monocytes (0.10 - 0.60 /CUMM) 1.2 H Absolute Eosinophils (0.0 - 0.7 /CUMM) 0 Absolute Basophils (0.0 - 0.2 /CUMM) 0 02/24 02/23 0047 1810 Chemistry Lactic Acid (0.7 - 2.1 mmol/L) 8.8 H Troponin I (< 0.11 ng/ml) 0.19 *H Hematology CBC w Diff NO MAN DIFF REQ WBC (4.8 - 10.8 /CUMM) 12.7 H RBC (4.20 - 5.40 /CUMM) 2.19 L Hgb (12.0 - 16.0 G/DL) 7.0 *L Hct (37 - 47 %) 20.7 L MCV (81.0 - 99.0 FL) 94.4 MCH (27.0 - 31.0 PG) 31.8 H MCHC (33.0 - 37.0 G/DL) 33.7 RDW (11.5 - 14.5 %) 15.1 H Plt Count (130 - 400 /CUMM) 266 MPV (7.4 - 10.4 FL) 8.5 Gran % (42.2 - 75.2 %) 86.2 H Lymphocytes % (20.5 - 51.1 %) 7.3 L Monocytes % (1.7 - 9.3 %) 6.2 Eosinophils % (0 - 5 %) 0 Basophils % (0.0 - 2.0 %) 0.3 Absolute Granulocytes (1.4 - 6.5 /CUMM) 10.9 H Absolute Lymphocytes (1.2 - 3.4 /CUMM) 0.9 L Absolute Monocytes (0.10 - 0.60 /CUMM) 0.8 H Absolute Eosinophils (0.0 - 0.7 /CUMM) 0 Absolute Basophils (0.0 - 0.2 /CUMM) 0 02/23 02/23 1452 1403 Chemistry Sodium (137 - 145 mmol/L) 135 L Potassium (3.5 - 5.1 mmol/L) 4.0 Chloride (98 - 107 mmol/L) 100 Carbon Dioxide (22 - 30 mmol/L) 21 L Anion Gap (5 - 16) 14 BUN (7 - 17 mg/dL) 43 H Creatinine (0.5 - 1.0 mg/dL) 1.5 H Estimated GFR (>60 ml/min) 33 L BUN/Creatinine Ratio (7 - 25 %) 28.7 H Glucose (65 - 99 mg/dL) 254 H Calcium (8.4 - 10.2 mg/dL) 9.5 Total Bilirubin (0.2 - 1.3 mg/dL) 0.6 AST (14 - 36 U/L) 40 H ALT (9 - 52 U/L) 30 Alkaline Phosphatase (<127 U/L) 74 Troponin I (< 0.11 ng/ml) 0.15 *H Total Protein (6.3 - 8.2 g/dL) 6.1 L Albumin (3.5 - 5.0 g/dL) 3.7 Globulin (1.9 - 4.2 gm/dL) 2.4 Albumin/Globulin Ratio (1.1 - 2.2 %) 1.5 Coagulation PT (9.4 - 12.5 SEC) 74.5 *H INR (0.90 - 1.19) 6.70 *H APTT (25 - 37 SEC) 68 H Hematology CBC w Diff NO MAN DIFF REQ WBC (4.8 - 10.8 /CUMM) 14.3 H RBC (4.20 - 5.40 /CUMM) 3.23 L Hgb (12.0 - 16.0 G/DL) 10.3 L Hct (37 - 47 %) 30.7 L MCV (81.0 - 99.0 FL) 95.1 MCH (27.0 - 31.0 PG) 31.7 H MCHC (33.0 - 37.0 G/DL) 33.4 RDW (11.5 - 14.5 %) 15.2 H Plt Count (130 - 400 /CUMM) 264 MPV (7.4 - 10.4 FL) 8.6 Gran % (42.2 - 75.2 %) 84.4 H Lymphocytes % (20.5 - 51.1 %) 8.5 L Monocytes % (1.7 - 9.3 %) 6.3 Eosinophils % (0 - 5 %) 0.3 Basophils % (0.0 - 2.0 %) 0.5 Absolute Granulocytes (1.4 - 6.5 /CUMM) 12.1 H Absolute Lymphocytes (1.2 - 3.4 /CUMM) 1.2 Absolute Monocytes (0.10 - 0.60 /CUMM) 0.9 H Absolute Eosinophils (0.0 - 0.7 /CUMM) 0 Absolute Basophils (0.0 - 0.2 /CUMM) 0.1 Urines Urinalysis LIGHT H Urine Color (YEL,AMB,STR) YEL Urine Clarity (CLEAR) HAZY H Urine pH (5.0 - 8.0) 6.5 Ur Specific [place] (1.001 - 1.035) 1.010 Urine Protein (NEG,<30 MG/DL) NEG Urine Ketones (NEG) NEG Urine Nitrite (NEG) NEG Urine Bilirubin (NEG) NEG Urine Urobilinogen (0.1 - 1.0 EU/dl) 0.2 Ur Leukocyte Esterase (NEG) MOD H Ur Microscopic SEDIMENT EXAMINED Urine RBC (0 - 5 /HPF) RARE Urine WBC (0 - 2 /HPF) 5-10 H Ur Epithelial Cells (NONE,FEW) MANY H Urine Bacteria (NEG/NONE) FEW H Urine Mucus (FEW,NONE) RARE Urine Hemoglobin (NEG) NEG Urine Glucose (N MG/DL) NEG Imaging/Other Studies: CTA IMPRESSION: There is no evidence of arterial extravasation to identify the source of bleeding related to the known left perinephric, retroperitoneal, extraperitoneal and intraperitoneal hemorrhage. This critical result was discussed with the physician on the housestaff caring for the patient at [facility] at 1918 on 02/25/18 and it was ascertained that the content and urgency of the report was understood at the time of direct communication. CT Chest IMPRESSION: There is a large left perinephric and para renal hemorrhage which is increasing and now extends into the extraperitoneal space and intraperitoneal spaces including the pelvis. The left kidney is misshapen and displaced. New worsening abnormality in the lower chest bilaterally.
[2018-02-26 15:05] LABS: ABSOLUTE BASOPHIL COUNT 0 /CUMM (0.0-0.2); ABSOLUTE EOSINOPHIL COUNT 0 /CUMM (0.0-0.7); ABSOLUTE GRANULOCYTE CT 15.8 /CUMM (1.4-6.5); ABSOLUTE LYMPH COUNT 0.7 /CUMM (1.2-3.4); ABSOLUTE MONOCYTE COUNT 1.4 /CUMM (0.10-0.60); BASOPHIL % 0 % (0.0-2.0); EOSINOPHIL % 0 % (0-5); HEMATOCRIT 24.3 % (37-47); MEAN CORPUSCULAR HGB 30.4 PG (27.0-31.0); MEAN CORPUSCULAR VOLUME 89.2 FL (81.0-99.0); RBC DISTRIBUTION WIDTH 16.6 % (11.5-14.5); RED BLOOD CELL CT 2.73 /CUMM (4.20-5.40); WHITE BLOOD CELL COUNT 17.9 /CUMM (4.8-10.8)
[2018-02-26 15:15] LABS: GRANULOCYTE % 88.2 % (42.2-75.2); PLATELET COUNT 197 /CUMM (130-400)
[2018-02-26 16:00] VITALS: BP 160/60
[2018-02-26 18:53] LABS: ABSOLUTE BASOPHIL COUNT 0 /CUMM (0.0-0.2); ABSOLUTE EOSINOPHIL COUNT 0 /CUMM (0.0-0.7); ABSOLUTE GRANULOCYTE CT 15.9 /CUMM (1.4-6.5); ABSOLUTE LYMPH COUNT 0.8 /CUMM (1.2-3.4); ABSOLUTE MONOCYTE COUNT 1.9 /CUMM (0.10-0.60); BASOPHIL % 0 % (0.0-2.0); EOSINOPHIL % 0 % (0-5); GRANULOCYTE % 85.8 % (42.2-75.2); HEMATOCRIT 24.8 % (37-47); MEAN CORPUSCULAR HGB 30.5 PG (27.0-31.0); MEAN CORPUSCULAR VOLUME 89.9 FL (81.0-99.0); MEAN PLATELET VOLUME 8.3 FL (7.4-10.4); PLATELET COUNT 199 /CUMM (130-400); RBC DISTRIBUTION WIDTH 16.8 % (11.5-14.5); RED BLOOD CELL CT 2.76 /CUMM (4.20-5.40); WHITE BLOOD CELL COUNT 18.5 /CUMM (4.8-10.8)
[2018-02-26 23:24] VITALS: BP 152/58
[2018-02-27 04:38] LABS: ABSOLUTE BASOPHIL COUNT 0 /CUMM (0.0-0.2); ABSOLUTE EOSINOPHIL COUNT 0 /CUMM (0.0-0.7); ABSOLUTE GRANULOCYTE CT 12.5 /CUMM (1.4-6.5); ABSOLUTE LYMPH COUNT 0.8 /CUMM (1.2-3.4); ABSOLUTE MONOCYTE COUNT 1.4 /CUMM (0.10-0.60); BASOPHIL % 0.3 % (0.0-2.0); EOSINOPHIL % 0.1 % (0-5); HEMATOCRIT 23.2 % (37-47); MEAN CORPUSCULAR HGB 30.9 PG (27.0-31.0); MEAN CORPUSCULAR HGB CONC 34.7 G/DL (33.0-37.0); MEAN PLATELET VOLUME 8.3 FL (7.4-10.4); PLATELET COUNT 204 /CUMM (130-400); RBC DISTRIBUTION WIDTH 16.7 % (11.5-14.5); RED BLOOD CELL CT 2.61 /CUMM (4.20-5.40); WHITE BLOOD CELL COUNT 14.7 /CUMM (4.8-10.8)
[2018-02-27 05:39] LABS: GRANULOCYTE % 84.9 % (42.2-75.2)
--- NOTE | 2018-02-27 07:20 | PN- Resident CRCU ---
Chema TERRY,Tao 02/27/18 0719: Subjective HPI/CRCU Issues: Patient is seen and examined at the bedside. She denies for any active complaints. Discussed about the conservative management 24 Hour Events: Vital signs-temperature 99.4, pulse 91, atrial fibrillation, respiratory rate 20 , blood pressure 169/80, CPAP with oxygen with SPO2 97% intake/output-2040/870; positive balance since admission -[id number]/[id number]. Objective Vital Signs & I&O Last 8 Hrs of Vitals and I&O: Vital signs-temperature 99.4, pulse 91, atrial fibrillation, respiratory rate 20 , blood pressure 169/80, CPAP with oxygen with SPO2 97% intake/output-2040/870; positive balance since admission -[id number]/[id number]. Exam General Appearance: well developed/nourished, alert, awake, comfortable Neck: supple Respiratory: normal breath sounds, chest non-tender Cardiovascular: regular rate/rhythm Gastrointestinal: soft, non-tender, deep tenderness on left side Extremities: normal inspection, normal capillary refill Cranial Nerves: normal speech Current Medications: Current Medications Sig/Mauro Start time Last Medication Dose Route Stop Time Status Admin Hydromorphone HCl 0.2 MG Q6P PRN 02/26 0815 AC IV Insulin Aspart 0 TIDAC 02/25 1200 AC 02/27 SC 1134 Levothyroxine Sodium 0.075 MG DAILY 02/24 1131 AC 02/27 PO 0747 Ondansetron HCl 4 MG Q6P PRN 02/24 1045 AC 02/24 IV 1644 Simethicone 40 MG Q4P PRN 02/26 1100 AC 02/26 PO 1140 Sodium Chloride 1,000 ML Q20H 02/25 1900 DC 02/25 IV 2252 Tramadol HCl 50 MG Q12P PRN 02/26 0945 AC PO Impression/Plan Impression/Problem List Impression: Patient is an 78-year-old female with significant past medical history of hypertension, hyperlipidemia, hypothyroidism, type 2 diabetes, obstructive sleep apnea on CPAP, hereditary Vitiligo, chronic atrial fibrillation on Coumadin, presented after an episode of emotional stress ( of grandson), leading to syncopal episode and left flank pain and found to have left-sided retroperitoneal/perinephric hematoma. Vital signs-temperature 99.4, pulse 91, atrial fibrillation, respiratory rate 20 , blood pressure 169/80, CPAP with oxygen with SPO2 97% intake/output-2040/870; positive balance since admission -[id number]/[id number]. Assessment and plan- Left retroperitoneal hematoma adjacent to left mid to lower kidney/left perinephric space, hemodynamically stable - CTA neg for arterial bleed * Goal of Hb >8; incentive spiromery, ALPS * CBC every 12 hourly * Last PT/INR -1.2(02/27/2018) * Her pain has been improved and denies for any nausea. * We will continue inj Dilaudid 0.2 mg IV every 6 hourly as needed. * We will avoid nephrotoxic medications * Patient is awair of all her situation and want to have treatment in the [facility], doesnt want surgery, and if needed than change care to palliative/comfort care. * f/u Hb is 8.0. We will recheck in 6 hrs and if decreased by 1 point than will transfuse 1 Unit PRBC. Supratherapeutic INR -resolved * Last PT/INR -1.2(02/27/2018) * Completed course of Tab Vit K 10mg x 3 doses * Watch for bleeding. Type II [place], Demand ischemia - * Her troponins was stabilized 0.23, she is asymptomatic. * Follow-up echocardiogram -LVEF 60-65, no regional wall motion abnormality, RVSP 60. * Her last echocardiogram shows ejection fraction of 65%(2012). * We'll follow the cardiology recommendation Acute kidney injury, anuric converted to oliguric possible ATN- Cr -2.2 ( improved) * Will follow nephrology recommendations * Strict intake output charting. * Continue Christianson catheterization. * Avoid nephrotoxic medication including NSAIDs Atrial fibrillation with controlled ventricular rate, Coumadin on hold - * We will continue to hold anticoagulant * If needed then we will give FFP. * Patient is at high risk of stroke,continue ALPS. Type 2 diabetes mellitus- * Blood sugar charting 3 times daily/at bedtime. * NovoLog according to the sliding scale. * Full liquid diet Chronic medical condition-hypothyroidism, hypertension, hyperlipidemia, obstructive sleep apnea- * Continue tablet levothyroxin 75mcg daily * We will hold antihypertensive for now until she stabilized * CPAP while sleeping. CODE STATUS -DNR/DNI. DVT prophylaxis -ALPS, avoid Coumadin, heparin Diet -clear liquid. Problem List: 1. Retroperitoneal bleed Pain Ratin Pain Location: left side abdomen Tomorrow's Labs & Rationales: f/u CBC, ICU bundle Plan DVT/Prophylaxis: Jonas Madera MD 02/27/18 0943: Attending MD Review Statement Attending Sign Off Attending Cosign Statement: I have: examined this patient, reviewed avalbl EMR data, personally reviewd images, discussd w/resident/PA/BEEHIVE KILN SUPERVISOR, discussed mgmt plan w/mariusz, discussed mgmt plan w/CM, discussed mgmt plan w/pt, agreed w/resident/PA/BEEHIVE KILN SUPERVISOR, amended to note. Other Findings: I, Jonas Choudhary M.D. have examined this patient, reviewed available EMR data, personally reviewed images, discussed with resident/PA/BEEHIVE KILN SUPERVISOR, discussed management plan with housestaff and nursing staff, discussed managment plan all of healthcare providers, discussed management plan with patient and/or family, agreed with resident/PA/BEEHIVE KILN SUPERVISOR. The past history and parts of the chart have been autopopulated. Impression 78 year old woman * left sided retroperitoneal localized bleed * acute blood loss anemia * MONSERRAT/ATN * a.fib Plan -a/c held, risk understood for lack of a/c for a.fib in setting of acute anemia/ bleed -cardiology, nephorlogy, urology consultations reviewed and will follow recommendations -monitor cbc, coags -blood transfusion - goal hgb >8 -monitor urine output -pain control -incentive spirometry -no brisk bleed was seen on CTA, pt has decided against any surgical interventions, she would agree with conservative medical management at this time ALPS for DVT prophylaxis at all times TTS 35 min Discussed with patient, housestaff, family at bedside will observe in ICU for 24 hrs if no further significant bleed will transfer to telemetry
--- NOTE | 2018-02-27 07:56 | PN- Urology ---
Subjective Subjective: Looks and feels better than yesterday Objective Vital Signs and I&Os Vital Signs Date Time Temp Pulse Resp B/P B/P Pulse O2 O2 Flow FiO2 Mean Ox Delivery Rate 02/27 0400 95 Nasal 3.0L Cannula 02/27 0000 95 CPAP 02/26 2324 99.3 92 21 152/58 95 CPAP 3.0L 02/26 2000 94 CPAP 02/26 1610 95 CPAP 3.0L 02/26 1600 95 Nasal 3.0L Cannula 02/26 1600 98.4 100 26 160/60 95 Nasal 2.0L Cannula 02/26 1200 CPAP 02/26 0800 Nasal 3.0L Cannula 02/26 0800 97.8 81 16 144/52 96 Nasal 3.0L Cannula Intake & Output 02/27 0800 02/27 0000 02/26 1600 02/26 0800 02/26 0000 02/25 1600 Intake Total 035 073 9891 711.0 1506 520 Output Total 300 270 300 800 325 500 Balance 180 -30 1020 -89.0 1181 20 Intake, Blood 1406 Product Intake, IV 0 600 711.0 20 Intake, Oral 480 240 720 100 500 Number 0 0 0 Bowel Movements Output, Urine 300 270 300 800 325 500 Patient 216 lb Weight Hct seems to be stabilizing Coagulopathy corrected Renal fxn continues to improve Laboratory Tests 02/27 02/26 6716 8238 Chemistry Sodium (137 - 145 mmol/L) 136 L Potassium (3.5 - 5.1 mmol/L) 4.4 Chloride (98 - 107 mmol/L) 101 Carbon Dioxide (22 - 30 mmol/L) 19 L Anion Gap (5 - 16) 16 BUN (7 - 17 mg/dL) 84 H Creatinine (0.5 - 1.0 mg/dL) 2.2 H Estimated GFR (>60 ml/min) 21 L Glucose (65 - 99 mg/dL) 191 H Calcium (8.4 - 10.2 mg/dL) 9.0 Phosphorus (2.5 - 4.5 mg/dL) 4.1 Magnesium (1.6 - 2.3 mg/dL) 3.1 H Total Bilirubin (0.2 - 1.3 mg/dL) 1.4 H AST (14 - 36 U/L) 34 ALT (9 - 52 U/L) 44 Albumin (3.5 - 5.0 g/dL) 3.1 L Hematology CBC w Diff NO MAN DIFF REQ NO MAN DIFF REQ WBC (4.8 - 10.8 /CUMM) 14.7 H 18.5 H RBC (4.20 - 5.40 /CUMM) 2.61 L 2.76 L Hgb (12.0 - 16.0 G/DL) 8.0 L 8.4 L Hct (37 - 47 %) 23.2 L 24.8 L MCV (81.0 - 99.0 FL) 89.0 89.9 MCH (27.0 - 31.0 PG) 30.9 30.5 MCHC (33.0 - 37.0 G/DL) 34.7 34.0 RDW (11.5 - 14.5 %) 16.7 H 16.8 H Plt Count (130 - 400 /CUMM) 204 199 MPV (7.4 - 10.4 FL) 8.3 8.3 Gran % (42.2 - 75.2 %) 84.9 H 85.8 H Lymphocytes % (20.5 - 51.1 %) 5.1 L 4.1 L Monocytes % (1.7 - 9.3 %) 9.6 H 10.1 H Eosinophils % (0 - 5 %) 0.1 0 Basophils % (0.0 - 2.0 %) 0.3 0 Absolute Granulocytes (1.4 - 6.5 /CUMM) 12.5 H 15.9 H Absolute Lymphocytes (1.2 - 3.4 /CUMM) 0.8 L 0.8 L Absolute Monocytes (0.10 - 0.60 /CUMM) 1.4 H 1.9 H Absolute Eosinophils (0.0 - 0.7 /CUMM) 0 0 Absolute Basophils (0.0 - 0.2 /CUMM) 0 0 /12 02/26 1442 0915 Hematology CBC w Diff NO MAN DIFF REQ NO MAN DIFF REQ WBC (4.8 - 10.8 /CUMM) 17.9 H 19.0 H RBC (4.20 - 5.40 /CUMM) 2.73 L 2.44 L Hgb (12.0 - 16.0 G/DL) 8.3 L 7.4 *L Hct (37 - 47 %) 24.3 L 21.6 L MCV (81.0 - 99.0 FL) 89.2 88.6 MCH (27.0 - 31.0 PG) 30.4 30.3 MCHC (33.0 - 37.0 G/DL) 34.0 34.2 RDW (11.5 - 14.5 %) 16.6 H 17.1 H Plt Count (130 - 400 /CUMM) 197 183 MPV (7.4 - 10.4 FL) 8.0 8.2 Gran % (42.2 - 75.2 %) 88.2 H 88.8 H Lymphocytes % (20.5 - 51.1 %) 3.7 L 3.0 L Monocytes % (1.7 - 9.3 %) 8.1 8.1 Eosinophils % (0 - 5 %) 0 0 Basophils % (0.0 - 2.0 %) 0 0.1 Absolute Granulocytes (1.4 - 6.5 /CUMM) 15.8 H 16.8 H Absolute Lymphocytes (1.2 - 3.4 /CUMM) 0.7 L 0.6 L Absolute Monocytes (0.10 - 0.60 /CUMM) 1.4 H 1.5 H Absolute Eosinophils (0.0 - 0.7 /CUMM) 0 0 Absolute Basophils (0.0 - 0.2 /CUMM) 0 0 06/12 0905 Coagulation PT (9.4 - 12.5 SEC) 14.0 H INR (0.90 - 1.19) 1.28 H Assessment/Plan Assessment/Plan Imp: 1. Retroperitoneal bleed with origin in posterior aspect of L kidney in setting of supratherapeutic INR. Coagulopathy corrected and Hct seems to be stabilizing after multiple transfusions 2. MONSERRAT due to ATN from hypotention. Likely also some CKD Plan: 1. Monitor Hct and transfuse as needed 2. Clear liquid diet. If remains stable may be able to advance diet tomorrow
[2018-02-27 08:00] VITALS: BP 156/66
--- NOTE | 2018-02-27 10:01 | PN- Cardiology ---
Subjective Subjective: Clinically, the patient appears to be doing somewhat better. She is awake and alert. She denies any specific symptoms or complaints. Objective Vital Signs and I&Os Vital Signs Date Time Temp Pulse Resp B/P B/P Pulse O2 O2 Flow FiO2 Mean Ox Delivery Rate 02/27 0800 97.5 84 156/66 20 Nasal 3.0L Cannula 02/27 0800 98 Nasal 3.0L Cannula 02/27 0400 95 Nasal 3.0L Cannula 02/27 0000 95 CPAP 02/26 2324 99.3 92 21 152/58 95 CPAP 3.0L 02/26 2000 94 CPAP 02/26 1610 95 CPAP 3.0L 02/26 1600 95 Nasal 3.0L Cannula 02/26 1600 98.4 100 26 160/60 95 Nasal 2.0L Cannula 02/26 1200 CPAP Intake & Output 02/27 1600 02/27 0800 02/27 0000 02/26 1600 02/26 0800 02/26 0000 Intake Total 858 049 2485 711.0 1506 Output Total 300 270 300 800 325 Balance 180 -30 1020 -89.0 1181 Intake, Blood 1406 Product Intake, IV 0 600 711.0 Intake, Oral 480 240 720 100 Number 0 0 0 Bowel Movements Output, Urine 300 270 300 800 325 Patient 216 lb Weight Physical Exam: General Appearance: well developed/nourished, elderly female, alert, awake, oriented Head: normal HEENT: Normal Neck: supple, JVP normal, carotid upstrokes normal bilaterally, no masses or thyromegaly Respiratory: chest non-tender, clear to auscultation and percussion bilaterally Cardiovascular: regular rate/rhythm, normal S1, S2, 1-2/6 systolic murmur Abdomen: normal bowel sounds, soft, non-tender Extremities: normal inspection, no edema Vascular: Pulses are 2+ and equal bilaterally Neurologic: Grossly normal/nonfocal Current Medications: Current Medications Sig/Mauro Start time Last Medication Dose Route Stop Time Status Admin Al Hydroxide/Mg 30 ML Q4-6 PRN PRN 02/26 0930 DC Hydroxide PO Hydromorphone HCl 0.2 MG Q6P PRN 02/26 0815 AC IV Insulin Aspart 0 TIDAC 02/25 1200 AC 02/27 SC 0748 Levothyroxine Sodium 0.075 MG DAILY 02/24 1131 AC 06/13 PO 0747 Ondansetron HCl 4 MG Q6P PRN 02/24 1045 AC 02/24 IV 1644 Simethicone 40 MG Q4P PRN 02/26 1100 AC 02/26 PO 1140 Sodium Chloride 1,000 ML Q20H 02/25 1900 DC 02/25 IV 2252 Tramadol HCl 50 MG Q12P PRN 02/26 0945 AC PO Results Last 48 Hrs of Labs/Mics: Laboratory Tests 02/27/18 0416: Anion Gap 16, Estimated GFR 21 L, Glucose 191 H, Calcium 9.0, Phosphorus 4.1, Magnesium 3.1 H, Total Bilirubin 1.4 H, AST 34, ALT 44, Albumin 3.1 L, CBC w Diff NO MAN DIFF REQ, RBC 2.61 L, MCV 89.0, MCH 30.9, MCHC 34.7, RDW 16.7 H, MPV 8.3, Gran % 84.9 H, Lymphocytes % 5.1 L, Monocytes % 9.6 H, Eosinophils % 0.1, Basophils % 0.3, Absolute Granulocytes 12.5 H, Absolute Lymphocytes 0.8 L , Absolute Monocytes 1.4 H, Absolute Eosinophils 0, Absolute Basophils 0 02/26/18 1738: CBC w Diff NO MAN DIFF REQ, RBC 2.76 L, MCV 89.9, MCH 30.5, MCHC 34.0, RDW 16.8 H, MPV 8.3, Gran % 85.8 H, Lymphocytes % 4.1 L, Monocytes % 10.1 H, Eosinophils % 0, Basophils % 0, Absolute Granulocytes 15.9 H, Absolute Lymphocytes 0.8 L, Absolute Monocytes 1.9 H, Absolute Eosinophils 0, Absolute Basophils 0 02/26/18 1442: CBC w Diff NO MAN DIFF REQ, RBC 2.73 L, MCV 89.2, MCH 30.4, MCHC 34.0, RDW 16.6 H, MPV 8.0, Gran % 88.2 H, Lymphocytes % 3.7 L, Monocytes % 8.1, Eosinophils % 0, Basophils % 0, Absolute Granulocytes 15.8 H, Absolute Lymphocytes 0.7 L, Absolute Monocytes 1.4 H, Absolute Eosinophils 0, Absolute Basophils 0 02/26/18 0915: CBC w Diff NO MAN DIFF REQ, RBC 2.44 L, MCV 88.6, MCH 30.3, MCHC 34.2, RDW 17.1 H, MPV 8.2, Gran % 88.8 H, Lymphocytes % 3.0 L, Monocytes % 8.1, Eosinophils % 0, Basophils % 0.1, Absolute Granulocytes 16.8 H, Absolute Lymphocytes 0.6 L , Absolute Monocytes 1.5 H, Absolute Eosinophils 0, Absolute Basophils 0 02/26/18 0905: PT 14.0 H, INR 1.28 H 02/26/18 0350: Anion Gap 18 H, Estimated GFR 19 L, Glucose 186 H, Calcium 8.9, Phosphorus 4.7 H, Magnesium 2.8 H, Total Bilirubin 1.4 H, AST 63 H, ALT 57 H, Albumin 3.4 L, CBC w Diff MAN DIFF ORDERED, RBC 2.56 L, MCV 89.5, MCH 30.7, MCHC 34.3, RDW 16.7 H, MPV 8.4, Gran % 89.4 H, Lymphocytes % 3.2 L, Monocytes % 7.0, Eosinophils % 0, Basophils % 0.4, Absolute Granulocytes 16.9 H, Absolute Lymphocytes 0.6 L, Absolute Monocytes 1.3 H, Absolute Eosinophils 0, Absolute Basophils 0.1, Platelet Estimate ADEQUATE, Poikilocytosis 1+, Basophilic Stippling 1+, Anisocytosis 1+, Ovalocytes 1+ 02/26/18 0005: CBC w Diff Cancelled, WBC Cancelled, RBC Cancelled, Hgb Cancelled, Hct Cancelled , MCV Cancelled, MCH Cancelled, MCHC Cancelled, RDW Cancelled, Plt Count Cancelled, MPV Cancelled 02/25/18 2320: CBC w Diff MAN DIFF ORDERED, RBC 2.60 L, MCV 87.8, MCH 30.2, MCHC 34.4, RDW 16.6 H, MPV 8.5, Gran % 89.3 H, Lymphocytes % 3.9 L, Monocytes % 6.5, Eosinophils % 0, Basophils % 0.3, Absolute Granulocytes 17.0 H, Absolute Lymphocytes 0.8 L, Absolute Monocytes 1.2 H, Absolute Eosinophils 0, Absolute Basophils 0.1, Platelet Estimate ADEQUATE, Polychromasia 1+ 02/25/18 1430: Anion Gap 12, Estimated GFR 18 L, Glucose 167 H, Calcium 8.8, Phosphorus 4.7 H, Magnesium 2.9 H, Total Bilirubin 1.2, AST 101 H, ALT 71 H, Albumin 3.3 L, CBC w Diff MAN DIFF ORDERED, RBC 2.32 L, MCV 91.0, MCH 30.8, MCHC 33.9, RDW 16.4 H, MPV 8.5, Gran % 87.5 H, Lymphocytes % 3.7 L, Monocytes % 8.7, Eosinophils % 0, Basophils % 0.1, Absolute Granulocytes 18.2 H, Segmented Neutrophils 89 H, Band Neutrophils 5, Absolute Lymphocytes 0.8 L, Lymphocytes 2 L, Monocytes 4, Absolute Monocytes 1.8 H, Absolute Eosinophils 0, Absolute Basophils 0, Platelet Estimate VERIFIED BY SMEAR, Normocytic RBCs VERIFIED, Normochromic RBCs VERIFIED Assessment/Plan Assessment/Plan Assessment: 1. Atrial fibrillation, anticoagulated on warfarin 2. Supratherapeutic INR, improved-INR 1.2 today 3. Mild troponin elevation 4. hemorrhagic shock l secondary to retroperitoneal hematoma recommendations: * Anticoagulation on hold. status post therapy with vitamin K. * Angiotensin receptor mi and diuretic on hold as well. * Transfuse as needed for Anemia; H&H stable today Continue telemetry? Yes
[2018-02-27 14:11] LABS: ABSOLUTE BASOPHIL COUNT 0 /CUMM (0.0-0.2); ABSOLUTE EOSINOPHIL COUNT 0 /CUMM (0.0-0.7); ABSOLUTE GRANULOCYTE CT 11.8 /CUMM (1.4-6.5); ABSOLUTE LYMPH COUNT 0.8 /CUMM (1.2-3.4); ABSOLUTE MONOCYTE COUNT 1.3 /CUMM (0.10-0.60); BASOPHIL % 0 % (0.0-2.0); EOSINOPHIL % 0.3 % (0-5); GRANULOCYTE % 84.7 % (42.2-75.2); HEMATOCRIT 22.5 % (37-47); MEAN CORPUSCULAR HGB 30.2 PG (27.0-31.0); MEAN CORPUSCULAR HGB CONC 33.8 G/DL (33.0-37.0); MEAN CORPUSCULAR VOLUME 89.4 FL (81.0-99.0); MEAN PLATELET VOLUME 8.4 FL (7.4-10.4); PLATELET COUNT 223 /CUMM (130-400); RBC DISTRIBUTION WIDTH 16.9 % (11.5-14.5); RED BLOOD CELL CT 2.52 /CUMM (4.20-5.40)
[2018-02-27 14:26] LABS: WHITE BLOOD CELL COUNT 13.9 /CUMM (4.8-10.8)
--- NOTE | 2018-02-27 14:50 | PN- Nephrology ---
Assessment/Plan Nephrology Assessment: MONSERRAT - 2/2 ATN in the setting of hypotension from L perirenal bleed while on outpatient ARB/Lasix. Renal function improving a bit. Should note that she needed to receive contrast for an emergent CTA 2 nights ago - Cr down today but will need to follow-up tomorrow. L perirenal bleed - Worsening on CT imaging but no arterial bleeding on CTA. Hg slowly downtrending although clinically much better. No clear mass on non- contrast CT imaging. Once she stabilizes, should probably have more dedicated imaging (preferably MR once renal function back to baseline) to see exactly what may have led to the bleeding. Urology is following. Suggestion: -Would hold off on further IVF at this time given pleural effusions -Cont to closely monitor Hg and hemodynamics -Will eventually need more dedicated renal imaging once clinically back to baseline (preferably MR when renal function back to baseline) -Cont to hold ARB/Metformin Please call [phone] with ?'s Subjective Subjective: SCr 2.2 Hg 7.6 Pain better Feeling better Objective Vital Signs and I&Os Vital Signs Date Time Temp Pulse Resp B/P B/P Pulse O2 O2 Flow FiO2 Mean Ox Delivery Rate 02/27 1140 95 Nasal 3.0L Cannula 02/27 0800 97.5 84 156/66 20 Nasal 3.0L Cannula 02/27 0800 98 Nasal 3.0L Cannula 02/27 0400 95 Nasal 3.0L Cannula 02/27 0000 95 CPAP 02/26 2324 99.3 92 21 152/58 95 CPAP 3.0L 02/26 2000 94 CPAP 02/26 1610 95 CPAP 3.0L 02/26 1600 95 Nasal 3.0L Cannula 02/26 1600 98.4 100 26 160/60 95 Nasal 2.0L Cannula Intake & Output 02/27 1600 02/27 0400 02/26 1600 02/26 0400 02/25 1600 02/25 0400 Intake Total 4783 467 0652.0 4345 530 9063 Output Total 772 347 7118 325 1000 250 Balance 530 -30 931.0 1181 -360 1610 Intake, Blood 1406 1310 Product Intake, IV 0 1311.0 20 250 Intake, Oral 1080 240 720 100 620 300 Number 1 0 0 0 0 Bowel Movements Output, Urine 644 200 6268 325 1000 250 Patient 216 lb Weight Physical Exam: Gen - better appearing HEENT - supple CV - RRR, no m/r/g Chest - clear, no w/r/r Abd - soft, NTND Ext - warm, no edema Neuro - AOX3, grossly nonfocal Current Medications: Current Medications Sig/Mauro Start time Last Medication Dose Route Stop Time Status Admin Hydromorphone HCl 0.2 MG Q6P PRN 02/26 0815 AC IV Insulin Aspart 0 TIDAC 02/25 1200 AC 02/27 SC 1134 Levothyroxine Sodium 0.075 MG DAILY 02/24 1131 AC 02/27 PO 0747 Ondansetron HCl 4 MG Q6P PRN 02/24 1045 AC 02/24 IV 1644 Simethicone 40 MG Q4P PRN 02/26 1100 AC 02/26 PO 1140 Sodium Chloride 1,000 ML Q20H 02/25 1900 DC 02/25 IV 2252 Tramadol HCl 50 MG Q12P PRN 02/26 0945 AC PO Results Pertinent Lab Results: Laboratory Tests 02/27 02/27 1314 0416 Chemistry Sodium (137 - 145 mmol/L) 136 L Potassium (3.5 - 5.1 mmol/L) 4.4 Chloride (98 - 107 mmol/L) 101 Carbon Dioxide (22 - 30 mmol/L) 19 L Anion Gap (5 - 16) 16 BUN (7 - 17 mg/dL) 84 H Creatinine (0.5 - 1.0 mg/dL) 2.2 H Estimated GFR (>60 ml/min) 21 L Glucose (65 - 99 mg/dL) 191 H Calcium (8.4 - 10.2 mg/dL) 9.0 Phosphorus (2.5 - 4.5 mg/dL) 4.1 Magnesium (1.6 - 2.3 mg/dL) 3.1 H Total Bilirubin (0.2 - 1.3 mg/dL) 1.4 H AST (14 - 36 U/L) 34 ALT (9 - 52 U/L) 44 Albumin (3.5 - 5.0 g/dL) 3.1 L Hematology CBC w Diff NO MAN DIFF REQ NO MAN DIFF REQ WBC (4.8 - 10.8 /CUMM) 13.9 H 14.7 H RBC (4.20 - 5.40 /CUMM) 2.52 L 2.61 L Hgb (12.0 - 16.0 G/DL) 7.6 L 8.0 L Hct (37 - 47 %) 22.5 L 23.2 L MCV (81.0 - 99.0 FL) 89.4 89.0 MCH (27.0 - 31.0 PG) 30.2 30.9 MCHC (33.0 - 37.0 G/DL) 33.8 34.7 RDW (11.5 - 14.5 %) 16.9 H 16.7 H Plt Count (130 - 400 /CUMM) 223 204 MPV (7.4 - 10.4 FL) 8.4 8.3 Gran % (42.2 - 75.2 %) 84.7 H 84.9 H Lymphocytes % (20.5 - 51.1 %) 5.7 L 5.1 L Monocytes % (1.7 - 9.3 %) 9.3 9.6 H Eosinophils % (0 - 5 %) 0.3 0.1 Basophils % (0.0 - 2.0 %) 0 0.3 Absolute Granulocytes (1.4 - 6.5 /CUMM) 11.8 H 12.5 H Absolute Lymphocytes (1.2 - 3.4 /CUMM) 0.8 L 0.8 L Absolute Monocytes (0.10 - 0.60 /CUMM) 1.3 H 1.4 H Absolute Eosinophils (0.0 - 0.7 /CUMM) 0 0 Absolute Basophils (0.0 - 0.2 /CUMM) 0 0 /12 / 1738 1442 Hematology CBC w Diff NO MAN DIFF REQ NO MAN DIFF REQ WBC (4.8 - 10.8 /CUMM) 18.5 H 17.9 H RBC (4.20 - 5.40 /CUMM) 2.76 L 2.73 L Hgb (12.0 - 16.0 G/DL) 8.4 L 8.3 L Hct (37 - 47 %) 24.8 L 24.3 L MCV (81.0 - 99.0 FL) 89.9 89.2 MCH (27.0 - 31.0 PG) 30.5 30.4 MCHC (33.0 - 37.0 G/DL) 34.0 34.0 RDW (11.5 - 14.5 %) 16.8 H 16.6 H Plt Count (130 - 400 /CUMM) 199 197 MPV (7.4 - 10.4 FL) 8.3 8.0 Gran % (42.2 - 75.2 %) 85.8 H 88.2 H Lymphocytes % (20.5 - 51.1 %) 4.1 L 3.7 L Monocytes % (1.7 - 9.3 %) 10.1 H 8.1 Eosinophils % (0 - 5 %) 0 0 Basophils % (0.0 - 2.0 %) 0 0 Absolute Granulocytes (1.4 - 6.5 /CUMM) 15.9 H 15.8 H Absolute Lymphocytes (1.2 - 3.4 /CUMM) 0.8 L 0.7 L Absolute Monocytes (0.10 - 0.60 /CUMM) 1.9 H 1.4 H Absolute Eosinophils (0.0 - 0.7 /CUMM) 0 0 Absolute Basophils (0.0 - 0.2 /CUMM) 0 0 / 06/12 0915 0905 Coagulation PT (9.4 - 12.5 SEC) 14.0 H INR (0.90 - 1.19) 1.28 H Hematology CBC w Diff NO MAN DIFF REQ WBC (4.8 - 10.8 /CUMM) 19.0 H RBC (4.20 - 5.40 /CUMM) 2.44 L Hgb (12.0 - 16.0 G/DL) 7.4 *L Hct (37 - 47 %) 21.6 L MCV (81.0 - 99.0 FL) 88.6 MCH (27.0 - 31.0 PG) 30.3 MCHC (33.0 - 37.0 G/DL) 34.2 RDW (11.5 - 14.5 %) 17.1 H Plt Count (130 - 400 /CUMM) 183 MPV (7.4 - 10.4 FL) 8.2 Gran % (42.2 - 75.2 %) 88.8 H Lymphocytes % (20.5 - 51.1 %) 3.0 L Monocytes % (1.7 - 9.3 %) 8.1 Eosinophils % (0 - 5 %) 0 Basophils % (0.0 - 2.0 %) 0.1 Absolute Granulocytes (1.4 - 6.5 /CUMM) 16.8 H Absolute Lymphocytes (1.2 - 3.4 /CUMM) 0.6 L Absolute Monocytes (0.10 - 0.60 /CUMM) 1.5 H Absolute Eosinophils (0.0 - 0.7 /CUMM) 0 Absolute Basophils (0.0 - 0.2 /CUMM) 0 02/26 02/26 0350 0005 Chemistry Sodium (137 - 145 mmol/L) 136 L Potassium (3.5 - 5.1 mmol/L) 4.3 Chloride (98 - 107 mmol/L) 99 Carbon Dioxide (22 - 30 mmol/L) 20 L Anion Gap (5 - 16) 18 H BUN (7 - 17 mg/dL) 71 H Creatinine (0.5 - 1.0 mg/dL) 2.4 H Estimated GFR (>60 ml/min) 19 L Glucose (65 - 99 mg/dL) 186 H Calcium (8.4 - 10.2 mg/dL) 8.9 Phosphorus (2.5 - 4.5 mg/dL) 4.7 H Magnesium (1.6 - 2.3 mg/dL) 2.8 H Total Bilirubin (0.2 - 1.3 mg/dL) 1.4 H AST (14 - 36 U/L) 63 H ALT (9 - 52 U/L) 57 H Albumin (3.5 - 5.0 g/dL) 3.4 L Hematology CBC w Diff MAN DIFF ORDERED Cancelled WBC (4.8 - 10.8 /CUMM) 18.9 H Cancelled RBC (4.20 - 5.40 /CUMM) 2.56 L Cancelled Hgb (12.0 - 16.0 G/DL) 7.9 L Cancelled Hct (37 - 47 %) 22.9 L Cancelled MCV (81.0 - 99.0 FL) 89.5 Cancelled MCH (27.0 - 31.0 PG) 30.7 Cancelled MCHC (33.0 - 37.0 G/DL) 34.3 Cancelled RDW (11.5 - 14.5 %) 16.7 H Cancelled Plt Count (130 - 400 /CUMM) 181 Cancelled MPV (7.4 - 10.4 FL) 8.4 Cancelled Gran % (42.2 - 75.2 %) 89.4 H Lymphocytes % (20.5 - 51.1 %) 3.2 L Monocytes % (1.7 - 9.3 %) 7.0 Eosinophils % (0 - 5 %) 0 Basophils % (0.0 - 2.0 %) 0.4 Absolute Granulocytes (1.4 - 6.5 /CUMM) 16.9 H Absolute Lymphocytes (1.2 - 3.4 /CUMM) 0.6 L Absolute Monocytes (0.10 - 0.60 /CUMM) 1.3 H Absolute Eosinophils (0.0 - 0.7 /CUMM) 0 Absolute Basophils (0.0 - 0.2 /CUMM) 0.1 Platelet Estimate (ADEQUATE) ADEQUATE Poikilocytosis 1+ Basophilic Stippling 1+ Anisocytosis 1+ Ovalocytes 1+ 02/25 02/25 2320 1430 Chemistry Sodium (137 - 145 mmol/L) 133 L Potassium (3.5 - 5.1 mmol/L) 4.2 Chloride (98 - 107 mmol/L) 99 Carbon Dioxide (22 - 30 mmol/L) 22 Anion Gap (5 - 16) 12 BUN (7 - 17 mg/dL) 64 H Creatinine (0.5 - 1.0 mg/dL) 2.6 H Estimated GFR (>60 ml/min) 18 L Glucose (65 - 99 mg/dL) 167 H Calcium (8.4 - 10.2 mg/dL) 8.8 Phosphorus (2.5 - 4.5 mg/dL) 4.7 H Magnesium (1.6 - 2.3 mg/dL) 2.9 H Total Bilirubin (0.2 - 1.3 mg/dL) 1.2 AST (14 - 36 U/L) 101 H ALT (9 - 52 U/L) 71 H Albumin (3.5 - 5.0 g/dL) 3.3 L Hematology CBC w Diff MAN DIFF ORDERED MAN DIFF ORDERED WBC (4.8 - 10.8 /CUMM) 19.1 H 20.8 H RBC (4.20 - 5.40 /CUMM) 2.60 L 2.32 L Hgb (12.0 - 16.0 G/DL) 7.9 L 7.2 *L Hct (37 - 47 %) 22.9 L 21.1 L MCV (81.0 - 99.0 FL) 87.8 91.0 MCH (27.0 - 31.0 PG) 30.2 30.8 MCHC (33.0 - 37.0 G/DL) 34.4 33.9 RDW (11.5 - 14.5 %) 16.6 H 16.4 H Plt Count (130 - 400 /CUMM) 163 192 MPV (7.4 - 10.4 FL) 8.5 8.5 Gran % (42.2 - 75.2 %) 89.3 H 87.5 H Lymphocytes % (20.5 - 51.1 %) 3.9 L 3.7 L Monocytes % (1.7 - 9.3 %) 6.5 8.7 Eosinophils % (0 - 5 %) 0 0 Basophils % (0.0 - 2.0 %) 0.3 0.1 Absolute Granulocytes (1.4 - 6.5 /CUMM) 17.0 H 18.2 H Segmented Neutrophils (42.2 - 75.2 %) 89 H Band Neutrophils (0.0 - 5.0 %) 5 Absolute Lymphocytes (1.2 - 3.4 /CUMM) 0.8 L 0.8 L Lymphocytes (20.5 - 51.1 %) 2 L Monocytes (1.7 - 9.3 %) 4 Absolute Monocytes (0.10 - 0.60 /CUMM) 1.2 H 1.8 H Absolute Eosinophils (0.0 - 0.7 /CUMM) 0 0 Absolute Basophils (0.0 - 0.2 /CUMM) 0.1 0 Platelet Estimate (ADEQUATE) ADEQUATE VERIFIED BY SMEAR Normocytic RBCs VERIFIED Normochromic RBCs VERIFIED Polychromasia 1+ 02/25 02/24 0425 2220 Chemistry Sodium (137 - 145 mmol/L) 140 138 Potassium (3.5 - 5.1 mmol/L) 4.5 4.9 Chloride (98 - 107 mmol/L) 102 102 Carbon Dioxide (22 - 30 mmol/L) 22 21 L Anion Gap (5 - 16) 16 15 BUN (7 - 17 mg/dL) 65 H 59 H Creatinine (0.5 - 1.0 mg/dL) 2.8 H 2.8 H Estimated GFR (>60 ml/min) 16 L 16 L Glucose (65 - 99 mg/dL) 149 H 154 H Calcium (8.4 - 10.2 mg/dL) 8.7 8.6 Phosphorus (2.5 - 4.5 mg/dL) 5.8 H 6.3 H Magnesium (1.6 - 2.3 mg/dL) 2.9 H 2.9 H Total Bilirubin (0.2 - 1.3 mg/dL) 0.9 1.0 AST (14 - 36 U/L) 142 H 151 H ALT (9 - 52 U/L) 72 H 73 H Albumin (3.5 - 5.0 g/dL) 3.4 L 3.4 L Coagulation PT (9.4 - 12.5 SEC) 17.7 H 18.5 H INR (0.90 - 1.19) 1.62 H 1.69 H Hematology CBC w Diff MAN DIFF ORDERED NO MAN DIFF REQ WBC (4.8 - 10.8 /CUMM) 18.7 H 16.0 H RBC (4.20 - 5.40 /CUMM) 2.57 L 2.76 L Hgb (12.0 - 16.0 G/DL) 7.9 L 8.4 L Hct (37 - 47 %) 23.4 L 24.9 L MCV (81.0 - 99.0 FL) 91.0 90.3 MCH (27.0 - 31.0 PG) 30.7 30.4 MCHC (33.0 - 37.0 G/DL) 33.7 33.7 RDW (11.5 - 14.5 %) 16.4 H 15.6 H Plt Count (130 - 400 /CUMM) 188 165 MPV (7.4 - 10.4 FL) 9.1 8.5 Gran % (42.2 - 75.2 %) 86.9 H 87.2 H Lymphocytes % (20.5 - 51.1 %) 4.5 L 4.6 L Monocytes % (1.7 - 9.3 %) 8.6 8.1 Eosinophils % (0 - 5 %) 0 0.1 Basophils % (0.0 - 2.0 %) 0 0 Absolute Granulocytes (1.4 - 6.5 /CUMM) 16.2 H 14.0 H Segmented Neutrophils (42.2 - 75.2 %) 80 H Band Neutrophils (0.0 - 5.0 %) 2 Absolute Lymphocytes (1.2 - 3.4 /CUMM) 0.8 L 0.7 L Lymphocytes (20.5 - 51.1 %) 6 L Monocytes (1.7 - 9.3 %) 12 H Absolute Monocytes (0.10 - 0.60 /CUMM) 1.6 H 1.3 H Absolute Eosinophils (0.0 - 0.7 /CUMM) 0 0 Absolute Basophils (0.0 - 0.2 /CUMM) 0 0 Platelet Estimate (ADEQUATE) ADEQUATE Polychromasia 1+ Poikilocytosis 1+ Basophilic Stippling 1+ Ovalocytes 1+ Other Body Source Fld Total RBCs Counted (%) 100 Imaging/Other Studies: None new
[2018-02-27 16:00] VITALS: BP 136/52
[2018-02-27 22:33] LABS: ABSOLUTE BASOPHIL COUNT 0 /CUMM (0.0-0.2); ABSOLUTE EOSINOPHIL COUNT 0.1 /CUMM (0.0-0.7); ABSOLUTE LYMPH COUNT 1.1 /CUMM (1.2-3.4); ABSOLUTE MONOCYTE COUNT 1.4 /CUMM (0.10-0.60); BASOPHIL % 0 % (0.0-2.0); EOSINOPHIL % 0.8 % (0-5); GRANULOCYTE % 82.3 % (42.2-75.2); HEMATOCRIT 25.5 % (37-47); MEAN CORPUSCULAR HGB 30.3 PG (27.0-31.0); MEAN CORPUSCULAR HGB CONC 33.7 G/DL (33.0-37.0); MEAN PLATELET VOLUME 8.1 FL (7.4-10.4); PLATELET COUNT 223 /CUMM (130-400); RBC DISTRIBUTION WIDTH 16.4 % (11.5-14.5); RED BLOOD CELL CT 2.83 /CUMM (4.20-5.40); WHITE BLOOD CELL COUNT 14.6 /CUMM (4.8-10.8)
[2018-02-27 23:00] VITALS: BP 150/60
[2018-02-28 05:49] LABS: ABSOLUTE BASOPHIL COUNT 0 /CUMM (0.0-0.2); ABSOLUTE EOSINOPHIL COUNT 0.2 /CUMM (0.0-0.7); ABSOLUTE GRANULOCYTE CT 11.1 /CUMM (1.4-6.5); ABSOLUTE LYMPH COUNT 0.8 /CUMM (1.2-3.4); ABSOLUTE MONOCYTE COUNT 1.3 /CUMM (0.10-0.60); BASOPHIL % 0 % (0.0-2.0); EOSINOPHIL % 1.2 % (0-5); GRANULOCYTE % 82.5 % (42.2-75.2); MEAN CORPUSCULAR HGB 30.3 PG (27.0-31.0); MEAN CORPUSCULAR HGB CONC 33.8 G/DL (33.0-37.0); MEAN CORPUSCULAR VOLUME 89.7 FL (81.0-99.0); MEAN PLATELET VOLUME 7.6 FL (7.4-10.4); PLATELET COUNT 230 /CUMM (130-400); RBC DISTRIBUTION WIDTH 16.5 % (11.5-14.5); WHITE BLOOD CELL COUNT 13.5 /CUMM (4.8-10.8)
--- NOTE | 2018-02-28 07:17 | PN- Resident CRCU ---
Chema TERRY,Tao 02/28/18 0717: Subjective HPI/CRCU Issues: Patient is seen and examined at the bedside. She was feeling much comfortable. She wanted to move around. Discussed with the nursing staff. 24 Hour Events: Vital signs-97.2, heart rate 80, atrial fibrillation, respiratory rate 20, blood pressure 166/73, SPO2 97% on 3 L of nasal cannula. Intake/output-1630/1300 Objective Vital Signs & I&O Last 8 Hrs of Vitals and I&O: Intake & Output 02/28 0800 Intake Total 240 Output Total 700 Balance -460 Intake, Oral 240 Number 0 Bowel Movements Output, Urine 700 Exam General Appearance: well developed/nourished, no apparent distress, alert, awake , comfortable Respiratory: normal breath sounds, chest non-tender Cardiovascular: normal peripheral pulses, irregularly irregular Gastrointestinal: soft, non-tender, distended Extremities: normal inspection, normal capillary refill Cranial Nerves: normal speech Current Medications: Current Medications Sig/Mauro Start time Last Medication Dose Route Stop Time Status Admin Hydromorphone HCl 0.2 MG Q6P PRN 02/26 0815 AC IV Insulin Aspart 0 TIDAC 02/25 1200 AC 02/27 SC 1629 Levothyroxine Sodium 0.075 MG 0700 02/28 0700 AC 02/28 PO 0619 Levothyroxine Sodium 0.075 MG DAILY 02/24 1131 DC 02/27 PO 0747 Ondansetron HCl 4 MG Q6P PRN 02/24 1045 AC 02/24 IV 1644 Simethicone 40 MG Q4P PRN 02/26 1100 AC 02/26 PO 1140 Tramadol HCl 50 MG Q12P PRN 02/26 0945 AC PO Impression/Plan Impression/Problem List Impression: Patient is an 78-year-old female with significant past medical history of hypertension, hyperlipidemia, hypothyroidism, type 2 diabetes, obstructive sleep apnea on CPAP, hereditary Vitiligo, chronic atrial fibrillation on Coumadin, presented after an episode of emotional stress ( of grandson), leading to syncopal episode and left flank pain and found to have left-sided retroperitoneal/perinephric hematoma. Vital signs-temperature 99.4, pulse 91, atrial fibrillation, respiratory rate 20 , blood pressure 169/80, CPAP with oxygen with SPO2 97% intake/output-2040/870; positive balance since admission -13945/3274. Assessment and plan- Transfer to telemetry floor(02/28/2018) Left retroperitoneal hematoma adjacent to left mid to lower kidney/left perinephric space, hemodynamically stable - CTA neg for arterial bleed -Hb 8.8 * Goal of Hb >8; incentive spiromery, ALPS * CBC every 12 hourly * Last PT/INR -1.2(02/27/2018) * Her pain has been improved and denies for any nausea. * Stop inj Dilaudid * We will avoid nephrotoxic medications * Patient is awair of all her situation and want to have treatment in the [facility], doesnt want surgery, and if needed than change care to palliative/comfort care. * f/u Hb is 8.0. We will recheck in 12 hrs and if decreased by 1 point than will transfuse 1 Unit PRBC. Supratherapeutic INR -resolved * Last PT/INR -1.2(02/27/2018) * Completed course of Tab Vit K 10mg x 3 doses * Watch for bleeding. Type II [place], Demand ischemia - * Her troponins was stabilized 0.23, she is asymptomatic. * Follow-up echocardiogram -LVEF 60-65, no regional wall motion abnormality, RVSP 60. * Her last echocardiogram shows ejection fraction of 65%(2012). * We'll follow the cardiology recommendation Acute kidney injury, anuric converted to oliguric possible ATN- Cr -2.0 ( improved) * Will follow nephrology recommendations * Strict intake output charting. * Continue Christianson catheterization; remove tmr * Avoid nephrotoxic medication including NSAIDs Atrial fibrillation with controlled ventricular rate, Coumadin on hold - * We will continue to hold anticoagulant * If needed then we will give FFP. * Patient is at high risk of stroke,continue ALPS. Type 2 diabetes mellitus- * Blood sugar charting 3 times daily/at bedtime. * NovoLog according to the sliding scale. * Full liquid diet Chronic medical condition-hypothyroidism, hypertension, hyperlipidemia, obstructive sleep apnea- * Continue tablet levothyroxin 75mcg daily * We will hold antihypertensive for now until she stabilized * CPAP while sleeping. CODE STATUS -DNR/DNI. DVT prophylaxis -ALPS, avoid Coumadin, heparin Diet -Consistent carbohydrate 2 diet Problem List: 1. Retroperitoneal bleed Pain Ratin Pain Location: Left side of middle and lower abdomen Tomorrow's Labs & Rationales: Follow-up CBC, IC bundle. Plan DVT/Prophylaxis: Jonas Madera MD 02/28/18 0924: Attending MD Review Statement Attending Sign Off Attending Cosign Statement: I have: examined this patient, reviewed avalbl EMR data, personally reviewd images, discussd w/resident/PA/MANAGER RESEARCH, discussed mgmt plan w/mariusz, discussed mgmt plan w/CM, discussed mgmt plan w/pt, agreed w/resident/PA/MANAGER RESEARCH, amended to note. Other Findings: IJonas M.D. have examined this patient, reviewed available EMR data, personally reviewed images, discussed with resident/PA/MANAGER RESEARCH, discussed management plan with housestaff and nursing staff, discussed managment plan all of healthcare providers, discussed management plan with patient and/or family, agreed with resident/PA/MANAGER RESEARCH. The past history and parts of the chart have been autopopulated. Impression 78 year old woman * left sided retroperitoneal localized bleed * acute blood loss anemia * MONSERRAT/ATN * a.fib Plan -a/c held, risk understood for lack of a/c for a.fib in setting of acute anemia/ bleed -cardiology, nephorlogy, urology consultations reviewed and will follow recommendations -monitor cbc, coags -s/p blood transfusions - goal hgb >8 -monitor urine output -pain control -incentive spirometry -no brisk bleed was seen on CTA, pt has decided against any surgical interventions, she would agree with conservative medical management at this time -will evaluate renal lesion with MRI if feasible after acute illness ALPS for DVT prophylaxis at all times TTS 35 min Discussed with patient, housestaff, family at bedside Downgrade to telemetry
[2018-02-28 08:00] VITALS: BP 124/60
--- NOTE | 2018-02-28 08:02 | PN- Urology ---
Subjective Subjective: Continues to feel better. L side abd pain essentially resolved Objective Vital Signs and I&Os Vital Signs Date Time Temp Pulse Resp B/P B/P Pulse O2 O2 Flow FiO2 Mean Ox Delivery Rate 02/28 0400 97 CPAP 3.0L 02/28 0000 99 CPAP 3.0L 02/27 2300 97.6 59 18 150/60 99 CPAP 3.0L 02/27 2000 97 CPAP 3.0L 02/27 1913 96 CPAP 3.0L 02/27 1600 97.3 85 24 136/52 94 Nasal 3.0L Cannula 02/27 1600 94 Nasal 3.0L Cannula 02/27 1140 95 Nasal 3.0L Cannula 02/27 0800 97.5 84 156/66 20 Nasal 3.0L Cannula 02/27 0800 98 Nasal 3.0L Cannula Intake & Output 02/28 0800 02/28 0000 02/27 1600 02/27 0800 02/27 0000 02/26 1600 Intake Total 240 790 600 984 130 0272 Output Total 700 350 250 300 270 300 Balance -460 440 350 180 -30 1020 Intake, Blood 350 Product Intake, IV 0 0 600 Intake, Oral 240 440 600 480 240 720 Number 0 1 1 0 Bowel Movements Output, Urine 700 350 250 300 270 300 Patient 216 lb Weight Abd: soft and non tender Genitalia: ayers in place draining clear urine Hct has stabilized. Renal fxn continues to improve Laboratory Tests 02/28 02/27 0534 2109 Chemistry Sodium (137 - 145 mmol/L) 133 L Potassium (3.5 - 5.1 mmol/L) 4.4 Chloride (98 - 107 mmol/L) 98 Carbon Dioxide (22 - 30 mmol/L) 25 Anion Gap (5 - 16) 10 BUN (7 - 17 mg/dL) 87 H Creatinine (0.5 - 1.0 mg/dL) 2.0 H Estimated GFR (>60 ml/min) 24 L Glucose (65 - 99 mg/dL) 185 H Calcium (8.4 - 10.2 mg/dL) 8.7 Phosphorus (2.5 - 4.5 mg/dL) 2.8 Magnesium (1.6 - 2.3 mg/dL) 3.0 H Total Bilirubin (0.2 - 1.3 mg/dL) 1.2 AST (14 - 36 U/L) 26 ALT (9 - 52 U/L) 41 Albumin (3.5 - 5.0 g/dL) 3.0 L Hematology CBC w Diff NO MAN DIFF REQ NO MAN DIFF REQ WBC (4.8 - 10.8 /CUMM) 13.5 H 14.6 H RBC (4.20 - 5.40 /CUMM) 2.90 L 2.83 L Hgb (12.0 - 16.0 G/DL) 8.8 L 8.6 L Hct (37 - 47 %) 26.0 L 25.5 L MCV (81.0 - 99.0 FL) 89.7 90.0 MCH (27.0 - 31.0 PG) 30.3 30.3 MCHC (33.0 - 37.0 G/DL) 33.8 33.7 RDW (11.5 - 14.5 %) 16.5 H 16.4 H Plt Count (130 - 400 /CUMM) 230 223 MPV (7.4 - 10.4 FL) 7.6 8.1 Gran % (42.2 - 75.2 %) 82.5 H 82.3 H Lymphocytes % (20.5 - 51.1 %) 6.3 L 7.5 L Monocytes % (1.7 - 9.3 %) 10.0 H 9.4 H Eosinophils % (0 - 5 %) 1.2 0.8 Basophils % (0.0 - 2.0 %) 0 0 Absolute Granulocytes (1.4 - 6.5 /CUMM) 11.1 H 12.0 H Absolute Lymphocytes (1.2 - 3.4 /CUMM) 0.8 L 1.1 L Absolute Monocytes (0.10 - 0.60 /CUMM) 1.3 H 1.4 H Absolute Eosinophils (0.0 - 0.7 /CUMM) 0.2 0.1 Absolute Basophils (0.0 - 0.2 /CUMM) 0 0 02/27 02/27 1800 1314 Hematology CBC w Diff Cancelled NO MAN DIFF REQ WBC (4.8 - 10.8 /CUMM) Cancelled 13.9 H RBC (4.20 - 5.40 /CUMM) Cancelled 2.52 L Hgb (12.0 - 16.0 G/DL) Cancelled 7.6 L Hct (37 - 47 %) Cancelled 22.5 L MCV (81.0 - 99.0 FL) Cancelled 89.4 MCH (27.0 - 31.0 PG) Cancelled 30.2 MCHC (33.0 - 37.0 G/DL) Cancelled 33.8 RDW (11.5 - 14.5 %) Cancelled 16.9 H Plt Count (130 - 400 /CUMM) Cancelled 223 MPV (7.4 - 10.4 FL) Cancelled 8.4 Gran % (42.2 - 75.2 %) 84.7 H Lymphocytes % (20.5 - 51.1 %) 5.7 L Monocytes % (1.7 - 9.3 %) 9.3 Eosinophils % (0 - 5 %) 0.3 Basophils % (0.0 - 2.0 %) 0 Absolute Granulocytes (1.4 - 6.5 /CUMM) 11.8 H Absolute Lymphocytes (1.2 - 3.4 /CUMM) 0.8 L Absolute Monocytes (0.10 - 0.60 /CUMM) 1.3 H Absolute Eosinophils (0.0 - 0.7 /CUMM) 0 Absolute Basophils (0.0 - 0.2 /CUMM) 0 Assessment/Plan Assessment/Plan Imp: 1. L retroperitoneal bleed originating from posterior aspect of L kidney in setting of supratherapeutic INR. Bleeding appears to have stopped as Hct has stabilized 2. MONSERRAT due to ATN from hypotention. Continues to improve Plan: 1. OK to be out of bed and advance diet 2. Decrease frequency of blood draws 3. Remain off anticoagulation for at least several more days 4. In a few weeks will need repeat renal imaging to exclude a L renal lesion as the source of the bleed. This will likley be MRI
--- NOTE | 2018-02-28 10:36 | PN- Nephrology ---
Assessment/Plan Nephrology Assessment: MONSERRAT - 2/2 ATN in the setting of hypotension from L perirenal bleed while on outpatient ARB/Lasix. Renal function improving. Fortunately does not appear to have developed contrast nephropathy from the CTA performed 3 days ago. L perirenal bleed - Worsening on CT imaging but no arterial bleeding on CTA. Hg stable. No clear mass on non-contrast CT imaging. Once she stabilizes, should probably have more dedicated imaging (preferably MR once renal function back to baseline) to see exactly what may have led to the bleeding. Urology is following. Hypoxia - pleural effusions noted on CT scan. Nonoliguric although UOP is not "brisk." If she were to have worsening respiratory status, would give PRN IV lasix (can do 40mg). Suggestion: -Would hold off on further IVF at this time given pleural effusions -40mg IV lasix PRN worsening SOB -Cont to closely monitor Hg and hemodynamics although agree that labs can be less frequent -Will eventually need more dedicated renal imaging once clinically back to baseline (preferably MR when renal function back to baseline) - Urology following -Cont to hold ARB/Metformin Please call [phone] with ?'s Subjective Subjective: SCr 2.0 900cc UOP Feeling well Objective Vital Signs and I&Os Vital Signs Date Time Temp Pulse Resp B/P B/P Pulse O2 O2 Flow FiO2 Mean Ox Delivery Rate 02/28 0800 96 Nasal 3.0L Cannula 02/28 0800 97.8 78 18 124/60 98 Nasal 3.0L Cannula 02/28 0400 97 CPAP 3.0L 02/28 0000 99 CPAP 3.0L 02/27 2300 97.6 59 18 150/60 99 CPAP 3.0L 02/27 2000 97 CPAP 3.0L 02/27 1913 96 CPAP 3.0L 02/27 1600 97.3 85 24 136/52 94 Nasal 3.0L Cannula 02/27 1600 94 Nasal 3.0L Cannula 02/27 1140 95 Nasal 3.0L Cannula Intake & Output 02/28 1600 02/28 0400 02/27 1600 02/27 0400 02/26 1600 02/26 0400 Intake Total 809 836 8287 240 2031.0 1506 Output Total 700 350 299 183 4452 325 Balance -460 440 530 -30 931.0 1181 Intake, Blood 350 1406 Product Intake, IV 0 1311.0 Intake, Oral 764 675 8840 240 720 100 Number 0 1 1 0 0 Bowel Movements Output, Urine 700 350 248 817 3047 325 Patient 216 lb Weight Physical Exam: Gen - NAD HEENT - supple CV - RRR, no m/r/g Chest - scant basilar crackles b/l, no wheezes/rhonchi Abd - soft, NTND Ext - warm, no edema Neuro - AOX3, grossly nonfocal Current Medications: Current Medications Sig/Mauro Start time Last Medication Dose Route Stop Time Status Admin Hydromorphone HCl 0.2 MG Q6P PRN 02/26 0815 DC IV Insulin Aspart 0 TIDAC 02/25 1200 AC 02/28 SC 0816 Levothyroxine Sodium 0.075 MG 0700 02/28 0700 AC 02/28 PO 0619 Levothyroxine Sodium 0.075 MG DAILY 02/24 1131 DC 02/27 PO 0747 Ondansetron HCl 4 MG Q6P PRN 02/24 1045 AC 02/24 IV 1644 Simethicone 40 MG Q4P PRN 02/26 1100 AC 02/26 PO 1140 Tramadol HCl 50 MG Q12P PRN 02/26 0945 AC PO Results Pertinent Lab Results: Laboratory Tests 02/28 02/27 0534 2109 Chemistry Sodium (137 - 145 mmol/L) 133 L Potassium (3.5 - 5.1 mmol/L) 4.4 Chloride (98 - 107 mmol/L) 98 Carbon Dioxide (22 - 30 mmol/L) 25 Anion Gap (5 - 16) 10 BUN (7 - 17 mg/dL) 87 H Creatinine (0.5 - 1.0 mg/dL) 2.0 H Estimated GFR (>60 ml/min) 24 L Glucose (65 - 99 mg/dL) 185 H Calcium (8.4 - 10.2 mg/dL) 8.7 Phosphorus (2.5 - 4.5 mg/dL) 2.8 Magnesium (1.6 - 2.3 mg/dL) 3.0 H Total Bilirubin (0.2 - 1.3 mg/dL) 1.2 AST (14 - 36 U/L) 26 ALT (9 - 52 U/L) 41 Albumin (3.5 - 5.0 g/dL) 3.0 L Hematology CBC w Diff NO MAN DIFF REQ NO MAN DIFF REQ WBC (4.8 - 10.8 /CUMM) 13.5 H 14.6 H RBC (4.20 - 5.40 /CUMM) 2.90 L 2.83 L Hgb (12.0 - 16.0 G/DL) 8.8 L 8.6 L Hct (37 - 47 %) 26.0 L 25.5 L MCV (81.0 - 99.0 FL) 89.7 90.0 MCH (27.0 - 31.0 PG) 30.3 30.3 MCHC (33.0 - 37.0 G/DL) 33.8 33.7 RDW (11.5 - 14.5 %) 16.5 H 16.4 H Plt Count (130 - 400 /CUMM) 230 223 MPV (7.4 - 10.4 FL) 7.6 8.1 Gran % (42.2 - 75.2 %) 82.5 H 82.3 H Lymphocytes % (20.5 - 51.1 %) 6.3 L 7.5 L Monocytes % (1.7 - 9.3 %) 10.0 H 9.4 H Eosinophils % (0 - 5 %) 1.2 0.8 Basophils % (0.0 - 2.0 %) 0 0 Absolute Granulocytes (1.4 - 6.5 /CUMM) 11.1 H 12.0 H Absolute Lymphocytes (1.2 - 3.4 /CUMM) 0.8 L 1.1 L Absolute Monocytes (0.10 - 0.60 /CUMM) 1.3 H 1.4 H Absolute Eosinophils (0.0 - 0.7 /CUMM) 0.2 0.1 Absolute Basophils (0.0 - 0.2 /CUMM) 0 0 02/27 02/27 1800 1314 Hematology CBC w Diff Cancelled NO MAN DIFF REQ WBC (4.8 - 10.8 /CUMM) Cancelled 13.9 H RBC (4.20 - 5.40 /CUMM) Cancelled 2.52 L Hgb (12.0 - 16.0 G/DL) Cancelled 7.6 L Hct (37 - 47 %) Cancelled 22.5 L MCV (81.0 - 99.0 FL) Cancelled 89.4 MCH (27.0 - 31.0 PG) Cancelled 30.2 MCHC (33.0 - 37.0 G/DL) Cancelled 33.8 RDW (11.5 - 14.5 %) Cancelled 16.9 H Plt Count (130 - 400 /CUMM) Cancelled 223 MPV (7.4 - 10.4 FL) Cancelled 8.4 Gran % (42.2 - 75.2 %) 84.7 H Lymphocytes % (20.5 - 51.1 %) 5.7 L Monocytes % (1.7 - 9.3 %) 9.3 Eosinophils % (0 - 5 %) 0.3 Basophils % (0.0 - 2.0 %) 0 Absolute Granulocytes (1.4 - 6.5 /CUMM) 11.8 H Absolute Lymphocytes (1.2 - 3.4 /CUMM) 0.8 L Absolute Monocytes (0.10 - 0.60 /CUMM) 1.3 H Absolute Eosinophils (0.0 - 0.7 /CUMM) 0 Absolute Basophils (0.0 - 0.2 /CUMM) 0 02/27 02/26 0416 1738 Chemistry Sodium (137 - 145 mmol/L) 136 L Potassium (3.5 - 5.1 mmol/L) 4.4 Chloride (98 - 107 mmol/L) 101 Carbon Dioxide (22 - 30 mmol/L) 19 L Anion Gap (5 - 16) 16 BUN (7 - 17 mg/dL) 84 H Creatinine (0.5 - 1.0 mg/dL) 2.2 H Estimated GFR (>60 ml/min) 21 L Glucose (65 - 99 mg/dL) 191 H Calcium (8.4 - 10.2 mg/dL) 9.0 Phosphorus (2.5 - 4.5 mg/dL) 4.1 Magnesium (1.6 - 2.3 mg/dL) 3.1 H Total Bilirubin (0.2 - 1.3 mg/dL) 1.4 H AST (14 - 36 U/L) 34 ALT (9 - 52 U/L) 44 Albumin (3.5 - 5.0 g/dL) 3.1 L Hematology CBC w Diff NO MAN DIFF REQ NO MAN DIFF REQ WBC (4.8 - 10.8 /CUMM) 14.7 H 18.5 H RBC (4.20 - 5.40 /CUMM) 2.61 L 2.76 L Hgb (12.0 - 16.0 G/DL) 8.0 L 8.4 L Hct (37 - 47 %) 23.2 L 24.8 L MCV (81.0 - 99.0 FL) 89.0 89.9 MCH (27.0 - 31.0 PG) 30.9 30.5 MCHC (33.0 - 37.0 G/DL) 34.7 34.0 RDW (11.5 - 14.5 %) 16.7 H 16.8 H Plt Count (130 - 400 /CUMM) 204 199 MPV (7.4 - 10.4 FL) 8.3 8.3 Gran % (42.2 - 75.2 %) 84.9 H 85.8 H Lymphocytes % (20.5 - 51.1 %) 5.1 L 4.1 L Monocytes % (1.7 - 9.3 %) 9.6 H 10.1 H Eosinophils % (0 - 5 %) 0.1 0 Basophils % (0.0 - 2.0 %) 0.3 0 Absolute Granulocytes (1.4 - 6.5 /CUMM) 12.5 H 15.9 H Absolute Lymphocytes (1.2 - 3.4 /CUMM) 0.8 L 0.8 L Absolute Monocytes (0.10 - 0.60 /CUMM) 1.4 H 1.9 H Absolute Eosinophils (0.0 - 0.7 /CUMM) 0 0 Absolute Basophils (0.0 - 0.2 /CUMM) 0 0 12 / 1442 0915 Hematology CBC w Diff NO MAN DIFF REQ NO MAN DIFF REQ WBC (4.8 - 10.8 /CUMM) 17.9 H 19.0 H RBC (4.20 - 5.40 /CUMM) 2.73 L 2.44 L Hgb (12.0 - 16.0 G/DL) 8.3 L 7.4 *L Hct (37 - 47 %) 24.3 L 21.6 L MCV (81.0 - 99.0 FL) 89.2 88.6 MCH (27.0 - 31.0 PG) 30.4 30.3 MCHC (33.0 - 37.0 G/DL) 34.0 34.2 RDW (11.5 - 14.5 %) 16.6 H 17.1 H Plt Count (130 - 400 /CUMM) 197 183 MPV (7.4 - 10.4 FL) 8.0 8.2 Gran % (42.2 - 75.2 %) 88.2 H 88.8 H Lymphocytes % (20.5 - 51.1 %) 3.7 L 3.0 L Monocytes % (1.7 - 9.3 %) 8.1 8.1 Eosinophils % (0 - 5 %) 0 0 Basophils % (0.0 - 2.0 %) 0 0.1 Absolute Granulocytes (1.4 - 6.5 /CUMM) 15.8 H 16.8 H Absolute Lymphocytes (1.2 - 3.4 /CUMM) 0.7 L 0.6 L Absolute Monocytes (0.10 - 0.60 /CUMM) 1.4 H 1.5 H Absolute Eosinophils (0.0 - 0.7 /CUMM) 0 0 Absolute Basophils (0.0 - 0.2 /CUMM) 0 0 12 02/26 06 0905 0350 0005 Chemistry Sodium (137 - 145 mmol/L) 136 L Potassium (3.5 - 5.1 mmol/L) 4.3 Chloride (98 - 107 mmol/L) 99 Carbon Dioxide (22 - 30 mmol/L) 20 L Anion Gap (5 - 16) 18 H BUN (7 - 17 mg/dL) 71 H Creatinine (0.5 - 1.0 mg/dL) 2.4 H Estimated GFR (>60 ml/min) 19 L Glucose (65 - 99 mg/dL) 186 H Calcium (8.4 - 10.2 mg/dL) 8.9 Phosphorus (2.5 - 4.5 mg/dL) 4.7 H Magnesium (1.6 - 2.3 mg/dL) 2.8 H Total Bilirubin (0.2 - 1.3 mg/dL) 1.4 H AST (14 - 36 U/L) 63 H ALT (9 - 52 U/L) 57 H Albumin (3.5 - 5.0 g/dL) 3.4 L Coagulation PT (9.4 - 12.5 SEC) 14.0 H INR (0.90 - 1.19) 1.28 H Hematology CBC w Diff MAN DIFF ORDERED Cancelled WBC (4.8 - 10.8 /CUMM) 18.9 H Cancelled RBC (4.20 - 5.40 /CUMM) 2.56 L Cancelled Hgb (12.0 - 16.0 G/DL) 7.9 L Cancelled Hct (37 - 47 %) 22.9 L Cancelled MCV (81.0 - 99.0 FL) 89.5 Cancelled MCH (27.0 - 31.0 PG) 30.7 Cancelled MCHC (33.0 - 37.0 G/DL) 34.3 Cancelled RDW (11.5 - 14.5 %) 16.7 H Cancelled Plt Count (130 - 400 /CUMM) 181 Cancelled MPV (7.4 - 10.4 FL) 8.4 Cancelled Gran % (42.2 - 75.2 %) 89.4 H Lymphocytes % (20.5 - 51.1 %) 3.2 L Monocytes % (1.7 - 9.3 %) 7.0 Eosinophils % (0 - 5 %) 0 Basophils % (0.0 - 2.0 %) 0.4 Absolute Granulocytes (1.4 - 6.5 /CUMM) 16.9 H Absolute Lymphocytes (1.2 - 3.4 /CUMM) 0.6 L Absolute Monocytes (0.10 - 0.60 /CUMM) 1.3 H Absolute Eosinophils (0.0 - 0.7 /CUMM) 0 Absolute Basophils (0.0 - 0.2 /CUMM) 0.1 Platelet Estimate (ADEQUATE) ADEQUATE Poikilocytosis 1+ Basophilic Stippling 1+ Anisocytosis 1+ Ovalocytes 1+ 02/25 02/25 2320 1430 Chemistry Sodium (137 - 145 mmol/L) 133 L Potassium (3.5 - 5.1 mmol/L) 4.2 Chloride (98 - 107 mmol/L) 99 Carbon Dioxide (22 - 30 mmol/L) 22 Anion Gap (5 - 16) 12 BUN (7 - 17 mg/dL) 64 H Creatinine (0.5 - 1.0 mg/dL) 2.6 H Estimated GFR (>60 ml/min) 18 L Glucose (65 - 99 mg/dL) 167 H Calcium (8.4 - 10.2 mg/dL) 8.8 Phosphorus (2.5 - 4.5 mg/dL) 4.7 H Magnesium (1.6 - 2.3 mg/dL) 2.9 H Total Bilirubin (0.2 - 1.3 mg/dL) 1.2 AST (14 - 36 U/L) 101 H ALT (9 - 52 U/L) 71 H Albumin (3.5 - 5.0 g/dL) 3.3 L Hematology CBC w Diff MAN DIFF ORDERED MAN DIFF ORDERED WBC (4.8 - 10.8 /CUMM) 19.1 H 20.8 H RBC (4.20 - 5.40 /CUMM) 2.60 L 2.32 L Hgb (12.0 - 16.0 G/DL) 7.9 L 7.2 *L Hct (37 - 47 %) 22.9 L 21.1 L MCV (81.0 - 99.0 FL) 87.8 91.0 MCH (27.0 - 31.0 PG) 30.2 30.8 MCHC (33.0 - 37.0 G/DL) 34.4 33.9 RDW (11.5 - 14.5 %) 16.6 H 16.4 H Plt Count (130 - 400 /CUMM) 163 192 MPV (7.4 - 10.4 FL) 8.5 8.5 Gran % (42.2 - 75.2 %) 89.3 H 87.5 H Lymphocytes % (20.5 - 51.1 %) 3.9 L 3.7 L Monocytes % (1.7 - 9.3 %) 6.5 8.7 Eosinophils % (0 - 5 %) 0 0 Basophils % (0.0 - 2.0 %) 0.3 0.1 Absolute Granulocytes (1.4 - 6.5 /CUMM) 17.0 H 18.2 H Segmented Neutrophils (42.2 - 75.2 %) 89 H Band Neutrophils (0.0 - 5.0 %) 5 Absolute Lymphocytes (1.2 - 3.4 /CUMM) 0.8 L 0.8 L Lymphocytes (20.5 - 51.1 %) 2 L Monocytes (1.7 - 9.3 %) 4 Absolute Monocytes (0.10 - 0.60 /CUMM) 1.2 H 1.8 H Absolute Eosinophils (0.0 - 0.7 /CUMM) 0 0 Absolute Basophils (0.0 - 0.2 /CUMM) 0.1 0 Platelet Estimate (ADEQUATE) ADEQUATE VERIFIED BY SMEAR Normocytic RBCs VERIFIED Normochromic RBCs VERIFIED Polychromasia 1+ Imaging/Other Studies: None new
[2018-02-28 14:18] VITALS: BP 148/60
--- NOTE | 2018-02-28 15:57 | Transfer of Care Summary ---
Hospital Course Course Hospital Course: Patient is an 78-year-old female with significant past medical history of hypertension, hyperlipidemia, hypothyroidism, type 2 diabetes, obstructive sleep apnea on CPAP, hereditary Vitiligo, chronic atrial fibrillation on Coumadin, presented after an episode of emotional stress ( of grandson), leading to syncopal episode and left flank pain and found to have left-sided retroperitoneal/perinephric hematoma. CUrrent Diagnosis - * Left retroperitoneal hematoma adjacent to left mid to lower kidney/left perinephric space, hemodynamically stable - CTA neg for arterial bleed * Supratherapeutic INR -resolved * Type II [place], Demand ischemia * Acute kidney injury, anuric converted to oliguric possible ATN- Cr -2.0 ( improved) * Atrial fibrillation with controlled ventricular rate, Coumadin on hold * Type 2 diabetes mellitus * Chronic medical condition-hypothyroidism, hypertension, hyperlipidemia, obstructive sleep apnea In Emergency patient was hypotensive(97/47), lethargic, having atrial fibrillation. She was complaining of left sided abdominal pain. On blood workup she was having low hemoglobin 10.3(baseline -11), high INR -6.7, elevated troponin(max 0.23). We holded her home medication and it was decided to resuscitate with IV fluids and the blood and admitted into the ICU for further evaluation and management. We gave tablet vitamin K [address] abdomen pelvis showed left-sided perinephric hematoma.Follow-up echocardiogram -LVEF 60-65, no regional wall motion abnormality, RVSP 60.Urology consult was made who advised for conservative management.After 24 hour, she became anuric secondary to ATN and creatinine goes up(creatinine max 2.8). We obtained nephrology consult who was advised for conservative management and regularly blood workup. Despite of blood transfusion patient continues to have drop in the hemoglobin around one- point in 12 hours. We discussed with the family and decided for CTA to rule out any arterial bleeding. Follow up CTA was negative for any active arterial bleeding. We continued to treat patient conservatively. Since last 24 hour her hemoglobin has been stabilized in the range of 8 and her last PT/INR was 1.2. The goal of hemoglobin is 8. We follow the cardiology recommendation regarding, restarting diuretic and anticoagulant. Pain was controlled with the Dilaudid 0.2 mg as needed. Patient is highly responsive to Dilaudid even increasing the dose to 0.4 should become more drowsy. Currently she is on tablet tramadol 50 mg twice daily. At her baseline she uses CPAP at night. It even during the daytime and she was sleeping that helped her. We controlled diabetes by giving NovoLog insulin according to the sliding scale. Assessment/Plan: Plan - * Goal of Hb >8; incentive spiromery, ALPS * Regular monitoring of CBC every 12. * Currently on tablet tramadol 50 mg twice daily. * Watch for bleeding. * Her troponins was stabilized 0.23, she is asymptomatic. * Follow the cardiology recommendation * Follow nephrology/urology recommendations * Strict intake output charting. * Continue [facility] catheterization and remove tmr. * Avoid nephrotoxic medication including NSAIDs * Continue to hold anticoagulant * Patient is at high risk of stroke,continue ALPS. * Blood sugar charting 3 times daily/at bedtime. * NovoLog according to the sliding scale. * Consistent carbohydrate to diet * Continue tablet levothyroxin 75mcg daily * We will hold antihypertensive for now until she stabilized * CPAP whenever she sleep. CODE STATUS -DNR/DNI. Patient is awair of her situation and want to have treatment in the [facility], doesnt want surgery, and if needed than change care to palliative/ comfort care.
--- NOTE | 2018-02-28 16:13 | PN- Cardiology ---
Subjective Subjective: stable. Appears much brighter today. No new complaints Objective Vital Signs and I&Os Vital Signs Date Time Temp Pulse Resp B/P B/P Pulse O2 O2 Flow FiO2 Mean Ox Delivery Rate 02/28 1418 97.3 73 20 148/60 95 Room Air 02/28 0800 96 Nasal 3.0L Cannula 02/28 0800 97.8 78 18 124/60 98 Nasal 3.0L Cannula 02/28 0400 97 CPAP 3.0L 02/28 0000 99 CPAP 3.0L 02/27 2300 97.6 59 18 150/60 99 CPAP 3.0L 02/28 2000 97 CPAP 3.0L 02/27 1913 96 CPAP 3.0L Intake & Output 02/28 1600 02/28 0800 02/28 0000 02/27 1600 02/27 0800 02/27 0000 Intake Total 400 240 790 600 480 240 Output Total 650 700 350 250 300 270 Balance -250 -460 440 350 180 -30 Intake, Blood 350 Product Intake, IV 0 0 Intake, Oral 400 240 440 600 480 240 Number 0 1 1 0 Bowel Movements Output, Urine 650 700 350 250 300 270 Current Medications: Current Medications Sig/Mauro Start time Last Medication Dose Route Stop Time Status Admin Hydromorphone HCl 0.2 MG Q6P PRN 02/26 0815 DC IV Insulin Aspart 0 TIDAC 02/25 1200 AC 02/28 SC 1134 Levothyroxine Sodium 0.075 MG 0700 02/28 0700 AC 02/28 PO 0619 Levothyroxine Sodium 0.075 MG DAILY 02/24 1131 DC 02/27 PO 0747 Ondansetron HCl 4 MG Q6P PRN 02/24 1045 AC 02/24 IV 1644 Simethicone 40 MG Q4P PRN 02/26 1100 AC 02/26 PO 1140 Tramadol HCl 50 MG Q12P PRN 02/26 0945 AC PO Results Last 48 Hrs of Labs/Mics: Laboratory Tests 02/28/18 0534: Anion Gap 10, Estimated GFR 24 L, Glucose 185 H, Calcium 8.7, Phosphorus 2.8, Magnesium 3.0 H, Total Bilirubin 1.2, AST 26, ALT 41, Albumin 3.0 L, CBC w Diff NO MAN DIFF REQ, RBC 2.90 L, MCV 89.7, MCH 30.3, MCHC 33.8, RDW 16.5 H, MPV 7.6, Gran % 82.5 H, Lymphocytes % 6.3 L, Monocytes % 10.0 H, Eosinophils % 1.2, Basophils % 0, Absolute Granulocytes 11.1 H, Absolute Lymphocytes 0.8 L , Absolute Monocytes 1.3 H, Absolute Eosinophils 0.2, Absolute Basophils 0 02/27/18 2109: CBC w Diff NO MAN DIFF REQ, RBC 2.83 L, MCV 90.0, MCH 30.3, MCHC 33.7, RDW 16.4 H, MPV 8.1, Gran % 82.3 H, Lymphocytes % 7.5 L, Monocytes % 9.4 H, Eosinophils % 0.8, Basophils % 0, Absolute Granulocytes 12.0 H, Absolute Lymphocytes 1.1 L, Absolute Monocytes 1.4 H, Absolute Eosinophils 0.1, Absolute Basophils 0 02/27/18 1800: CBC w Diff Cancelled, WBC Cancelled, RBC Cancelled, Hgb Cancelled, Hct Cancelled , MCV Cancelled, MCH Cancelled, MCHC Cancelled, RDW Cancelled, Plt Count Cancelled, MPV Cancelled 02/27/18 1314: CBC w Diff NO MAN DIFF REQ, RBC 2.52 L, MCV 89.4, MCH 30.2, MCHC 33.8, RDW 16.9 H, MPV 8.4, Gran % 84.7 H, Lymphocytes % 5.7 L, Monocytes % 9.3, Eosinophils % 0.3, Basophils % 0, Absolute Granulocytes 11.8 H, Absolute Lymphocytes 0.8 L , Absolute Monocytes 1.3 H, Absolute Eosinophils 0, Absolute Basophils 0 02/27/18 0416: Anion Gap 16, Estimated GFR 21 L, Glucose 191 H, Calcium 9.0, Phosphorus 4.1, Magnesium 3.1 H, Total Bilirubin 1.4 H, AST 34, ALT 44, Albumin 3.1 L, CBC w Diff NO MAN DIFF REQ, RBC 2.61 L, MCV 89.0, MCH 30.9, MCHC 34.7, RDW 16.7 H, MPV 8.3, Gran % 84.9 H, Lymphocytes % 5.1 L, Monocytes % 9.6 H, Eosinophils % 0.1, Basophils % 0.3, Absolute Granulocytes 12.5 H, Absolute Lymphocytes 0.8 L , Absolute Monocytes 1.4 H, Absolute Eosinophils 0, Absolute Basophils 0 02/26/18 1278: CBC w Diff NO MAN DIFF REQ, RBC 2.76 L, MCV 89.9, MCH 30.5, MCHC 34.0, RDW 16.8 H, MPV 8.3, Gran % 85.8 H, Lymphocytes % 4.1 L, Monocytes % 10.1 H, Eosinophils % 0, Basophils % 0, Absolute Granulocytes 15.9 H, Absolute Lymphocytes 0.8 L, Absolute Monocytes 1.9 H, Absolute Eosinophils 0, Absolute Basophils 0 Assessment/Plan Assessment/Plan Assessment: 1. Atrial fibrillation, anticoagulated on warfarin 2. Supratherapeutic INR, improved-INR 1.2 today 3. Mild troponin elevation 4. hemorrhagic shock l secondary to retroperitoneal hematoma recommendations: -Anticoagulation on hold. status post therapy with vitamin K. -Out of bed as tolerated -I had an extended discussion with the patient and the family today about her atrial fibrillation and anticoagulation status. The anticoagulation is on hold for the foreseeable future. If, after further discussion, the patient would be able to be anticoagulated short term in the future, we could consider her for atrial appendage exclusion device implantation for her atrial fibrillation. Continue telemetry? Yes
[2018-02-28 17:00] VITALS: BP 142/60
[2018-02-28 18:51] LABS: ABSOLUTE BASOPHIL COUNT 0 /CUMM (0.0-0.2); ABSOLUTE EOSINOPHIL COUNT 0.1 /CUMM (0.0-0.7); ABSOLUTE GRANULOCYTE CT 12.1 /CUMM (1.4-6.5); ABSOLUTE LYMPH COUNT 0.9 /CUMM (1.2-3.4); ABSOLUTE MONOCYTE COUNT 1.4 /CUMM (0.10-0.60); BASOPHIL % 0 % (0.0-2.0); EOSINOPHIL % 0.9 % (0-5); MEAN CORPUSCULAR HGB 30.3 PG (27.0-31.0); MEAN CORPUSCULAR HGB CONC 33.7 G/DL (33.0-37.0); MEAN CORPUSCULAR VOLUME 89.8 FL (81.0-99.0); MEAN PLATELET VOLUME 7.4 FL (7.4-10.4); PLATELET COUNT 265 /CUMM (130-400); RBC DISTRIBUTION WIDTH 16.3 % (11.5-14.5); RED BLOOD CELL CT 3.01 /CUMM (4.20-5.40); WHITE BLOOD CELL COUNT 14.6 /CUMM (4.8-10.8)
[2018-02-28 18:53] LABS: GRANULOCYTE % 82.8 % (42.2-75.2)
[2018-02-28 21:54] VITALS: BP 144/64
[2018-03-01 06:00] VITALS: BP 158/68
--- NOTE | 2018-03-01 07:23 | PN- Housestaff ---
See Addendum Subjective Follow-up For: Left-sided retroperitoneal bleed, ATN, type II CT Tele-Events Since Last Visit: Atrial fibrillation, 70s, with questionable 4 beat V. tach at 1706 Subjective: The patient was complaining that she did not sleep well because the CPAP machine goes in her mouth and sedative in her nose which is what she is used to. She says that the CPAP dries out her mouth and she does not like it. She used until about 3 or 330 this morning. Otherwise, she does not have any pain, chest pain, shortness of breath, dysuria, or nausea. She does have some abdominal fullness. She had a bowel movement yesterday. Review of Systems Constitutional: Reports: no symptoms. EENTM: Reports: no symptoms. Cardiovascular: Reports: no symptoms. Respiratory: Reports: no symptoms. Gastrointestinal: Reports: see HPI. Genitourinary: Reports: no symptoms. Musculoskeletal: Reports: no symptoms. Skin: Reports: no symptoms. Neurological/Psychological: Reports: no symptoms. Hematologic/Endocrine: Reports: no symptoms. Immunologic/Allergic: Reports: no symptoms. Objective Last 24 Hrs of Vital Signs/I&O Vital Signs Date Time Temp Pulse Resp B/P B/P Pulse O2 O2 Flow FiO2 Mean Ox Delivery Rate 03/01 0600 98.0 85 16 158/68 95 03/01 0000 95 CPAP 02/28 2154 98.7 64 18 144/64 95 Room Air 02/28 1700 98.1 77 18 142/60 96 Room Air 02/28 1600 Room Air 02/28 1418 97.3 73 20 148/60 95 Room Air 02/28 0800 96 Nasal 3.0L Cannula 02/28 0800 97.8 78 18 124/60 98 Nasal 3.0L Cannula Intake & Output 03/01 0800 03/01 0000 02/28 1600 Intake Total 400 420 400 Output Total 875 550 650 Balance -475 -130 -250 Intake, IV 20 Intake, Oral 400 400 400 Number 0 Bowel Movements Output, Urine 875 550 650 Physical Exam General Appearance: Alert, Oriented X3, Cooperative, No Acute Distress Skin: No Rashes (vitligo) Cardiovascular: irregular Lungs: Clear to Auscultation Abdomen: Normal Bowel Sounds, Soft, No Tenderness Extremities: No Edema, Normal Pulses, No Tenderness/Swelling Current Medications: Current Medications Sig/Mauro Start time Last Medication Dose Route Stop Time Status Admin Hydromorphone HCl 0.2 MG Q6P PRN 02/26 0815 DC IV Insulin Aspart 0 TIDAC 02/25 1200 AC 02/28 SC 1722 Levothyroxine Sodium 0.075 MG 0700 02/28 0700 AC 03/01 PO 0614 Ondansetron HCl 4 MG Q6P PRN 02/24 1045 AC 02/24 IV 1644 Simethicone 40 MG Q4P PRN 02/26 1100 AC 02/26 PO 1140 Tramadol HCl 50 MG Q12P PRN 02/26 0945 AC PO Last 24 Hrs of Lab/Sharan Results Last 24 Hrs of Labs/Mics: Laboratory Tests 03/01/18 0607: Sodium Pending, Potassium Pending, Chloride Pending, Carbon Dioxide Pending, Anion Gap Pending, BUN Pending, Creatinine Pending, Glucose Pending, Calcium Pending, Phosphorus Pending, Magnesium Pending, Total Bilirubin Pending, AST Pending, ALT Pending, Albumin Pending, CBC w Diff Pending, WBC Pending, RBC Pending, Hgb Pending, Hct Pending, MCV Pending, MCH Pending, MCHC Pending, RDW Pending, Plt Count Pending, MPV Pending 02/28/18 1825: CBC w Diff NO MAN DIFF REQ, RBC 3.01 L, MCV 89.8, MCH 30.3, MCHC 33.7, RDW 16.3 H, MPV 7.4, Gran % 82.8 H, Lymphocytes % 6.5 L, Monocytes % 9.8 H, Eosinophils % 0.9, Basophils % 0, Absolute Granulocytes 12.1 H, Absolute Lymphocytes 0.9 L, Absolute Monocytes 1.4 H, Absolute Eosinophils 0.1, Absolute Basophils 0 Assessment/Plan Assessment: Ms. Giron is an 78-year-old female with significant past medical history of hypertension, hyperlipidemia, hypothyroidism, type 2 diabetes, obstructive sleep apnea on CPAP, hereditary Vitiligo, chronic atrial fibrillation previously on warfarin, presented after a syncopal episodeand found to have left-sided retroperitoneal/perinephric hematoma. Problem list: 1. Left-sided retroperitoneal hematoma 2. Type II myocardial infarction 3. Acute tubular necrosis 4. Acute blood loss anemia 5. Supratherapeutic INR, resolved #Left-sided retroperitoneal hematoma: Patient presented after syncopal episode and was found to be hypotensive, lethargic, with left-sided abdominal pain. She was found to be anemic with supratherapeutic INR. She was fluid resuscitated and transferred to the ICU. She was given vitamin K. CT abdomen/pelvis showed left-sided perinephric hematoma. Urology was consulted and has recommended conservative management. CTA did not show any arterial bleed. The patient has refused transfer to an outside facility for more aggressive management and would like to be treated here. She has received 8 transfusions of packed red blood cell and 7 transfusions of FFP. Her hemoglobin has recently been stable. She was transferred to telemetry in 02/28/18 after stabilization of her condition. She feels well this morning but does note some abdominal fullness. -Appreciate urology recommendations -Daily CBC, hemoglobin goal greater than 8 -Continue pain control -Remove Christianson catheter -Holding warfarin -Patient will need renal MRI in a couple weeks #Type II myocardial infarction: Patient was found to have elevated troponins that peaked at 0.23. Cardiology has been consulted. This is likely a type II myocardial infarction in the setting of blood loss. -Appreciate cardiology recommendations -Telemetry monitoring #Acute tubular necrosis: Patient was found to have an acute kidney injury her creatinine peaked at 2.8. Nephrology was consulted and believes this is an acute tubular necrosis in the setting of hypotension from the bleed. Her renal function is improving. -Avoid nephrotoxins -40 mg IV furosemide as needed worsening shortness of breath -Holding ARB and metformin #Supratherapeutic INR, resolved: The patient's INR was 6.7 on arrival. On last check it was 1.28. We will continue to hold warfarin in the setting of bleeding. We will talk to cardiology and nephrology about restarting warfarin in the setting of atrial fibrillation. -Holding warfarin #Chronic medical problems: -Continue other home medications DVT prophylaxis with Alps Consistent carbohydrate 3 diet DNR/DNI Problem List: 1. Retroperitoneal bleed Pain Ratin Pain Location: no Pain Goal: Remain pain free Pain Plan: see a/p Tomorrow's Labs & Rationales: cbc,bep Consulting Request: Consulting Specialty: Nephrology
[2018-03-01 07:48] LABS: ABSOLUTE BASOPHIL COUNT 0 /CUMM (0.0-0.2); ABSOLUTE EOSINOPHIL COUNT 0.2 /CUMM (0.0-0.7); ABSOLUTE GRANULOCYTE CT 10.7 /CUMM (1.4-6.5); ABSOLUTE LYMPH COUNT 0.9 /CUMM (1.2-3.4); ABSOLUTE MONOCYTE COUNT 1.5 /CUMM (0.10-0.60); BASOPHIL % 0 % (0.0-2.0); EOSINOPHIL % 1.5 % (0-5); GRANULOCYTE % 80.4 % (42.2-75.2); HEMATOCRIT 26.1 % (37-47); MEAN CORPUSCULAR HGB 31.2 PG (27.0-31.0); MEAN CORPUSCULAR HGB CONC 34.3 G/DL (33.0-37.0); MEAN CORPUSCULAR VOLUME 90.9 FL (81.0-99.0); MEAN PLATELET VOLUME 7.9 FL (7.4-10.4); PLATELET COUNT 240 /CUMM (130-400); RBC DISTRIBUTION WIDTH 16.5 % (11.5-14.5); RED BLOOD CELL CT 2.87 /CUMM (4.20-5.40); WHITE BLOOD CELL COUNT 13.4 /CUMM (4.8-10.8)
--- NOTE | 2018-03-01 13:25 | PN- Cardiology ---
Subjective Subjective: Patient continues to appear well. Clinically improved. Out of bed. Objective Vital Signs and I&Os Vital Signs Date Time Temp Pulse Resp B/P B/P Pulse O2 O2 Flow FiO2 Mean Ox Delivery Rate 03/01 1301 Nasal 2.0L Cannula 03/01 0600 98.0 85 16 158/68 95 03/01 0000 95 CPAP 02/28 2154 98.7 64 18 144/64 95 Room Air 02/28 1700 98.1 77 18 142/60 96 Room Air 02/28 1600 Room Air 02/28 1418 97.3 73 20 148/60 95 Room Air Intake & Output 03/01 1600 03/01 0800 03/01 0000 02/28 1600 02/28 0800 02/28 0000 Intake Total 400 420 400 240 790 Output Total 875 550 650 700 350 Balance -475 -130 -250 -460 440 Intake, Blood 350 Product Intake, IV 20 Intake, Oral 400 400 400 240 440 Number 0 0 1 Bowel Movements Output, Urine 875 550 650 700 350 Current Medications: Current Medications Sig/Mauro Start time Last Medication Dose Route Stop Time Status Admin Furosemide 80 MG DAILY 03/01 1315 UNVr PO Insulin Aspart 0 TIDAC 02/25 1200 AC 03/01 SC 1212 Levothyroxine Sodium 0.075 MG 0700 02/28 0700 AC 03/01 PO 0614 Ondansetron HCl 4 MG Q6P PRN 02/24 1045 AC 02/24 IV 1644 Simethicone 40 MG Q4P PRN 02/26 1100 AC 02/26 PO 1140 Tramadol HCl 50 MG Q12P PRN 02/26 0945 AC PO Results Last 48 Hrs of Labs/Mics: Laboratory Tests 03/01/18 0607: Anion Gap 10, Estimated GFR 36 L, Glucose 161 H, Calcium 8.7, Phosphorus 2.6, Magnesium 2.6 H, Total Bilirubin 1.3, AST 25, ALT 33, Albumin 2.8 L, CBC w Diff MAN DIFF ORDERED, RBC 2.87 L, MCV 90.9, MCH 31.2 H, MCHC 34.3, RDW 16.5 H, MPV 7.9, Gran % 80.4 H, Lymphocytes % 7.0 L, Monocytes % 11.1 H, Eosinophils % 1.5, Basophils % 0, Absolute Granulocytes 10.7 H, Segmented Neutrophils 82 H, Band Neutrophils 3, Absolute Lymphocytes 0.9 L, Lymphocytes 3 L, Monocytes 10 H, Absolute Monocytes 1.5 H, Absolute Eosinophils 0.2, Absolute Basophils 0, Metamyelocytes 2 H, Nucleated RBCs 1 H, Platelet Estimate ADEQUATE, Polychromasia 1+, Poikilocytosis FEW, Anisocytosis 1+, Macrocytic Cells FEW 02/28/18 1825: CBC w Diff NO MAN DIFF REQ, RBC 3.01 L, MCV 89.8, MCH 30.3, MCHC 33.7, RDW 16.3 H, MPV 7.4, Gran % 82.8 H, Lymphocytes % 6.5 L, Monocytes % 9.8 H, Eosinophils % 0.9, Basophils % 0, Absolute Granulocytes 12.1 H, Absolute Lymphocytes 0.9 L, Absolute Monocytes 1.4 H, Absolute Eosinophils 0.1, Absolute Basophils 0 02/28/18 0534: Anion Gap 10, Estimated GFR 24 L, Glucose 185 H, Calcium 8.7, Phosphorus 2.8, Magnesium 3.0 H, Total Bilirubin 1.2, AST 26, ALT 41, Albumin 3.0 L, CBC w Diff NO MAN DIFF REQ, RBC 2.90 L, MCV 89.7, MCH 30.3, MCHC 33.8, RDW 16.5 H, MPV 7.6, Gran % 82.5 H, Lymphocytes % 6.3 L, Monocytes % 10.0 H, Eosinophils % 1.2, Basophils % 0, Absolute Granulocytes 11.1 H, Absolute Lymphocytes 0.8 L , Absolute Monocytes 1.3 H, Absolute Eosinophils 0.2, Absolute Basophils 0 02/27/189: CBC w Diff NO MAN DIFF REQ, RBC 2.83 L, MCV 90.0, MCH 30.3, MCHC 33.7, RDW 16.4 H, MPV 8.1, Gran % 82.3 H, Lymphocytes % 7.5 L, Monocytes % 9.4 H, Eosinophils % 0.8, Basophils % 0, Absolute Granulocytes 12.0 H, Absolute Lymphocytes 1.1 L, Absolute Monocytes 1.4 H, Absolute Eosinophils 0.1, Absolute Basophils 0 02/27/18 1800: CBC w Diff Cancelled, WBC Cancelled, RBC Cancelled, Hgb Cancelled, Hct Cancelled , MCV Cancelled, MCH Cancelled, MCHC Cancelled, RDW Cancelled, Plt Count Cancelled, MPV Cancelled Assessment/Plan Assessment/Plan Assessment: 1. Atrial fibrillation, anticoagulated on warfarin 2. Supratherapeutic INR, improved-INR 1.2 today 3. Mild troponin elevation 4. hemorrhagic shock l secondary to retroperitoneal hematoma recommendations: -Anticoagulation remains on hold. status post therapy with vitamin K. -Out of bed as tolerated -I had an extended discussion with the patient and the family again about her atrial fibrillation and anticoagulation status. The anticoagulation is on hold for the foreseeable future. If, after further discussion, the patient would be able to be anticoagulated short term in the future, we could consider her for atrial appendage exclusion device implantation for her atrial fibrillation. In addition, it would be useful to have a consensus about the patient's feasibility for long-term anticoagulation and the timing of anticoagulation restart from urology, etc. Continue telemetry? No
--- NOTE | 2018-03-01 13:47 | PN- Nephrology ---
Assessment/Plan Nephrology Assessment: MONSERRAT - 2/2 ATN in the setting of hypotension from L perirenal bleed while on outpatient ARB/Lasix - improved. L perirenal bleed - Worsening on CT imaging but no arterial bleeding on CTA. Hg now stable. No clear mass on non-contrast CT imaging. Once she stabilizes, should probably have more dedicated imaging (preferably MR once renal function back to baseline) to see exactly what may have led to the bleeding. Urology is following. Hypoxia - pleural effusions noted on CT scan. UOP picking up. Had been on lasix as an outpatient - at this point, I think we can restart. DM - Given that her SCr is now 1.4, I think starting metformin on discharge would be OK. HTN - I would hold off on adding back the ARB until her SCr is back to baseline - there is no emergency to doing so. Suggestion: -Restart home lasix (home med list said 80mg PO daily) -OK to restart metformin on discharge as long as SCr is stable and/or improving -Hold off on ARB until SCr back to baseline -Will eventually need more dedicated renal imaging once clinically back to baseline (preferably MR when renal function back to baseline) - Urology following Will see PRN Please call [phone] with ?'s Subjective Subjective: SCr down to 1.4 Breathing a bit labored Hg stable at 9.0 Objective Vital Signs and I&Os Vital Signs Date Time Temp Pulse Resp B/P B/P Pulse O2 O2 Flow FiO2 Mean Ox Delivery Rate 03/01 1301 Nasal 2.0L Cannula 03/01 0600 98.0 85 16 158/68 95 03/01 0000 95 CPAP 02/28 2154 98.7 64 18 144/64 95 Room Air 02/28 1700 98.1 77 18 142/60 96 Room Air 02/28 1600 Room Air 02/28 1418 97.3 73 20 148/60 95 Room Air Intake & Output 03/01 1600 03/01 0400 02/28 1600 02/28 0400 02/27 0400 Intake Total 400 420 949 044 0284 240 Output Total 690 965 2061 350 550 270 Balance -475 -130 -710 440 530 -30 Intake, Blood 350 Product Intake, IV 20 0 Intake, Oral 400 400 707 028 7772 240 Number 0 0 1 1 Bowel Movements Output, Urine 223 036 5434 350 550 270 Physical Exam: Gen - NAD HEENT - supple CV - RRR Chest - scant basilar crackles Abd - soft, NTND Ext - warm, no edema Neuro - AOX3, grossly nonfocal Current Medications: Current Medications Sig/Mauro Start time Last Medication Dose Route Stop Time Status Admin Furosemide 80 MG DAILY 03/01 1315 AC PO Insulin Aspart 0 TIDAC 02/25 1200 AC 03/01 SC 1212 Levothyroxine Sodium 0.075 MG 0700 02/28 0700 AC 03/01 PO 0614 Ondansetron HCl 4 MG Q6P PRN 02/24 1045 AC 02/24 IV 1644 Simethicone 40 MG Q4P PRN 02/26 1100 AC 02/26 PO 1140 Tramadol HCl 50 MG Q12P PRN 02/26 0945 AC PO Results Pertinent Lab Results: Laboratory Tests 03/01 02/28 0607 1825 Chemistry Sodium (137 - 145 mmol/L) 134 L Potassium (3.5 - 5.1 mmol/L) 4.3 Chloride (98 - 107 mmol/L) 99 Carbon Dioxide (22 - 30 mmol/L) 26 Anion Gap (5 - 16) 10 BUN (7 - 17 mg/dL) 78 H Creatinine (0.5 - 1.0 mg/dL) 1.4 H Estimated GFR (>60 ml/min) 36 L Glucose (65 - 99 mg/dL) 161 H Calcium (8.4 - 10.2 mg/dL) 8.7 Phosphorus (2.5 - 4.5 mg/dL) 2.6 Magnesium (1.6 - 2.3 mg/dL) 2.6 H Total Bilirubin (0.2 - 1.3 mg/dL) 1.3 AST (14 - 36 U/L) 25 ALT (9 - 52 U/L) 33 Albumin (3.5 - 5.0 g/dL) 2.8 L Hematology CBC w Diff MAN DIFF ORDERED NO MAN DIFF REQ WBC (4.8 - 10.8 /CUMM) 13.4 H 14.6 H RBC (4.20 - 5.40 /CUMM) 2.87 L 3.01 L Hgb (12.0 - 16.0 G/DL) 9.0 L 9.1 L Hct (37 - 47 %) 26.1 L 27.0 L MCV (81.0 - 99.0 FL) 90.9 89.8 MCH (27.0 - 31.0 PG) 31.2 H 30.3 MCHC (33.0 - 37.0 G/DL) 34.3 33.7 RDW (11.5 - 14.5 %) 16.5 H 16.3 H Plt Count (130 - 400 /CUMM) 240 265 MPV (7.4 - 10.4 FL) 7.9 7.4 Gran % (42.2 - 75.2 %) 80.4 H 82.8 H Lymphocytes % (20.5 - 51.1 %) 7.0 L 6.5 L Monocytes % (1.7 - 9.3 %) 11.1 H 9.8 H Eosinophils % (0 - 5 %) 1.5 0.9 Basophils % (0.0 - 2.0 %) 0 0 Absolute Granulocytes (1.4 - 6.5 /CUMM) 10.7 H 12.1 H Segmented Neutrophils (42.2 - 75.2 %) 82 H Band Neutrophils (0.0 - 5.0 %) 3 Absolute Lymphocytes (1.2 - 3.4 /CUMM) 0.9 L 0.9 L Lymphocytes (20.5 - 51.1 %) 3 L Monocytes (1.7 - 9.3 %) 10 H Absolute Monocytes (0.10 - 0.60 /CUMM) 1.5 H 1.4 H Absolute Eosinophils (0.0 - 0.7 /CUMM) 0.2 0.1 Absolute Basophils (0.0 - 0.2 /CUMM) 0 0 Metamyelocytes (0.0 - 1.0 %) 2 H Nucleated RBCs (0.0 - 0.0 /100WBC) 1 H Platelet Estimate (ADEQUATE) ADEQUATE Polychromasia 1+ Poikilocytosis FEW Anisocytosis 1+ Macrocytic Cells FEW 02/28 02/27 0534 2109 Chemistry Sodium (137 - 145 mmol/L) 133 L Potassium (3.5 - 5.1 mmol/L) 4.4 Chloride (98 - 107 mmol/L) 98 Carbon Dioxide (22 - 30 mmol/L) 25 Anion Gap (5 - 16) 10 BUN (7 - 17 mg/dL) 87 H Creatinine (0.5 - 1.0 mg/dL) 2.0 H Estimated GFR (>60 ml/min) 24 L Glucose (65 - 99 mg/dL) 185 H Calcium (8.4 - 10.2 mg/dL) 8.7 Phosphorus (2.5 - 4.5 mg/dL) 2.8 Magnesium (1.6 - 2.3 mg/dL) 3.0 H Total Bilirubin (0.2 - 1.3 mg/dL) 1.2 AST (14 - 36 U/L) 26 ALT (9 - 52 U/L) 41 Albumin (3.5 - 5.0 g/dL) 3.0 L Hematology CBC w Diff NO MAN DIFF REQ NO MAN DIFF REQ WBC (4.8 - 10.8 /CUMM) 13.5 H 14.6 H RBC (4.20 - 5.40 /CUMM) 2.90 L 2.83 L Hgb (12.0 - 16.0 G/DL) 8.8 L 8.6 L Hct (37 - 47 %) 26.0 L 25.5 L MCV (81.0 - 99.0 FL) 89.7 90.0 MCH (27.0 - 31.0 PG) 30.3 30.3 MCHC (33.0 - 37.0 G/DL) 33.8 33.7 RDW (11.5 - 14.5 %) 16.5 H 16.4 H Plt Count (130 - 400 /CUMM) 230 223 MPV (7.4 - 10.4 FL) 7.6 8.1 Gran % (42.2 - 75.2 %) 82.5 H 82.3 H Lymphocytes % (20.5 - 51.1 %) 6.3 L 7.5 L Monocytes % (1.7 - 9.3 %) 10.0 H 9.4 H Eosinophils % (0 - 5 %) 1.2 0.8 Basophils % (0.0 - 2.0 %) 0 0 Absolute Granulocytes (1.4 - 6.5 /CUMM) 11.1 H 12.0 H Absolute Lymphocytes (1.2 - 3.4 /CUMM) 0.8 L 1.1 L Absolute Monocytes (0.10 - 0.60 /CUMM) 1.3 H 1.4 H Absolute Eosinophils (0.0 - 0.7 /CUMM) 0.2 0.1 Absolute Basophils (0.0 - 0.2 /CUMM) 0 0 06/13 06/13 1800 1314 Hematology CBC w Diff Cancelled NO MAN DIFF REQ WBC (4.8 - 10.8 /CUMM) Cancelled 13.9 H RBC (4.20 - 5.40 /CUMM) Cancelled 2.52 L Hgb (12.0 - 16.0 G/DL) Cancelled 7.6 L Hct (37 - 47 %) Cancelled 22.5 L MCV (81.0 - 99.0 FL) Cancelled 89.4 MCH (27.0 - 31.0 PG) Cancelled 30.2 MCHC (33.0 - 37.0 G/DL) Cancelled 33.8 RDW (11.5 - 14.5 %) Cancelled 16.9 H Plt Count (130 - 400 /CUMM) Cancelled 223 MPV (7.4 - 10.4 FL) Cancelled 8.4 Gran % (42.2 - 75.2 %) 84.7 H Lymphocytes % (20.5 - 51.1 %) 5.7 L Monocytes % (1.7 - 9.3 %) 9.3 Eosinophils % (0 - 5 %) 0.3 Basophils % (0.0 - 2.0 %) 0 Absolute Granulocytes (1.4 - 6.5 /CUMM) 11.8 H Absolute Lymphocytes (1.2 - 3.4 /CUMM) 0.8 L Absolute Monocytes (0.10 - 0.60 /CUMM) 1.3 H Absolute Eosinophils (0.0 - 0.7 /CUMM) 0 Absolute Basophils (0.0 - 0.2 /CUMM) 0 02/27 02/26 5724 0513 Chemistry Sodium (137 - 145 mmol/L) 136 L Potassium (3.5 - 5.1 mmol/L) 4.4 Chloride (98 - 107 mmol/L) 101 Carbon Dioxide (22 - 30 mmol/L) 19 L Anion Gap (5 - 16) 16 BUN (7 - 17 mg/dL) 84 H Creatinine (0.5 - 1.0 mg/dL) 2.2 H Estimated GFR (>60 ml/min) 21 L Glucose (65 - 99 mg/dL) 191 H Calcium (8.4 - 10.2 mg/dL) 9.0 Phosphorus (2.5 - 4.5 mg/dL) 4.1 Magnesium (1.6 - 2.3 mg/dL) 3.1 H Total Bilirubin (0.2 - 1.3 mg/dL) 1.4 H AST (14 - 36 U/L) 34 ALT (9 - 52 U/L) 44 Albumin (3.5 - 5.0 g/dL) 3.1 L Hematology CBC w Diff NO MAN DIFF REQ NO MAN DIFF REQ WBC (4.8 - 10.8 /CUMM) 14.7 H 18.5 H RBC (4.20 - 5.40 /CUMM) 2.61 L 2.76 L Hgb (12.0 - 16.0 G/DL) 8.0 L 8.4 L Hct (37 - 47 %) 23.2 L 24.8 L MCV (81.0 - 99.0 FL) 89.0 89.9 MCH (27.0 - 31.0 PG) 30.9 30.5 MCHC (33.0 - 37.0 G/DL) 34.7 34.0 RDW (11.5 - 14.5 %) 16.7 H 16.8 H Plt Count (130 - 400 /CUMM) 204 199 MPV (7.4 - 10.4 FL) 8.3 8.3 Gran % (42.2 - 75.2 %) 84.9 H 85.8 H Lymphocytes % (20.5 - 51.1 %) 5.1 L 4.1 L Monocytes % (1.7 - 9.3 %) 9.6 H 10.1 H Eosinophils % (0 - 5 %) 0.1 0 Basophils % (0.0 - 2.0 %) 0.3 0 Absolute Granulocytes (1.4 - 6.5 /CUMM) 12.5 H 15.9 H Absolute Lymphocytes (1.2 - 3.4 /CUMM) 0.8 L 0.8 L Absolute Monocytes (0.10 - 0.60 /CUMM) 1.4 H 1.9 H Absolute Eosinophils (0.0 - 0.7 /CUMM) 0 0 Absolute Basophils (0.0 - 0.2 /CUMM) 0 0 02/26 1442 Hematology CBC w Diff NO MAN DIFF REQ WBC (4.8 - 10.8 /CUMM) 17.9 H RBC (4.20 - 5.40 /CUMM) 2.73 L Hgb (12.0 - 16.0 G/DL) 8.3 L Hct (37 - 47 %) 24.3 L MCV (81.0 - 99.0 FL) 89.2 MCH (27.0 - 31.0 PG) 30.4 MCHC (33.0 - 37.0 G/DL) 34.0 RDW (11.5 - 14.5 %) 16.6 H Plt Count (130 - 400 /CUMM) 197 MPV (7.4 - 10.4 FL) 8.0 Gran % (42.2 - 75.2 %) 88.2 H Lymphocytes % (20.5 - 51.1 %) 3.7 L Monocytes % (1.7 - 9.3 %) 8.1 Eosinophils % (0 - 5 %) 0 Basophils % (0.0 - 2.0 %) 0 Absolute Granulocytes (1.4 - 6.5 /CUMM) 15.8 H Absolute Lymphocytes (1.2 - 3.4 /CUMM) 0.7 L Absolute Monocytes (0.10 - 0.60 /CUMM) 1.4 H Absolute Eosinophils (0.0 - 0.7 /CUMM) 0 Absolute Basophils (0.0 - 0.2 /CUMM) 0 Imaging/Other Studies: None new
[2018-03-01 22:52] VITALS: BP 152/90
[2018-03-02 06:24] VITALS: BP 132/60
[2018-03-02 08:17] LABS: ABSOLUTE BASOPHIL COUNT 0 /CUMM (0.0-0.2); ABSOLUTE EOSINOPHIL COUNT 0.2 /CUMM (0.0-0.7); ABSOLUTE GRANULOCYTE CT 11.3 /CUMM (1.4-6.5); ABSOLUTE MONOCYTE COUNT 1.8 /CUMM (0.10-0.60); BASOPHIL % 0 % (0.0-2.0); EOSINOPHIL % 1.2 % (0-5); GRANULOCYTE % 79.5 % (42.2-75.2); HEMATOCRIT 26.8 % (37-47); MEAN CORPUSCULAR HGB 31.4 PG (27.0-31.0); MEAN CORPUSCULAR HGB CONC 34.4 G/DL (33.0-37.0); MEAN CORPUSCULAR VOLUME 91.2 FL (81.0-99.0); MEAN PLATELET VOLUME 7.5 FL (7.4-10.4); PLATELET COUNT 248 /CUMM (130-400); RBC DISTRIBUTION WIDTH 16.2 % (11.5-14.5); RED BLOOD CELL CT 2.94 /CUMM (4.20-5.40); WHITE BLOOD CELL COUNT 14.2 /CUMM (4.8-10.8)
--- NOTE | 2018-03-02 08:30 | PN- Housestaff ---
See Addendum Subjective Follow-up For: Hemorrhagic shock secondary to left-sided retroperitoneal bleed Tele-Events Since Last Visit: Atrial fibrillation, 7080 Subjective: No overnight events. The patient feels well. She says she still has some abdominal fullness that gets worse with eating but no pain. Her breathing is doing well and she has no chest pain. She feels ready to go to rehab today. Review of Systems Constitutional: Reports: no symptoms. EENTM: Reports: no symptoms. Cardiovascular: Reports: no symptoms. Respiratory: Reports: no symptoms. Gastrointestinal: Reports: see HPI. Genitourinary: Reports: no symptoms. Musculoskeletal: Reports: no symptoms. Skin: Reports: no symptoms. Neurological/Psychological: Reports: no symptoms. Hematologic/Endocrine: Reports: no symptoms. Immunologic/Allergic: Reports: no symptoms. Objective Last 24 Hrs of Vital Signs/I&O Vital Signs Date Time Temp Pulse Resp B/P B/P Pulse O2 O2 Flow FiO2 Mean Ox Delivery Rate 03/02 0624 98.6 85 18 132/60 98 03/01 2252 97.9 85 22 152/90 94 03/01 2037 CPAP 03/01 1301 Nasal 2.0L Cannula Intake & Output 03/02 1600 03/02 0800 03/02 0000 Intake Total 120 240 Output Total 1000 Balance 120 -760 Intake, Oral 120 240 Number 0 0 Bowel Movements Output, Urine 1000 Patient 103.419 kg Weight Physical Exam General Appearance: Alert, Oriented X3, Cooperative, No Acute Distress Skin: vitligo Cardiovascular: irregular Lungs: Clear to Auscultation Extremities: No Edema, Normal Pulses, No Tenderness/Swelling Current Medications: Current Medications Sig/Mauro Start time Last Medication Dose Route Stop Time Status Admin Furosemide 80 MG DAILY 03/01 1315 AC 03/02 PO 0750 Insulin Aspart 0 TIDAC 02/25 1200 AC 03/02 SC 0749 Levothyroxine Sodium 0.075 MG 0700 02/28 0700 AC 03/02 PO 0547 Ondansetron HCl 4 MG Q6P PRN 02/24 1045 AC 02/24 IV 1644 Senna 187 MG AT BEDTIME 03/01 2100 AC 03/01 PO 1848 Senna/Docusate Sodium 1 TAB .STK-MED ONE 03/01 1846 DC PO 03/01 184 Simethicone 40 MG Q4P PRN 02/26 1100 AC 02/26 PO 1140 Tramadol HCl 50 MG Q12P PRN 02/26 0945 AC 03/02 PO 0547 Last 24 Hrs of Lab/Sharan Results Last 24 Hrs of Labs/Mics: Laboratory Tests 03/02/18 0630: Anion Gap 11, Estimated GFR 43 L, BUN/Creatinine Ratio 51.7 H, CBC w Diff Pending, WBC Pending, RBC Pending, Hgb Pending, Hct Pending, MCV Pending, MCH Pending, MCHC Pending, RDW Pending, Plt Count Pending, MPV Pending Assessment/Plan Assessment: Ms. Giron is an 78-year-old female with significant past medical history of hypertension, hyperlipidemia, hypothyroidism, type 2 diabetes, obstructive sleep apnea on CPAP, hereditary Vitiligo, chronic atrial fibrillation previously on warfarin, presented after a syncopal episodeand found to have left-sided retroperitoneal/perinephric hematoma. Problem list: 1. Hemorrhagic shock secondary to left-sided retroperitoneal hematoma 2. Type II myocardial infarction 3. Acute tubular necrosis 4. Acute blood loss anemia 5. Supratherapeutic INR, resolved #Hemorrhagic shock secondary to left-sided retroperitoneal hematoma: Patient presented after syncopal episode and was found to be hypotensive, lethargic, with left-sided abdominal pain. She was found to be anemic with supratherapeutic INR. She was fluid resuscitated and transferred to the ICU. She was given vitamin K. CT abdomen/pelvis showed left-sided perinephric hematoma. Urology was consulted and has recommended conservative management. CTA did not show any arterial bleed. The patient has refused transfer to an outside facility for more aggressive management and would like to be treated here. She has received 8 transfusions of packed red blood cell and 7 transfusions of FFP. Her hemoglobin has recently been stable. She was transferred to telemetry in 02/28/18 after stabilization of her condition. She feels well this morning but does note some abdominal fullness. She feels ready to go to rehab today. -Appreciate urology recommendations -Daily CBC, hemoglobin goal greater than 8 -Continue pain control -Remove Christianson catheter -Holding warfarin indefinitely -Patient will need renal MRI in a couple weeks #Type II myocardial infarction: Patient was found to have elevated troponins that peaked at 0.23. Cardiology has been consulted. This is likely a type II myocardial infarction in the setting of blood loss. -Appreciate cardiology recommendations -Telemetry monitoring #Acute tubular necrosis: Patient was found to have an acute kidney injury her creatinine peaked at 2.8. Nephrology was consulted and believes this is an acute tubular necrosis in the setting of hypotension from the bleed. Her renal function is improving. -Avoid nephrotoxins -Holding ARB and glipizide, can restart metformin outpatient #Supratherapeutic INR, resolved: The patient's INR was 6.7 on arrival. On last check it was 1.28. We will continue to hold warfarin in the setting of bleeding. We will talk to cardiology and nephrology about restarting warfarin in the setting of atrial fibrillation. -Holding warfarin indefinitely #Chronic medical problems: -Continue other home medications DVT prophylaxis with Alps Consistent carbohydrate 3 diet DNR/DNI Problem List: 1. Hemorrhagic shock Pain Ratin Pain Location: no Pain Goal: Remain pain free Pain Plan: see a/p Tomorrow's Labs & Rationales: no Consulting Request: Consulting Specialty: Nephrology
[2018-03-02 10:00] VITALS: BP 150/64
--- NOTE | 2018-03-02 10:17 | Discharge Summary ---
See Addendum Visit Information Visit Dates Admission Date: 02/23/18 Discharge Date: 03/02/2018 Hospital Course Course Attending Physician: Jay Chang MD Primary Care Physician: Nina Montalvo APRN Consulting Request: Consulting Specialty: Nephrology Hospital Course: Ms. Giron is an 78-year-old female with significant past medical history of hypertension, hyperlipidemia, hypothyroidism, type 2 diabetes, obstructive sleep apnea on CPAP, hereditary Vitiligo, chronic atrial fibrillation previously on warfarin, presented after a syncopal episode and found to have left-sided retroperitoneal/perinephric hematoma. Vitals at the time of admission: Temperature 97.0, pulse rate 74, respirations 16, blood pressure 139/60, saturating 100% on room air. Labs at the time of admission: WBC 14.3, H&H 10.3 and 30.7, platelets 264, sodium 135, potassium 4.0, INR 6.70. BUN 43, creatinine 1.5, troponin 0.15, The patient was initially admitted to the [facility] and on 02/28/2018 transferred to the telemetry service. Below is a problem list and a summary of the care she received under us. All imaging studies that were performed over the course of the hospitalization have included on the bottom of this report. Problem list: 1. Left-sided retroperitoneal hematoma 2. Type II myocardial infarction 3. Acute tubular necrosis 4. Acute blood loss anemia 5. Supratherapeutic INR, resolved #Left-sided retroperitoneal hematoma: Patient presented after syncopal episode and was found to be hypotensive, lethargic, with left-sided abdominal pain. She was found to be anemic with supratherapeutic INR. She was fluid resuscitated. She was given vitamin K and FFP (7 Units). CT abdomen/pelvis showed left-sided perinephric hematoma. Urology was consulted and has recommended conservative management. CTA did not show any arterial bleed. The patient has refused transfer to an outside facility for more aggressive management. She has received 8 transfusions of packed red blood cell. Her hemoglobin has recently been stable. Patient will right likely require an MRI in a few weeks to exclude a left renal lesion as the source of bleed. #Type II myocardial infarction: Patient was found to have elevated troponins that peaked at 0.23. Cardiology was consulted. This is likely a type II myocardial infarction in the setting of blood loss. We continued with volume resuscitation including PRBCs transfusion. Hemoglobin goal was 9.20g/dL on the day of discharge . Patient also received a surgical consultation. An echocardiogram was also ordered. #Acute tubular necrosis: Patient was found to have an acute kidney injury her creatinine peaked at 2.8. The patient was anuric. Nephrology was consulted and believes this is an acute tubular necrosis in the setting of hypotension from the bleed. Her renal function is improving. We held her ARB and metformin. At the time of dicharge, her metformin was started again. #Supratherapeutic INR: The patient's INR was 6.7 on arrival. Patient received vitamin K and FFP at the time of admission. On last check it was 1.28. We will continue to hold warfarin in the setting of bleeding. Cardiology recommended that warfarin will need to be held for the foreseeable future. The patient will be reevaluated as an outpatient to assess if anticoagulation is deemed necessary. If, after further discussion, the patient would be able to be anticoagulated short term in the future, she could be considered for atrial appendage exclusion device implantation for her atrial fibrillation. Patient was maintained on a NovoLog sliding scale for her diabetes. #Chronic medical problems: Patient's home medications which she takes on a chronic basis were continued. For DVT prophylaxis the patient was maintained on Alps. Patient was given a consistent carbohydrate 3 diet. Patient was a DNR/DNI over the course of the admission. Allergies: Coded Allergies: NO KNOWN ALLERGIES (06/01/14) Pertinent Lab Results: SERVICE DATE: 02/23/18 EXAM TYPE: CAT - CT ABD & PELVIS W/O IV CONTRAS EXAMINATION: CT ABDOMEN AND PELVIS WITHOUT CONTRAST CLINICAL INFORMATION: Flank pain. Syncope. COMPARISON: Pelvic CT 05/31/2014. TECHNIQUE: Multidetector volumetric imaging was performed from the superior aspect of the liver through the pubic symphysis. Sagittal and coronal reformatted images were obtained on the technologist's workstation. DLP: 1331 mGy-cm FINDINGS: LUNG BASES: Suspect mild subsegmental atelectasis in the left lower lobe and lingula. Possible trace left pleural fluid without large effusion. Small hiatal hernia. LIVER, GALLBLADDER, AND BILIARY TREE: Suspect mild focal fatty infiltration in segment 4 adjacent to the falciform ligament. There are calculi in the gallbladder fossa, either within the cystic duct or decompressed gallbladder (if no prior history of cholecystectomy). No significant biliary ductal dilatation. PANCREAS: Unremarkable. SPLEEN: Unremarkable. ADRENAL GLANDS: Unremarkable. KIDNEYS AND URETERS: There is heterogeneous material within and abutting the left kidney as well as extending within the left perinephric space. Favor a component of this heterogeneous material represents blood product. Local left perinephric stranding is demonstrated. There is either a heterogeneous fluid collection or mass arising from the posterior aspect of the left mid to lower kidney, measuring approximately 7.1 x 5.0 cm transaxially on image 36/98. Other seemingly loculated/organized fluid tracks along the posterior left pararenal space into the pelvis. No hydronephrosis. No renal or ureteral calculi. BLADDER: No focal abnormality. GASTROINTESTINAL TRACT: Bowel gas pattern is nonobstructive. No evidence of acute bowel inflammation. There are scattered clonic diverticula without evidence of diverticulitis. The appendix is unremarkable. ABDOMINAL WALL: No significant hernia is appreciated. LYMPH NODES: No bulky adenopathy. VASCULAR: Scattered atherosclerotic disease including coronary artery calcification. No AAA. PELVIC VISCERA: No free pelvic fluid. Calcified uterine fibroid. No suspicious adnexal mass. OSSEOUS STRUCTURES: No acute osseous abnormality. Multilevel degenerative changes of the spine. Right proximal femoral hardware is redemonstrated. Healed right pubic bone fracture. IMPRESSION: 1. Heterogeneous abnormal radiodensity extending from the left posterior kidney into the left pararenal space. Findings are concerning for local heterogeneous hemorrhage. The etiology is uncertain, and hemorrhage secondary to supratherapeutic INR or underlying neoplasm can be considered (i.e. renal cell carcinoma or AML). An infectious process is considered less likely. Consider correlation with urinalysis/urine cytology. Recommend short-term followup abdominal MRI or CT scan without and with contrast to assess for an underlying enhancing mass lesion. 2. No AAA. 3. Other nonacute findings as above. Findings and recommendations discussed with Dr. Lund at 3:35 PM on 02/23/2018. DICTATED BY: Mahamed Driver MD SERVICE DATE: 02/23/18 EXAM TYPE: RAD - XRY-PORTABLE CHEST XRAY EXAMINATION: XR CHEST, PORTABLE CLINICAL INFORMATION: Right chest pain. Retroperitoneal bleeding. COMPARISON: Chest radiography 10/15/2017. TECHNIQUE: Portable frontal view of the chest was obtained. FINDINGS: The lungs are well expanded. Linear opacification in the left lower lung suggesting subsegmental atelectasis. Suspect a degree of bronchovascular crowding over the right lower lung (less likely consolidation). No pneumothorax or pleural effusion. No pulmonary edema. No mediastinal widening. No acute osseous abnormalities. Healed bilateral rib fractures. IMPRESSION: 1. Suspected focal bronchovascular crowding versus less likely parenchymal opacification overlying the right lower lung, which is of indeterminate/doubtful clinical significance. 2. Left lower lung subsegmental atelectasis. DICTATED BY: Mahamed Driver MD SERVICE DATE: 02/23/18 EXAM TYPE: RAD - XRY-PORTABLE CHEST XRAY EXAMINATION: XR CHEST, PORTABLE CLINICAL INFORMATION: Right chest pain. Retroperitoneal bleeding. COMPARISON: Chest radiography 10/15/2017. TECHNIQUE: Portable frontal view of the chest was obtained. FINDINGS: The lungs are well expanded. Linear opacification in the left lower lung suggesting subsegmental atelectasis. Suspect a degree of bronchovascular crowding over the right lower lung (less likely consolidation). No pneumothorax or pleural effusion. No pulmonary edema. No mediastinal widening. No acute osseous abnormalities. Healed bilateral rib fractures. IMPRESSION: 1. Suspected focal bronchovascular crowding versus less likely parenchymal opacification overlying the right lower lung, which is of indeterminate/doubtful clinical significance. 2. Left lower lung subsegmental atelectasis. DICTATED BY: Mahamed Driver MD SERVICE DATE: 02/24/18 EXAM TYPE: CARD - ECHOCARDIOGRAM JAKE GIRON Age: 78 : 1940 Gender: F Exam Date: 02/24/2018 10:50 Exam Location: [facility] Ht (in): 67 Wt (lb): 216 BSA: 2.19 BP: 102 / Ordering Physician: Rhonda Bear MD Referring Physician: Phillip Corley MD Technologist: Heike Topete ALENA Room Number: 109 Indications: CHEST PAIN Rhythm: Sinus Technical Quality: Fair FINDINGS Left Ventricle Normal size left ventricle. No obvious regional wall motion abnormalities. Normal left ventricular ejection fraction estimated at 60-65%. Right Ventricle Right ventricle at upper limits of normal. Right Atrium Mild right atrial dilatation. Left Atrium Mild to moderate left atrial dilatation. Mitral Valve Mitral valve thickened. Mitral annular calcification. Mild mitral regurgitation. Aortic Valve Trileaflet aortic valve. Diffuse thickening (sclerosis) of the aortic valve cusps without reduced excursion. No aortic stenosis. No aortic regurgitation. Tricuspid Valve Tricuspid valve not well visualized, grossly normal. Mild tricuspid regurgitation. Tricuspid regurgitation jet directed toward the septum. Right ventricular systolic pressure estimated to be elevated at 50 mmHg. Pulmonic Valve Structurally normal pulmonic valve. Trace to mild pulmonic regurgitation. Pericardium No pericardial effusion. Great Vessels Normal size aortic root and proximal ascending aorta. CONCLUSIONS 1. Moderate aortic sclerosis is present with no valvular stenosis or insufficiency 2. Mitral leaflet thickening is present with anular calcification and mild mitral insufficiency with mild to moderate left atrial enlargement. 3. There is no significant pericardial fluid present. 4. The left ventricular chamber size and systolic function appear normal. 5. Mild tricuspid insufficiency is present with right atrial enlargement, minimal to mild pulmonic insufficiency and pulmonary hypertension with an estimated RV systolic pressure of 60 mmHg. 6. Lipomatous hypertrophy of the interatrial septum is present. Phillip Corley M.D. SERVICE DATE: 02/24/18 EXAM TYPE: CARD - ECHOCARDIOGRAM JAKE GIRON Age: 78 : 1940 Gender: F Exam Date: 02/24/2018 10:50 Exam Location: [facility] Ht (in): 67 Wt (lb): 216 BSA: 2.19 BP: 102 / Ordering Physician: Rhonda Bear MD Referring Physician: Phillip Corley MD Technologist: Heike Topete ALENA Room Number: 109 Indications: CHEST PAIN Rhythm: Sinus Technical Quality: Fair FINDINGS Left Ventricle Normal size left ventricle. No obvious regional wall motion abnormalities. Normal left ventricular ejection fraction estimated at 60-65%. Right Ventricle Right ventricle at upper limits of normal. Right Atrium Mild right atrial dilatation. Left Atrium Mild to moderate left atrial dilatation. Mitral Valve Mitral valve thickened. Mitral annular calcification. Mild mitral regurgitation. Aortic Valve Trileaflet aortic valve. Diffuse thickening (sclerosis) of the aortic valve cusps without reduced excursion. No aortic stenosis. No aortic regurgitation. Tricuspid Valve Tricuspid valve not well visualized, grossly normal. Mild tricuspid regurgitation. Tricuspid regurgitation jet directed toward the septum. Right ventricular systolic pressure estimated to be elevated at 50 mmHg. Pulmonic Valve Structurally normal pulmonic valve. Trace to mild pulmonic regurgitation. Pericardium No pericardial effusion. Great Vessels Normal size aortic root and proximal ascending aorta. CONCLUSIONS 1. Moderate aortic sclerosis is present with no valvular stenosis or insufficiency 2. Mitral leaflet thickening is present with anular calcification and mild mitral insufficiency with mild to moderate left atrial enlargement. 3. There is no significant pericardial fluid present. 4. The left ventricular chamber size and systolic function appear normal. 5. Mild tricuspid insufficiency is present with right atrial enlargement, minimal to mild pulmonic insufficiency and pulmonary hypertension with an estimated RV systolic pressure of 60 mmHg. 6. Lipomatous hypertrophy of the interatrial septum is present. Phillip Corley M.D. SERVICE DATE: 02/25/18-1435 EXAM TYPE: CAT - CT ABD & PELVIS W/O IV CONTRAS EXAMINATION: CT ABDOMEN AND PELVIS WITHOUT CONTRAST CLINICAL INFORMATION: Hemorrhage. Dropping hemoglobin and hematocrit. Transfusion required. Evaluate for interval change. ATN COMPARISON: 02/23/18 TECHNIQUE: Multidetector volumetric imaging was performed from the superior aspect of the liver through the pubic symphysis. Sagittal and coronal reformatted images were obtained on the technologist's workstation. DLP: 1441 mGy-cm FINDINGS: Digital rubber compounder: There are multiple gas-filled loops of bowel throughout the abdomen and pelvis including large and small bowel. Jewelry obscures some of the anatomy. Previous right proximal femoral instrumentation. Visualized lower chest: There are calcifications in the region of the aortic and mitral valve and there is coronary calcification. The central vessels are prominent. There is new bilateral pleural fluid. There is bilateral lung base disease. Interval worsening in the lower chest. LIVER, GALLBLADDER, AND BILIARY TREE: No suspicious focal liver lesion. The liver contour appears smooth. Multiple gallstones. No definite biliary dilation. PANCREAS: No definite mass. SPLEEN: No focal abnormality. ADRENAL GLANDS: The right adrenal gland is normal. The left adrenal gland is displaced ventrally. KIDNEYS AND URETERS: There is no dilation of the intrarenal collecting system on the right. No right renal calculus or suspicious right renal mass. The left kidney is distorted and displaced. There is a heterogeneous hyperdense perinephric hematoma. This extends throughout the perinephric and posterior pararenal spaces into the extraperitoneal space in the deep left pelvis. There is blood in the pelvic recesses. There are fluid levels. This has increased. At the level of the lower pole of the kidney this measures 02/25/18-8.2 x 11.0 cm. 02/23/18-7.5 x 8.7 cm The blood is larger in the extraperitoneal space of the left lower quadrant ventral to the left iliac is and ventral to the distal left psoas and the amount of intraperitoneal blood is new or increased. There is now fluid around the liver and a small amount around the spleen. The tissue planes around the abdominal aorta are maintained. No convincing evidence of hemorrhage into the thigh. BLADDER: Catheter decompresses the urinary bladder GASTROINTESTINAL TRACT: No localized area of colonic wall thickening. No small bowel transition. No definite abnormality of stomach. ABDOMINAL WALL: There is stranding. No definite hernia. LYMPH NODES: There are no measurably enlarged abdominal or pelvic lymph nodes. VASCULAR: There is no abdominal aortic aneurysm. There is extensive atherosclerotic calcification. PELVIC VISCERA: Limited assessment. Calcified uterine fibroid. OSSEOUS STRUCTURES: Artifact related to the right proximal femoral instrumentation. Heterotopic ossification adjacent to the right lesser trochanter. IMPRESSION: There is a large left perinephric and para renal hemorrhage which is increasing and now extends into the extraperitoneal space and intraperitoneal spaces including the pelvis. The left kidney is misshapen and displaced. New worsening abnormality in the lower chest bilaterally. Diagnostic options and management options were briefly discussed with the ordering service. The patient is in renal failure making close correlation necessary regarding risks and benefits. This critical result was discussed with the ordering physician Dr. Bear at 1706 on 02/25/18 and it was ascertained that the content and urgency of the report was understood at the time of direct communication. Dr. Leach was notified electronically at the same time DICTATED BY: Jaswinder Lanier MD SERVICE DATE: 02/25/18 EXAM TYPE: CAT - CT ABD & PELVIS ANGIOGRAM EXAMINATION: CT ANGIOGRAM ABDOMEN AND PELVIS CLINICAL INFORMATION: Supratherapeutic INR. Perinephric hematoma. Decreasing hemoglobin. Enlarging hemorrhage on CT The previous CT findings were discussed with the ordering service. The patient is critically ill in the ICU with renal failure and an enlarging perinephric hematoma. The ordering service determined that the risk benefit ratio supported IV contrast administration for CT angiography COMPARISON: Earlier same day TECHNIQUE: CT angiography of the abdomen and pelvis. Multiple axial images were obtained through the abdomen and pelvis following the administration of 95 mL of Optiray 320 intravenous contrast. Images were reviewed on a dedicated 3-D workstation. DLP: 929 mGy-cm FINDINGS: There is artifact related to positioning the upper extremities Vascular: Abdominal aorta: There is atherosclerotic irregularity. No abdominal aortic aneurysm. No dissection. The tissue planes around the abdominal aorta are maintained. Celiac axis: There is some plaque at the origin of the celiac. The celiac enhances. SMA: The hepatic artery arises from the SMA. There is plaque at the origin of some of the colic branches. Right renal artery: There is at least moderate narrowing at the origin of the right renal artery. Left renal artery: The left renal artery enhances. There is no active extravasation from the left renal artery. JOYA: There is plaque at the origin of the JOYA. The JOYA enhances. Right lower extremity: The right common iliac artery is patent with atherosclerotic plaque. The internal iliac artery is patent. The external iliac artery is patent. The right superficial femoral artery and profunda femoral artery are patent. Left lower extremity: The left common iliac artery is patent. The left internal iliac artery is patent. The left external iliac artery is patent. Left superficial femoral and profunda femoral artery are patent. There is no active extravasation in the left retroperitoneum Venous: The venous system was not enhanced. Nonvascular: No suspicious abnormality demonstrated in the liver, spleen, adrenal glands, pancreas or right kidney. There is a left perinephric, retroperitoneal, and extraperitoneal hemorrhage with hemoperitoneum again demonstrated. There are rim calcifications in the expected region of the gallbladder. There may be a diverticulum in the region of the descending duodenum. There is a urinary bladder catheter. Partially calcified uterine fibroid. No evidence of small bowel obstruction. There is bibasilar pleural and parenchymal disease. Metallic artifact related to right proximal femoral instrumentation. IMPRESSION: There is no evidence of arterial extravasation to identify the source of bleeding related to the known left perinephric, retroperitoneal, extraperitoneal and intraperitoneal hemorrhage. This critical result was discussed with the physician on the housestaff caring for the patient at [facility] at 1918 on 02/25/18 and it was ascertained that the content and urgency of the report was understood at the time of direct communication. DICTATED BY: Jaswinder Lanier MD Disposition Summary Disposition Principal Diagnosis: 1. Left-sided retroperitoneal hematoma Additional Diagnosis: 2. Type II myocardial infarction 3. Acute tubular necrosis 4. Acute blood loss anemia 5. Supratherapeutic INR, resolved Discharge Disposition: SNF Discharge Instructions General Discharge Information Code Status: Do Not Resucitate/Intubat Patient's Diet: Consistent carbohydrate diet. Patient's Activity: As Tolerated Follow-Up Instructions/Appts: Please take medications as directed. Please follow up with primary care, cardiology, and urology. In a few weeks will need either CT or MRI of kidneys without and with IV contrast. Medications at Discharge Discharge Medications: Stop taking the following medications: Warfarin Sodium (Warfarin Sodium) 5 MG TABLET ORAL Qty = 180 Warfarin Sodium (Coumadin) 10 MG TABLET ORAL EVERY SUNDAY Glipizide (Glipizide ER) 2.5 MG TAB.ER.24 ORAL DAILY Qty = 90 Losartan Potassium (Losartan Potassium) 50 MG TABLET ORAL DAILY Qty = 90 Continue taking these medications: Furosemide (Furosemide) 40 MG TABLET 2 Tablet ORAL Every Morning Qty = 180 Potassium Chloride (Potassium Chloride) 10 MEQ CAPSULE.ER 1 Capsule ORAL DAILY Qty = 90 Allopurinol (Allopurinol) 300 MG TABLET 1 Tablet ORAL DAILY Qty = 90 Comments: NOT GIVEN IN HOSPITAL Gemfibrozil (Gemfibrozil) 600 MG TABLET 1 Tablet ORAL TWICE DAILY Qty = 180 Levothyroxine Sodium (Levothyroxine Sodium) 75 MCG TABLET 1 Tablet ORAL DAILY Qty = 90 Metformin HCl (Metformin HCl ER) 500 MG TAB.ER.24H 2 Tablet ORAL TWICE DAILY Qty = 360 Exenatide Microspheres (Bydureon Pen) (Unknown Strength) PEN.INJCTR Unknown Dose Inject into fatty tissue EVERY SUNDAY Copies To: Dwight TERRY,Kodak Rodriguez; Vianca TERRY,Jarvis South; Bette TERRY,Thien Cervantes; Johnie Corley MD
== END 2018-03-02 12:50 | DRG 314 ==
LOC: ERH 13:32 → ERHI 16:00 → CRI 16:00 → CANRESERV 16:37 → ENRESERV 16:37 → ENTRNSPT 17:33 → EDTRNSPT 17:48 → EDTRNSPTSTS 17:48 → EDBEDREQ 17:57 → CMPTRNSPT 18:36 → ENRESERV 18:40 → CRI 19:54 → ENTRNSPT 02-28 11:56 → EDTRNSPTSTS 02-28 12:40 → EDTRNSPT 02-28 12:40 → 1NO 02-28 12:58 → CMPTRNSPT 02-28 13:06 → 1NO 03-01 12:43 → ENPENDDIS 03-02 10:10 → 1NO 03-02 12:50
PROVIDERS: Emergency Medicine; Internal Medicine; Internal Medicine Adolescent Medicine; Student in an Organized Health Care Education/Training Program
PROC: 30233N1 Transfusion of Nonautologous Red Blood Cells into Peripheral Vein, Percutaneous Approach (ICD-10-PCS; principal; 2018-02-23)
DX: R58 Hemorrhage, not elsewhere classified (principal); N17.0 Acute kidney failure with tubular necrosis; R57.8 Other shock; I24.8 Other forms of acute ischemic heart disease; E87.2 Acidosis; D62 Acute posthemorrhagic anemia; Z79.01 Long term (current) use of anticoagulants; E11.9 Type 2 diabetes mellitus without complications; Z79.84 Long term (current) use of oral hypoglycemic drugs; E78.5 Hyperlipidemia, unspecified; Z66 Do not resuscitate; G47.33 Obstructive sleep apnea (adult) (pediatric); E03.9 Hypothyroidism, unspecified; I10 Essential (primary) hypertension; R79.1 Abnormal coagulation profile; I48.0 Paroxysmal atrial fibrillation; N28.89 Other specified disorders of kidney and ureter
CPT/HCPCS: 1NP; CCU; 36415; 36592; 71045; 74174; 74176; 81001; 82436; 86920; 86922; 87040; 87086; 93005; 93010; 93306; 96374; 96375; 96376; 97116-GO; 97161-GP; 97530-GO; 99291; J0131; J1170; J1815; J1940; J2405; J3250; J7040; J7042; P9016